=== PATIENT | female | born 1940 | race Two or more races ===

== ENCOUNTER 2021-03-20 09:08 | Inpatient (IN) | payer MEDICARE, MEDICAID ==
[~2021-03-20] VITALS: Ht 142.2 cm; Wt 55.8 kg
[2021-03-20] MEDS ORDERED: ONDANSETRON ODT 4 MG TAB PO ONE (11:00)
[2021-03-20 11:28] LABS: Basophils # (auto) 0 10 ^3/uL (0-0.2); Basophils % (auto) 0.1 % (0.0-2.0); Eosinophils # (auto) 0 10 ^3/uL (0-0.8); Hematocrit 40.7 % (36.0-46.0); Hemoglobin 13.9 g/dL (12.2-16.2); Lymphocytes # (auto) 0.4 10 ^3/uL (0.4-5.4); Lymphocytes % (auto) 3.4 % (10.0-50.0); Mean Corpuscular Hemoglobin 31.5 pg (28.0-32.0); Mean Corpuscular Volume 92.4 fL (80.0-100.0); Monocytes # (auto) 0.5 10 ^3/uL (0-1.3); Monocytes % (auto) 4.6 % (0.0-12.0); Neutrophils # (auto) 10.5 10 ^3/uL (1.6-8.6); Neutrophils % (auto) 91.9 % (37.0-80.0); Red Cell Distribution Width 13.1 % (11.8-14.3); White Blood Cell 11.5 10^3/uL (4.4-10.8)
[2021-03-20 11:42] LABS: Albumin 3.9 g/dL (3.4-5.0); Calcium 9.2 mg/dL (8.5-10.1); Potassium 4.3 mmol/L (3.5-5.1)
[2021-03-20 12:00] LABS: BUN/Creatinine Ratio 18.4; Bilirubin, Total 0.7 mg/dL (0.2-1.0); Total Protein 8.4 g/dL (6.4-8.2)
[2021-03-20 14:45] LABS: Urine Bacteria FEW /hpf (None Seen); Urine Blood Negative /uL (Negative); Urine Mucus FEW (None Seen); Urine Specific Gravity 1.028 (1.001-1.035); Urine WBC 4 /hpf (0 - 5)
[2021-03-20] MEDS ORDERED: PANTOPRAZOLE 40 MG/10 ML VIAL INJ IV ONE (19:15)
[2021-03-20] MEDS ORDERED: hydrALAZINE HCL 20 MG/ML VL IV PRN (19:15)
[2021-03-20] MEDS ORDERED: SUCRALFATE 1 GM/10 ML ORAL SUSP PO ONE (19:15)
[2021-03-20] MEDS ORDERED: ONDANSETRON HCL 4 MG/2 ML VIAL IV PRN (19:15)
[2021-03-20] MEDS ORDERED: cefTRIAXone 1GM/50ML D5W 50 ML IV ONE (19:15)
[2021-03-20] MEDS ORDERED: hydrOXYzine 25 MG TAB or CAP PO PRN (19:15)
[2021-03-20] MEDS ORDERED: metroNIDAZOLE 500MG/100ML 100 ML IV ONE (19:15)
[2021-03-20] MEDS ORDERED: ALUM & MAG HYDROX-SIMETH LIQ(MAALOX) 30 ML PO PRN (19:30)
[2021-03-20] MEDS ORDERED: NITROGLYCERIN 0.4 MG SL TAB SL PRN (19:30)
[2021-03-20] MEDS ORDERED: HYDROcodone-ACET 5/325MG TAB PO PRN (19:30)
[2021-03-20] MEDS ORDERED: LORazepam 0.5 MG TAB PO PRN (19:30)
[2021-03-20] MEDS ORDERED: MORPHINE SULFATE INJECTION 2 MG/ML SYRG IV PRN ×2 (19:30)
[2021-03-20] MEDS ORDERED: DOCUSATE SOD 100 MG CAP PO PRN (19:30)
[2021-03-20] MEDS ORDERED: METOCLOPRAMIDE HCL 5MG/ml INJ 2ml VIAL IV PRN (19:30)
[2021-03-20 21:16] LABS: Barbiturate Scree,Urine NEGATIVE (NEGATIVE); Benzodiazephine Screen, Urine NEGATIVE (NEGATIVE); Cannabinoid Screen, Urine NEGATIVE (NEGATIVE); Cocaine Screen, Urine NEGATIVE (NEGATIVE)
[2021-03-20 21:21] LABS: Amphetamine Screen, Urine NEGATIVE (NEGATIVE); Opiate Scree,Urine NEGATIVE (NEGATIVE); Phencyclidine Screen, Urine NEGATIVE (NEGATIVE)
[2021-03-20 21:26] LABS: Cholesterol 286 mg/dL (< 200); HDL Cholesterol 61 mg/dL (40-59); LDL Cholesterol 186 mg/dL (< 100); Triglycerides 96 mg/dL (< 150)
[2021-03-20] MEDS ORDERED: ATORVASTATIN 20 MG TAB PO SCH (22:00)
[2021-03-21] MEDS: SODIUM CHLORIDE 0.9% 1,000 ML IV SCH ×2 (04:49→11:45)
[2021-03-21] MEDS: OXYBUTYNIN CHL 5 MG TAB PO SCH ×2 (04:52→10:19)
[2021-03-21] MEDS ORDERED: metroNIDAZOLE 500MG/100ML 100 ML IV SCH ×2 (06:00→14:00)
[2021-03-21 06:47] VITALS: BP 117/46
[2021-03-21] MEDS ORDERED: SUCRALFATE 1 GM/10 ML ORAL SUSP PO SCH ×3 (07:00→17:00)
[2021-03-21] MEDS ORDERED: cefTRIAXone 1GM/50ML D5W 50 ML IV SCH (09:00)
[2021-03-21 09:07] LABS: Basophils # (auto) 0 10 ^3/uL (0-0.2); Basophils % (auto) 0.6 % (0.0-2.0); Eosinophils # (auto) 0 10 ^3/uL (0-0.8); Eosinophils % (auto) 0.5 % (0.0-7.0); Hematocrit 34.4 % (36.0-46.0); Hemoglobin 11.9 g/dL (12.2-16.2); Lymphocytes # (auto) 1.1 10 ^3/uL (0.4-5.4); Lymphocytes % (auto) 21.5 % (10.0-50.0); Mean Corpuscular Hemoglobin 31.8 pg (28.0-32.0); Mean Corpuscular Hgb Conc. 34.6 g/dL (32.0-36.0); Monocytes # (auto) 0.9 10 ^3/uL (0-1.3); Monocytes % (auto) 17.4 % (0.0-12.0); Nucleated Red Blood Cells % 0.1 %; Red Blood Cells 3.74 10^6/uL (4.0-5.20)
[2021-03-21 09:35] LABS: INR 1.08 (0.9-1.15); Partial Thromboplastin Time 25.4 sec (23.6-33.0)
[2021-03-21] MEDS ORDERED: FLORASTOR (S. BOULARDII) 250 MG CAP PO SCH (10:00)
[2021-03-21] MEDS ORDERED: ENOXAPARIN SOD 40 MG/0.4 ML SYRINGE SC SCH (10:00)
[2021-03-21] MEDS ORDERED: VALSARTAN 80 MG TAB PO SCH (10:00)
[2021-03-21] MEDS ORDERED: PANTOPRAZOLE 40 MG/10 ML VIAL INJ IV SCH (10:00)
[2021-03-21] MEDS ORDERED: LEVO500T31 PO (11:56)
[2021-03-21] MEDS ORDERED: PANT40T PO (11:56)
[2021-03-21] MEDS ORDERED: ONDA-144 PO (11:56)
[2021-03-21] MEDS ORDERED: levoFLOXacin 500 MG TAB PO SCH (13:00)
[2021-03-21 13:08] LABS: Albumin 3.2 g/dL (3.4-5.0); Calcium 8.2 mg/dL (8.5-10.1); Potassium 3.5 mmol/L (3.5-5.1)
[2021-03-21 13:14] LABS: BUN/Creatinine Ratio 20.3; Bilirubin, Total 0.3 mg/dL (0.2-1.0); Phosphorus 2.4 mg/dL (2.5-4.90); Total Protein 6.9 g/dL (6.4-8.2); Uric Acid 4.1 mg/dL (2.6-6.0)
[2021-03-23 14:02] LABS: Hepatitis A Ab IgM Negative; Hepatitis B Core IgM Negative
[2021-03-23 14:03] LABS: Hepatitis C Antibody Negative (Negative)
== END 2021-03-21 15:23 | disposition home or self-care (01) | DRG 445 ==
LOC: ER 09:08 → OVERFLOW 19:24 → WEST WING 03-21 04:13
PROVIDERS: ADMIT Hospitalist; ATTEND Family Medicine
DX: K80.20 Calculus of gallbladder without cholecystitis without obstruction (principal); N39.0 Urinary tract infection, site not specified; F41.9 Anxiety disorder, unspecified; K21.9 Gastro-esophageal reflux disease without esophagitis; K44.9 Diaphragmatic hernia without obstruction or gangrene; D72.828 Other elevated white blood cell count; R74.01 Elevation of levels of liver transaminase levels; Z20.822 Contact with and (suspected) exposure to COVID-19; E78.5 Hyperlipidemia, unspecified; I10 Essential (primary) hypertension; Z86.73 Personal history of transient ischemic attack (TIA), and cerebral infarction without residual deficits
CPT/HCPCS: 36415; 74176; 80053; 80061; 80074; 80307; 81001; 82306; 83036; 83690; 83735; 83880; 84100; 84443; 84484; 84550; 85025; 85379; 85610; 85730; 86677; 87040; 87086; 87426; 93005; C9113; G0378; J0696; J3490; Q0162

== ENCOUNTER → 2021-10-16 | Outpatient (CLI) | payer MEDICARE, MEDICAID ==
[~2021-10-16] MED LIST: LEVO500T31 PO; ONDA-144 PO; PANT40T PO
== END | disposition home or self-care (01) ==
LOC: LAB 15:23
PROVIDERS: ATTEND Obstetrics & Gynecology Obstetrics
DX: L28.0 Lichen simplex chronicus (principal)

== ENCOUNTER 2025-02-01 10:54 | Inpatient (IN) | payer MEDICARE, MEDICAID ==
[~2025-02-01] VITALS: Ht 142.2 cm; Wt 56.9 kg
[2025-02-01 12:22] VITALS: PULSE 96; RESP 16; O2SAT 98
[2025-02-01] MEDS ORDERED: SODIUM CHLORIDE 0.9% 1,000 ML IV ONE (13:00)
[2025-02-01 13:42] LABS: Hematocrit 38.4 % (36.0-46.0); Hemoglobin 13.0 g/dL (12.2-16.2); Mean Corpuscular Hemoglobin 31.4 pg (28.0-32.0); Mean Corpuscular Volume 92.5 fL (80.0-100.0); Nucleated Red Blood Cells % 0.0 %
--- NOTE | 2025-02-01 13:42 | DVH ---
CLINICAL HISTORY: Diffuse abdominal pain constipation TECHNIQUE: CT of the abdomen and pelvis was performed without IV contrast. This exam was performed according to our departmental dose optimization program. Up-to-date CT equipment and radiation dose reduction techniques are utilized as appropriate. CTDI 5.6 DLP 234 COMPARISON: CT ABD PELVIS WO/W on DOS: 07/02/24 FINDINGS: Abdomen/Pelvis: The spleen, pancreas, adrenal glands, kidneys, and liver are grossly unremarkable. The uterus is absent. The bladder is not well distended therefore not well evaluated. There are numerous small gallstones. The abdominal aorta is normal in course and caliber. There are mild atherosclerotic calcifications. There is no free intraperitoneal air or fluid. There is no enlarged abdominal pelvic lymph node. There is no small small bowel wall thickening or dilatation. There is a moderate amount of stool within the colon. There is a possible stricture at the distal sigmoid colon, best seen on image 54 series 2. There is mild rectosigmoid colon wall thickening. There is colonic diverticulosis. There is a mildly inflamed diverticulum. There is an irregular linear band seen between the distal and mid sigmoid colon. Other: The imaged lower thorax demonstrates breathing changes. No acute osseous abnormality is evident. There are chronic moderate T12 and mild L2 vertebral body compression fractures. Impression: Mild appearing acute sigmoid colon diverticulitis. Moderate amount of stool within the colon with possible stricture within the distal sigmoid colon. Possibilities include stricture from diverticulitis or mass. Further workup recommended. Linear band between the mid and distal sigmoid colon may represent a fibrotic band with a fistula not excluded. Cholelithiasis.
[2025-02-01 13:56] LABS: Chloride 103 mmol/L (98-107); Potassium 4.4 mmol/L (3.5-5.1); Sodium 139 mmol/L (136-145)
[2025-02-01 13:57] LABS: Anion Gap 8 (5-15); Carbon Dioxide 28 mmol/L (20-31)
[2025-02-01 13:58] LABS: Calcium 9.6 mg/dL (8.7-10.4)
[2025-02-01 14:02] LABS: BUN/Creatinine Ratio 14.7 (10.0-20.0); Blood Urea Nitrogen 11 mg/dL (9-23)
[2025-02-01 14:09] LABS: Glucose 108 mg/dL (74-106)
--- NOTE | 2025-02-01 14:19 | ED.PDOC ---
General HPI Comments 84F who is nepali speaking presents to the ER w/ daughter who can translate and w/ the pt having prior MHx of HTN, GERD, UTI, Fractured spine:SHx of Appendectomy and the c/c of constipation. Daughter reports on the pt having lower ABD pain for 1 month and recently going to [facility] on the end of December and being admitted for 4 days. Pt was diagnosed w/ a UTI and was prescribed Meds. Pt is currently having the lower abd pain associated w/ dysur ia. Denies any symptoms at this time. Patient denies any CP, SOB, dizziness, numbness, weakness, tingling, fever, chills, or recent fall. Chief Complaint: Constipation Time Seen by MD: 13:45 Reviewed notes: Nurses Notes, Medications, Allergies Allergies: Coded Allergies: No Known Drug Allergy (Verified Allergy, Unknown, 03/20/21) Home Meds Active Scripts Ondansetron (Zofran) 4 Mg Tab, 1 TAB PO Q6HR PRN, #20 TAB Prov:JANE GARRISON MD 03/21/21 Pantoprazole Sodium Sesquihydr (Pantoprazole Sodium) 40 Mg Tab, 40 MG PO BID, #30 TAB Prov:JANE GARRISON MD 03/21/21 Levofloxacin (Levaquin) 500 Mg Tab, 500 MG PO DAILY, #7 TAB Prov:JANE GARRISON MD 03/21/21 Information Source: Patient, Relative (Child) Mode of Arrival: Ambulatory Severity: Moderate Duration: Since onset Prehospital treatment: None Onset: Spontaneous Symptoms: Dysuria History of: None Location: Abdomen (lower ABD) associated signs and symptoms: Abdominal Pain, Dysuria Past Medical History PAST MEDICAL HISTORY: GERD, HTN, UTI'S Past Medical History (Other): Back Fracture Surgical History: Appendectomy [employer]ELOPER History: Denies all [employer] Hx Family History Family History: Reviewed,noncontributory to illness, Unknown Social History Smoker: Non-Smoker Alcohol: Denies ETOH Use Drugs: Denies Drug Use Lives In: Home Constitutional: denies: chills, diaphoresis, fatigue, fever, malaise, sweats, weakness, others EENTM: denies: blurred vision, double vision, ear bleeding, ear discharge, ear drainage, ear pain, ear ringing, eye pain, eye redness, hearing loss, mouth pain, mouth swelling, nasal discharge, nose bleeding, nose congestion, nose pain, photophobia, tearing, throat pain, throat swelling, voice changes, others Respiratory: denies: cough, hemoptysis, orthopnea, SOB at rest, shortness of breath, SOB with excertion, stridor, wheezing, others Cardiovascular: denies: chest pain, dizzy spells, diaphoresis, Dyspnea on exertion, edema, irregular heart beat, left arm pain, lightheadedness, palpitations, PND, syncope, others Gastrointestinal: reports: abdominal pain; denies: abdomen distended, blood streaked bowels, constipated, diarrhea, dysphagia, difficulty swallowing, hematemesis, melena, nausea, poor appetite, poor fluid intake, rectal bleeding, rectal pain, vomiting, others Genitourinary: reports: dysuria; denies: abnormal vagina bleeding, burning, dyspareunia, flank pain, frequency, hematuria, incontinence, pain, , vag chandan discharge, urgency, others Neurological: denies: dizziness, fainting, headache, left sided numbness, left sided weakness, numbness, paresthesia, pre-existing deficit, right sided numbness, right sided weakness, seizure, speech problems, tingling, tremors, weakness, others Musculoskeletal: denies: back pain, gout, joint pain, joint swelling, muscle pain, muscle stiffness, neck pain, others Integumetry: denies: bruises, change in color, change in hair/nails, dryness, laceration, lesions, lumps, rash, wounds, others Allergic/Immunocompromised: denies: Difficulty Healing, Frequent Infections, Hives, Itching, others Hematologic/Lymphatic: denies: anemia, blood clots, easy bleeding, easy bruising, swollen glands, others Endocrine: denies: excessive hunger, excessive sweating, excessive thirst, excessive urination, flushing, intolerance to cold, intolerance to heat, unexplained weight gain, unexplained weight loss, others Psychiatric: denies: anxiety, bipolar disorder, depression, hopeless, panic disorder, schizophrenia, sleepless, suicidal, others All Other Systems: Reviewed and Negative Physical Exam General Appearance: Moderate Distress, Normal HEENT: Normal ENT Inspection, PERRL/EOMI, Pharynx Normal, TMs Normal Neck: Full Range of Motion, Non-Tender, Normal, Normal Inspection Respiratory: Chest Non-Tender, Lungs Clear, No Accessory Muscle Use, No Respiratory Distress, Normal Breath Sounds Cardiovascular: No Edema, No JVD, No Murmur, No Gallop, Normal Peripheral Pulses, Regular Rate/Rhythm Breast Exam: Deferred Gastrointestinal: LLQ, No Organomegaly, No Pulsatile Mass, Normal Bowel Sounds, Soft, Suprapubic, Tenderness Genitalia: Deferred Pelvic: Deferred Rectal: Deferred Extremities: No calf tenderness, Normal capillary refill, Normal inspection, Normal range of motion, Non-tender, No pedal edema Musculoskeletal : Apperance: Normal Neurologic: Alert, coconut candy maker II-XII nml as Tested, No Motor Deficits, Normal Affect, Normal Mood, No Sensory Deficits Cerebellar Function: NOT DONE Reflexes: NOT DONE Skin: Dry, Normal Color, Warm Peripheral Pulses: 1+ carotid (R), 1+ carotid (L) Lymphatic: No Adenopathy Was a procedure done? Was a procedure done?: No Differential Diagnosis Kidney stone (Female): Appendicitis, DJD, Pyelonephritis Kidney stone (Male): N/A Penile/Scrotal: N/A Urinary Problem (Male): N/A Urinary Problem (Female): Appendicitis, Impaction, UTI, Other (Diverticulitis abscess mass) X-Ray, Labs, Meds, VS Vital Signs Date Time Temp Pulse Resp B/P (MAP) Pulse Ox O2 Delivery O2 Flow Rate FiO2 02/01/25 13:45 98.9 93 15 152/72 (98) 97 98.9 02/01/25 12:22 96 16 98 Room Air* 0 21 02/01/25 12:18 98.7 102 16 156/95 (115) 97 98.7 02/01/25 10:58 98.0 99 16 148/80 100 98.0 Lab Test 02/01/25 13:27 Range/Units White Blood Count 7.2 4.4-10.8 10^3/uL Red Blood Count 4.15 4.0-5.20 10^6/uL Hemoglobin 13.0 12.2-16.2 g/dL Hematocrit 38.4 36.0-46.0 % Mean Corpuscular Volume 92.5 80.0-100.0 fL Mean Corpuscular Hemoglobin 31.4 28.0-32.0 pg Mean Corpuscular Hemoglobin Concent 34.0 32.0-36.0 g/dL Red Cell Distribution Width 12.6 11.8-14.3 % Platelet Count 309 140-450 10^3/uL Mean Platelet Volume 7.1 6.9-10.8 fL Neutrophils (%) (Auto) 67.1 37.0-80.0 % Lymphocytes (%) (Auto) 20.7 10.0-50.0 % Monocytes (%) (Auto) 10.7 0.0-12.0 % Eosinophils (%) (Auto) 0.8 0.0-7.0 % Basophils (%) (Auto) 0.7 0.0-2.0 % Neutrophils # (Auto) 4.9 1.6-8.6 10 ^3/uL Lymphocytes # (Auto) 1.5 0.4-5.4 10 ^3/uL Monocytes # (Auto) 0.8 0-1.3 10 ^3/uL Eosinophils # (Auto) 0.1 0-0.8 10 ^3/uL Basophils # (Auto) 0.1 0-0.2 10 ^3/uL Nucleated Red Blood Cells 0.0 % Sodium Level 139 136-145 mmol/L Potassium Level 4.4 3.5-5.1 mmol/L Chloride Level 103 98-107 mmol/L Carbon Dioxide Level 28 20-31 mmol/L Anion Gap 8 5-15 Blood Urea Nitrogen 11 9-23 mg/dL Creatinine 0.75 0.550-1.02 mg/dL Glomerular Filtration Rate Calc 77 >90 mL/min BUN/Creatinine Ratio 14.7 10.0-20.0 Serum Glucose 108 H 74-106 mg/dL Calcium Level 9.6 8.7-10.4 mg/dL X-Ray, Labs, Meds, VS Comment Course in the emergency department eventful patient came in complaining of abdominal pain persistent for four days and also constipation patient has been to several places was admitted even once for three days and was sent home and the patient is still in pain she was treated one for diverticulitis CBC is normal BNP negative Urine pending CT abdomen and pelvis shows diverticulitis gallstones compression fracture T12- L2 and there is maybe a formation or abscess or mass around the diverticulitis and need further workup Patient will be admitted for further care up and need to see GI for further care Time of 1ST Reevaluation: 14:15 Reevaluation 1ST: Unchanged Time of 2ND Reevaluation: 14:32 Reevaluation 2ND: Unchanged Patient Education/Counseling: Diagnosis, Treatment, Prognosis Family Education/Counseling: Diagnosis, Treatment, Prognosis SEPSIS Sepsis Screen Date sepsis recognized/suspect: Feb 01, 2025 Time Sepsis recognized/suspect: 1100 Recent Procedure: No On Antibiotic Therapy: No Respiratory Rate >20: No Heart Rate >90: Yes Temp<36 C (96.8 F) or >38.3 C: No SBP <90 or MAP <65 mmHG: No New Acute Mental Status Change: No Is the patient on CPAP, BIPAP,: No Physician Orders Urinalysis (02/01/25 12:59) Ct Ab Pel Wo Con-No Oral Or Iv (02/01/25 12:59) Sodium Chloride 0.9% (02/01/25 13:00) Ceftriaxone 1gm/50ml (Rocephin) (02/01/25 14:45) Metronidazole 500mg/100ml (Flagyl 500mg/ (02/01/25 14:45) Vital Signs Date Time Temp Pulse Resp B/P (MAP) Pulse Ox O2 Delivery O2 Flow Rate FiO2 02/01/25 13:45 98.9 93 15 152/72 (98) 97 98.9 02/01/25 12:22 96 16 98 Room Air* 0 21 02/01/25 12:18 98.7 102 16 156/95 (115) 97 98.7 02/01/25 10:58 98.0 99 16 148/80 100 98.0 Laboratory Tests Test 02/01/25 13:27 White Blood Count 7.2 10^3/uL (4.4-10.8) Departure 1 Departure Time of Disposition: 14:32 Impression: Primary Impression: Acute abdominal pain Additional Impressions: Cholelithiasis Qualified Codes: K80.20 - Calculus of gallbladder without cholecystitis without obstruction Acute diverticulitis Disposition: 09 ADMITTED INPATIENT Admit to: [facility] Condition: Fair Critical Care Note Critical Care Time?: No Stability Stability form required: Yes Heart Score Heart Score: Heart Score Response (Comments) Value History Slightly Suspicious 0 EKG N/A 0 Age >65 2 Risk Factors 1 or 2 risk factors 1 Troponin N/A 0 Total 3 I personally scribed for BRII SILVA MD ([email or web address]) on 02/01/25 at 14:19. Electronically submitted by Jose Schroeder ([email or web address]). BRII SILVA MD Feb 01, 2025 14:19
[2025-02-01] MEDS: POLYETHYLENE GLYCOL 17 GM PWDR PO PRN (16:20)
[2025-02-01] MEDS: SODIUM CHLORIDE 0.9% 500 ML IV ONE (16:20)
[2025-02-01 16:24] LABS: Urine Protein, UAD Negative (Negative)
--- NOTE | 2025-02-01 16:37 | DVHHPRES ---
History of Present Illness Resident Creating Document: JHAJBernardoALONZO RESIDENT History of Present Illness Patient is a 84-year-old female with a medical history of hypertension, constipation, diverticulitis presented to the ED with a chief complaint of intractable lower abdominal pain. Patient reported that she has had pain in her lower abdomen in the hypogastrium, left and the right inguinal compartment which has been going on for the last 2 weeks and has been gradually progressive. Patient reports she has not had a good bowel 2 weeks and has only small pellets of hard stool. She reports some relief with the taking magnesium citrate but has not been taking it regularly. As per the patient's daughter patient was admitted to the [facility] about a month ago and reportedly was diagnosed with diverticulitis and sent home on IV antibiotics for a week and stool softeners during which time she had some relief but now has been constipated for the last 3 weeks. Reports the last colonoscopy a year ago with gastro group which was apparently normal and she has been having sigmoidoscopy every 6 months at [facility] since then and has to in the last 1 year the latest was in October 2024 which was apparently normal and no malignancy or mass was reported. Past medical history as per HPI Surgical history: Appendectomy Social history: Lives with the daughter and denies smoking, alcohol, drug use Home medications: Valsartan 160 mg, carvedilol 6.25 b.i.d., pantoprazole 40 b.i.d., stool softeners and laxatives Review of Systems Review of Systems Complains of [id number] pain in the lower abdomen Denies nausea or vomiting Reports appetite has been okay Constipation with the no good bowel movement in the last 2 weeks Denies any fever, chills Allergies: Coded Allergies: No Known Drug Allergy (Verified Allergy, Unknown, 03/20/21) Medications Current Medications Medications Dose Ordered Sig/Juan Route Start Time Stop Time Status Last Admin Dose Admin Polyethylene Glycol 17 gm DAILYPRN PRN PO 02/01/25 15:30 Sennosides 17.2 mg HS PO 02/01/25 22:00 Ceftriaxone Sodium 50 ml @ 100 mls/hr DAILY@09 IV 02/02/25 09:00 Metronidazole 100 ml @ 100 mls/hr Q8HR IV 02/01/25 22:00 Exam Vital Signs Vital Signs Date Time Temp Pulse Resp B/P (MAP) Pulse Ox O2 Delivery O2 Flow Rate FiO2 02/01/25 13:45 98.9 93 15 152/72 (98) 97 98.9 02/01/25 12:22 Room Air* 0 21 Exam Skin - Patients skin is warm and dry. HEENT - normocephalic, atraumatic, moist mucous membranes, no pallor or icterus. Neck - full ROM, no LAD, no JVD Pulmonary - B/L clear breath sounds without any rales or wheezing. cardiovascular - regular S1,S2 heard, no added sounds, no murmurs heard. GI - soft abdomen with tenderness to palpation in the lower abdomen. Bowel sounds normoactive Neurological - Patient is A/O X 4 . Bilateral upper extremity strength 5/5, b ilateral lower extremity strength 5/5, no facial droop, normal speech, no tremor, no sensory deficiets. Labs/Xrays Labs Test 02/01/25 13:27 Range/Units White Blood Count 7.2 4.4-10.8 10^3/uL Red Blood Count 4.15 4.0-5.20 10^6/uL Hemoglobin 13.0 12.2-16.2 g/dL Hematocrit 38.4 36.0-46.0 % Mean Corpuscular Volume 92.5 80.0-100.0 fL Mean Corpuscular Hemoglobin 31.4 28.0-32.0 pg Mean Corpuscular Hemoglobin Concent 34.0 32.0-36.0 g/dL Red Cell Distribution Width 12.6 11.8-14.3 % Platelet Count 309 140-450 10^3/uL Mean Platelet Volume 7.1 6.9-10.8 fL Neutrophils (%) (Auto) 67.1 37.0-80.0 % Lymphocytes (%) (Auto) 20.7 10.0-50.0 % Monocytes (%) (Auto) 10.7 0.0-12.0 % Eosinophils (%) (Auto) 0.8 0.0-7.0 % Basophils (%) (Auto) 0.7 0.0-2.0 % Neutrophils # (Auto) 4.9 1.6-8.6 10 ^3/uL Lymphocytes # (Auto) 1.5 0.4-5.4 10 ^3/uL Monocytes # (Auto) 0.8 0-1.3 10 ^3/uL Eosinophils # (Auto) 0.1 0-0.8 10 ^3/uL Basophils # (Auto) 0.1 0-0.2 10 ^3/uL Nucleated Red Blood Cells 0.0 % Sodium Level 139 136-145 mmol/L Potassium Level 4.4 3.5-5.1 mmol/L Chloride Level 103 98-107 mmol/L Carbon Dioxide Level 28 20-31 mmol/L Anion Gap 8 5-15 Blood Urea Nitrogen 11 9-23 mg/dL Creatinine 0.75 0.550-1.02 mg/dL Glomerular Filtration Rate Calc 77 >90 mL/min BUN/Creatinine Ratio 14.7 10.0-20.0 Serum Glucose 108 H 74-106 mg/dL Calcium Level 9.6 8.7-10.4 mg/dL SEPSIS Sepsis Screen Date sepsis recognized/suspect: Feb 01, 2025 Time Sepsis recognized/suspect: 1100 Recent Procedure: No On Antibiotic Therapy: No Respiratory Rate >20: No Heart Rate >90: Yes Temp<36 C (96.8 F) or >38.3 C: No SBP <90 or MAP <65 mmHG: No New Acute Mental Status Change: No Is the patient on CPAP, BIPAP,: No Physician Orders Urinalysis (02/01/25 12:59) Ct Ab Pel Wo Con-No Oral Or Iv (02/01/25 12:59) Ceftriaxone 1gm/50ml (Rocephin) (02/01/25 14:45) Metronidazole 500mg/100ml (Flagyl 500mg/ (02/01/25 14:45) Admit (02/01/25 15:29) Oxygen By Nasal Cannula (02/01/25 15:29) Stat Ekg For Chest Pain (02/01/25 15:29) Notify Md Of Changes From Base (02/01/25 15:29) Polyethylene Glycol 17g Powder (Miralax (02/01/25 15:30) Senna Pod Tablet (Senokot Tablet) (02/01/25 22:00) Ceftriaxone 1gm/50ml (Rocephin) (02/02/25 09:00) Metronidazole 500mg/100ml (Flagyl 500mg/ (02/01/25 22:00) Magnesium Citrate Solution (Citrate Of M (02/01/25 16:15) Sodium Chloride 0.9% (02/01/25 16:15) Sodium Chloride 0.9% (02/01/25 16:15) Pantoprazole Tablet (Protonix Tablet) (02/02/25 06:00) Acetaminophen Tablet (Tylenol Tablet) (02/01/25 16:15) Ibuprofen Tablet (Motrin Tablet) (02/01/25 16:15) Valsartan (Diovan) (02/02/25 10:00) Full Liq Diet (02/01/25 Dinner) Vital Signs Date Time Temp Pulse Resp B/P (MAP) Pulse Ox O2 Delivery O2 Flow Rate FiO2 02/01/25 13:45 98.9 93 15 152/72 (98) 97 98.9 02/01/25 12:22 96 16 98 Room Air* 0 21 02/01/25 12:18 98.7 102 16 156/95 (115) 97 98.7 02/01/25 10:58 98.0 99 16 148/80 100 98.0 Laboratory Tests Test 02/01/25 13:27 White Blood Count 7.2 10^3/uL (4.4-10.8) Assessment/Plan Assessment/Plan Acute intractable abdominal pain Severe constipation Sigmoid diverticulitis Possible stricture/mass in the sigmoid colon Cholelithiasis H/o GERD - full liquid diet - IV fluids - IV antibiotics ceftriaxone and metronidazole - magnesium citrate, daily MiraLax and senna - patient reports to have a colonoscopy about a year ago with a gastro group, last sigmoidoscopy in October 2024 at [facility] and as reported by daughter was normal - GI consulted for a possible sigmoid/colonoscopy - gallbladder ultrasound pending - patient might need enema PUD prophylaxis: Protonix Goals of care discussed with the patient and her daughter for over 18 minutes. Full code Time spent: 34 minutes Plan discussed with Dr. Acosta Plan discussed with: Patient, Daughter My Orders Orders - ALONZO HERNANDEZ RESIDENT Procedure Category Date Status Time Admit ADMIT 02/01/25 Transmitted 15:29 Oxygen By Nasal RT 02/01/25 Transmitted Cannula 15:29 Stat Ekg For Chest TIFFANIE 02/01/25 In Process Pain 15:29 Notify Of Changes TIFFANIE 02/01/25 In Process From Base 15:29 Polyethylene Glycol PHA 02/01/25 In Process 17g Powder (Miralax 15:30 Senna Pod Tablet PHA 02/01/25 In Process (Senokot Tablet) 22:00 Ceftriaxone 1gm/50ml PHA 02/02/25 In Process (Rocephin) 09:00 Metronidazole PHA 02/01/25 In Process 500mg/100ml (Flagyl 22:00 Magnesium Citrate PHA 02/01/25 Logged Solution (Citrate Of M 16:15 Sodium Chloride 0.9% PHA 02/01/25 In Process 16:15 Sodium Chloride 0.9% PHA 02/01/25 In Process 16:15 Pantoprazole Tablet PHA 02/02/25 Logged (Protonix Tablet) 06:00 Acetaminophen Tablet PHA 02/01/25 Logged (Tylenol Tablet) 16:15 Ibuprofen Tablet PHA 02/01/25 Logged (Motrin Tablet) 16:15 Valsartan (Diovan) PHA 02/02/25 Verified 10:00 Full Liq Diet DIET 02/01/25 Verified Dinner Date of Service: Feb 01, 2025 Billing Provider: MADIE ACOSTA MD Common Visit Codes: 43213-UTBOXOO INP/OBS CARE (HIGH) Secondary Visit Codes: 96755-[id number] CARE PLAN 30 MINUTES ALONZO HERNANDEZ RESIDENT Feb 01, 2025 16:37 MADIE ACOSTA MD Feb 01, 2025 18:03
[2025-02-01 16:59] LABS: Alanine Aminotransferase 22.0 U/L (7-40); Albumin 4.5 g/dL (3.2-4.8); Bilirubin, Direct 0.1 mg/dL (<0.3); Bilirubin, Total 0.5 mg/dL (0.2-1.0); Total Protein 8.0 g/dL (5.7-8.2)
[2025-02-01 17:03] LABS: Alkaline Phosphatase 119.0 U/L (46-116)
--- NOTE | 2025-02-01 17:44 | DVH ---
ULTRASOUND ABDOMEN, LIMITED RIGHT UPPER QUADRANT: REASON FOR EXAM: Cholelithiasis, r/o cholecystitis TECHNIQUE: Real-time sector scans in the transverse and longitudinal planes were obtained through the right upper quadrant of the abdomen. FINDINGS: The liver is of normal size and contour. There is hepatopetal flow in the portal vein. There is no intrahepatic biliary ductal dilatation. The common bile duct measures 4 mm. There is gallbladder sludge. There are several tiny echogenic gallstones. There is no gallbladder wall thickening. There is a sonographic Haq's sign. The pancreas is obscured by bowel gas. The right kidney measures 8.9 cm. No hydronephrosis or nephrolithiasis is identified. There is no evidence of right renal mass or cyst. The visualized portions of the abdominal aorta demonstrate no evidence of aneurysmal dilatation. The visualized inferior vena cava is unremarkable. There is no free fluid identified in the right upper quadrant. IMPRESSION: Cholelithiasis. Sonographic Haq's sign is present. Correlate clinically for acute cholecystitis.
[2025-02-01 17:45] VITALS: BP 151/62; PULSE 77; RESP 18; TEMP 98.2; O2SAT 96
[2025-02-01] MEDS: VALSARTAN 80 MG TAB PO ONE (18:27)
[2025-02-01] MEDS: SODIUM CHLORIDE 0.9% 1,000 ML IV ONE (18:28)
[2025-02-01] MEDS: MAGNESIUM CITRATE SOLUTION 300 ML BTL PO ONE (18:53)
[2025-02-01 20:00] VITALS: RESP 16
[2025-02-01 21:00] VITALS: BP 143/62; PULSE 84; RESP 19; TEMP 98.1; O2SAT 95
[2025-02-01] MEDS: SENNA 8.6 MG TAB PO SCH (23:28)
[2025-02-02] VITALS (8 sets, daily range): BP systolic 132–156; BP diastolic 40–79; PULSE 66–72; RESP 14–18; TEMP 96.7–98.4; O2SAT 95–98
[2025-02-02] MEDS: PANTOPRAZOLE 40 MG TAB PO SCH (05:26)
[2025-02-02 07:21] LABS: Hematocrit 34.8 % (36.0-46.0); Hemoglobin 11.9 g/dL (12.2-16.2); Mean Corpuscular Hemoglobin 32.2 pg (28.0-32.0); Mean Corpuscular Volume 94.4 fL (80.0-100.0); Nucleated Red Blood Cells % 0.4 %
[2025-02-02 07:37] LABS: Chloride 106 mmol/L (98-107); Potassium 4.3 mmol/L (3.5-5.1); Sodium 142 mmol/L (136-145)
[2025-02-02 07:38] LABS: Anion Gap 8 (5-15); Carbon Dioxide 28 mmol/L (20-31)
[2025-02-02 07:39] LABS: Calcium 9.4 mg/dL (8.7-10.4)
[2025-02-02 07:43] LABS: BUN/Creatinine Ratio 13.0 (10.0-20.0); Glucose 93 mg/dL (74-106)
[2025-02-02 07:44] LABS: Blood Urea Nitrogen 9 mg/dL (9-23)
[2025-02-02] MEDS: POLYETHYLENE GLYCOL 17 GM PWDR PO SCH (09:36)
[2025-02-02] MEDS: VALSARTAN 80 MG TAB PO SCH (09:38)
[2025-02-02] MEDS: HYDROCORTISONE ACET 25 MG RECTAL SUPP PR ONE (12:15)
--- NOTE | 2025-02-02 12:30 | DVHINCON2 ---
GI Consult Consult Note GI consult note Date of Consultation: 02/02/2025 Chief Complaint: Severe constipation Referring Physician: Dr. Acosta H&P: 84-year-old female admitted with complains of no abdominal pain, ongoing for the past two weeks with gradually worsening pain. Last bowel movement five days ago, passing hard stool with slight red blood noticed and complaining of rectal pain. Patient has history of constipation. Also having slight abdominal di scomfort. Patient last colonoscopy one year ago at [facility] within normal limits per patient. Status post sigmoidoscopy six months ago at [facility]. Recent admission to [facility] with diagnosis of diverticulitis Past Medical History: Hypertension, constipation, diverticulitis Past Surgical History: Appendectomy Social History: NO smoking, drinking ETOH and use of illegal drugs. Family History: Noncontributory Review of Systems: Constitutional: no fever, chill, weight loss HEENT: no eye pain, no hearing loss, no oral lesion, no scleral icterus Heart: no chest pain, no chest pressure Lung: no cough, no dyspnea with exertion Abdomen: see HPI Physical exam: General: NAD, AAOX3 Chest: lung santamaria clear to auscultation Heart: RRR, no murmur Abdomen: non-distended, slight lower abdominal tenderness to palpation, +BS Labs: Labs Test 02/02/25 05:10 02/01/25 13:27 02/01/25 12:15 Range/Units White Blood Count 5.4 4.4-10.8 10^3/uL Red Blood Count 3.69 L 4.0-5.20 10^6/uL Hemoglobin 11.9 L 12.2-16.2 g/dL Hematocrit 34.8 L 36.0-46.0 % Mean Corpuscular Volume 94.4 80.0-100.0 fL Mean Corpuscular Hemoglobin 32.2 H 28.0-32.0 pg Mean Corpuscular Hemoglobin Concent 34.1 32.0-36.0 g/dL Red Cell Distribution Width 12.6 11.8-14.3 % Platelet Count 278 140-450 10^3/uL Mean Platelet Volume 7.6 6.9-10.8 fL Neutrophils (%) (Auto) 60.6 37.0-80.0 % Lymphocytes (%) (Auto) 24.2 10.0-50.0 % Monocytes (%) (Auto) 13.4 H 0.0-12.0 % Eosinophils (%) (Auto) 1.2 0.0-7.0 % Basophils (%) (Auto) 0.6 0.0-2.0 % Neutrophils # (Auto) 3.3 1.6-8.6 10 ^3/uL Lymphocytes # (Auto) 1.3 0.4-5.4 10 ^3/uL Monocytes # (Auto) 0.7 0-1.3 10 ^3/uL Eosinophils # (Auto) 0.1 0-0.8 10 ^3/uL Basophils # (Auto) 0 0-0.2 10 ^3/uL Nucleated Red Blood Cells 0.4 % Erythrocyte Sedimentation Rate 62 H 0-20 mm/hr Sodium Level 142 136-145 mmol/L Potassium Level 4.3 3.5-5.1 mmol/L Chloride Level 106 98-107 mmol/L Carbon Dioxide Level 28 20-31 mmol/L Anion Gap 8 5-15 Blood Urea Nitrogen 9 9-23 mg/dL Creatinine 0.69 0.550-1.02 mg/dL Glomerular Filtration Rate Calc 84 >90 mL/min BUN/Creatinine Ratio 13.0 10.0-20.0 Serum Glucose 93 74-106 mg/dL Calcium Level 9.4 8.7-10.4 mg/dL C-Reactive Protein High Sensitivity 1.09 H <1.0 mg/dL Thyroid Stimulating Hormone (TSH) 4.46 0.55-4.78 uIU/mL Total Bilirubin 0.5 0.2-1.0 mg/dL Direct Bilirubin 0.1 <0.3 mg/dL Aspartate Amino Transferase (AST) 30 13-40 U/L Alanine Aminotransferase (ALT) 22 7-40 U/L Alkaline Phosphatase 119 H 46-116 U/L Total Protein 8.0 5.7-8.2 g/dL Albumin 4.5 3.2-4.8 g/dL Urine Color Light-yellow Yellow Urine Clarity Clear Clear Urine pH 6.0 5.0-9.0 Urine Specific Valentines 1.008 1.001-1.035 Urine Protein Negative Negative Urine Ketones Negative Negative Urine Blood Negative Negative /uL Urine Nitrite Negative Negative Urine Bilirubin Negative Negative Urine Urobilinogen Normal Negative mg/dL Urine Leukocyte Esterase Negative Negative /uL Urine RBC <1 0 - 4 /hpf Urine Microscopic WBC < 1 0-5 /HPF Urine Squamous Epithelial Cells Few <5 /hpf Urine Bacteria None seen None Seen /hpf Urine Glucose Normal Normal mg/dL Imaging: CT abdomen pelvis Impression: Mild appearing acute sigmoid colon diverticulitis. Moderate amount of stool within the colon with possible stricture within the distal sigmoid colon. Possibilities include stricture from diverticulitis or mass. Further workup recommended. Linear band between the mid and distal sigmoid colon may represent a fibrotic band with a fistula not excluded. Cholelithiasis. Abdominal ultrasound IMPRESSION: Cholelithiasis. Sonographic Haq's sign is present. Correlate clinically for acute cholecystitis. Assessment: Abdominal pain Severe constipation Diverticulitis Cholelithiasis Plan: -discussed with Dr. Yahir Snyder and lactulose Anusol suppository If no bowel movement in the next 24-48 hours possible consideration for using of enema at that time IV antibiotics Advance diet as tolerated Conservative management recommended at this time CEA level Thank you for this consult Date of Service: Feb 02, 2025 Billing Provider: HARDIK GARRISON Common Visit Codes: CONSULT ONLY Consultation Codes: [id number] CONSULT <60MIN HARDIK GARRISON Feb 02, 2025 12:30
[2025-02-02] MEDS: IBUPROFEN 400 MG TAB PO PRN (13:42)
--- NOTE | 2025-02-02 18:43 | DVHPNRES ---
Progress Note Date Seen: Feb 02, 2025 Resident Creating Document: DIDIER HENRIQUEZ RESIDENT Medical Necessity Reason Pt with a Central, PICC or Fol: No Subjective Review of Systems Patient is an 84-year-old female with past medical history of hypertension, constipation, diverticulitis, who presented to the hospital chief complaint of intractable lower abdominal pain. Patient denies any nausea, vomiting, diarrhea. patient states that she has been constipated since 5 days and has not had a bowel movement. Complains of lower abdominal pain in the hypogastrium, left and right inguinal compartments which has been there for the last 2 weeks but has been progressively getting worse. Patient states that she has been having small hard pellets of stool since 2 weeks. Patient states that she has been taking magnesium citrate but has not been taking it regularly. as per daughter patient was recently admitted to [facility] a month ago and was diagnosed with diverticulitis. Patient also reports having sigmoidoscopy every 6 months at [facility] and the latest colonoscopy 1 year ago which was in October 2024 that was negative for malignancy or masses. Past medical history as per HPI Surgical history: Appendectomy Social history: Lives with the daughter and denies smoking, alcohol, drug use Home medications: Valsartan 160 mg, carvedilol 6.25 b.i.d., pantoprazole 40 b.i.d., stool softeners and laxatives 02/02/2025: Patient seen at bedside. Patient today has not had a bowel movement. Last bowel movement was 5 days ago. Patient is given MiraLAX, lactulose, GI consulted. Objective vital signs Vital Sign Date Time Temp Pulse Resp B/P (MAP) Pulse Ox O2 Delivery O2 Flow Rate FiO2 02/02/25 16:45 98.0 72 18 156/79 (104) 97 98.0 02/02/25 08:00 Room Air* 0 21 Total Intake and Output 02/01/25 02/01/25 02/02/25 15:00 23:00 07:00 Intake Total 400 ml Balance 400 ml medications Current Medications Medications Dose Ordered Sig/Juan Route Start Time Stop Time Status Last Admin Dose Admin Sennosides 17.2 mg HS PO 02/01/25 22:00 02/01/25 23:28 17.2 MG Ceftriaxone Sodium 50 ml @ 100 mls/hr DAILY@09 IV 02/02/25 09:00 02/02/25 09:37 100 MLS/HR Metronidazole 100 ml @ 100 mls/hr Q8HR IV 02/01/25 22:00 02/02/25 13:42 100 MLS/HR Pantoprazole Sodium 40 mg DAILY@0600 PO 02/02/25 06:00 02/02/25 05:26 40 MG Acetaminophen 650 mg Q6HP PRN PO 02/01/25 16:15 Ibuprofen 400 mg Q8HP PRN PO 02/01/25 16:15 02/02/25 13:42 400 MG Valsartan 80 mg DAILY PO 02/02/25 10:00 02/02/25 09:38 80 MG Polyethylene Glycol 17 gm DAILY PO 02/02/25 10:00 02/02/25 09:36 17 GM Docusate Sodium 100 mg BID PO 02/02/25 22:00 Lactulose 30 ml BID PO 02/02/25 22:00 Examination General: Patient alert and oriented in person, place and time. Patient following commands. HEENT: Normocephalic, atraumatic, moist mucous membranes Respiratory/pulmonary: Clear lungs bilaterally, vesicular murmurs present in almost all lung santamaria, no associated crackles or wheezes. Cardiovascular: Normal heart sounds S1 and S2 with no associated murmurs Abdomen: Abdomen nondistended, there is no pain to palpation in any of the abdominal quadrants, no palpable masses. Tenderness on left lower quadrant. Extremities: There is no peripheral edema present at the lower extremities. Peripheral Pulses: 3+ Radial (R). 3+ Radial (L). 3+ Dorsalis pedis (R). 3+ Dorsalis pedis(L) Skin: No rashes or pruritus, there is no sacral edema present at this time. Neurological: Intact cranial nerves with no focal neurologic deficits laboratory and microbiology Laboratory Tests 02/02/25 05:10 Test 02/02/25 05:10 Range/Units Serum Glucose 93 74-106 mg/dL Microbiology Date/Time Source Procedure Growth Status 02/01/25 17:27 Nose MRSA Screen - Final Complete Problem List/Assessment/Plan Problem List/Assessment/Plan Acute intractable abdominal pain Severe constipation Sigmoid diverticulitis Possible stricture/mass in the sigmoid colon Cholelithiasis H/o GERD - full liquid diet - IV fluids - IV antibiotics ceftriaxone and metronidazole - magnesium citrate, daily MiraLax and senna - patient reports to have a colonoscopy about a year ago with a gastro group, last sigmoidoscopy in October 2024 at [facility] and as reported by daughter was normal - GI consulted for a possible sigmoid/colonoscopy - gallbladder ultrasound pending - patient might need enema - MiraLax - lactulose - suppository PUD prophylaxis: Protonix Goals of care addressed with the patient for more than 27 minutes: Full code status Case discussed with Dr. Acosta, patient and nurse Plan discussed with: Patient Date of Service: Feb 02, 2025 Billing Provider: MADIE ACOSTA MD Common Visit Codes: [id number] INP/OBS CARE(HIGH) DIDIER HENRIQUEZ RESIDENT Feb 02, 2025 18:43 MADIE ACOSTA MD Feb 02, 2025 23:02
[2025-02-02] MEDS: LACTULOSE 20Gm/30ML SOLN PO SCH (20:55)
[2025-02-02] MEDS: DOCUSATE SOD 100 MG CAP PO SCH (20:56)
[2025-02-03] VITALS (8 sets, daily range): BP systolic 132–176; BP diastolic 66–96; PULSE 64–102; RESP 16–20; TEMP 97.9–99.3; O2SAT 91–97
[2025-02-03] MEDS: ACETAMINOPHEN 325 MG TAB PO PRN (05:25)
[2025-02-03 06:34] LABS: Hematocrit 34.2 % (36.0-46.0); Hemoglobin 11.9 g/dL (12.2-16.2); Mean Corpuscular Hemoglobin 32.6 pg (28.0-32.0); Mean Corpuscular Volume 94.2 fL (80.0-100.0); Nucleated Red Blood Cells % 0.1 %
[2025-02-03 07:02] LABS: Anion Gap 10 (5-15); Carbon Dioxide 26 mmol/L (20-31); Chloride 106 mmol/L (98-107); Potassium 4.5 mmol/L (3.5-5.1); Sodium 142 mmol/L (136-145)
[2025-02-03 07:03] LABS: Calcium 9.2 mg/dL (8.7-10.4)
[2025-02-03 07:08] LABS: BUN/Creatinine Ratio 10.4 (10.0-20.0); Glucose 105 mg/dL (74-106)
[2025-02-03 07:09] LABS: Blood Urea Nitrogen 7 mg/dL (9-23)
[2025-02-03] MEDS: FLEET ENEMA(ADULT) 135 ML PR ONE (11:08)
[2025-02-03] MEDS ORDERED: METR-344 PO (13:44)
[2025-02-03] MEDS ORDERED: CEFP200T15 PO (13:44)
--- NOTE | 2025-02-03 15:34 | DVHPNRES ---
Progress Note Date Seen: Feb 03, 2025 Resident Creating Document: DIDIER HENRIQUEZ RESIDENT Medical Necessity Reason Pt with a Central, PICC or Fol: No Subjective Review of Systems Patient is an 84-year-old female with past medical history of hypertension, constipation, diverticulitis, who presented to the hospital chief complaint of intractable lower abdominal pain. Patient denies any nausea, vomiting, diarrhea. patient states that she has been constipated since 5 days and has not had a bowel movement. Complains of lower abdominal pain in the hypogastrium, left and right inguinal compartments which has been there for the last 2 weeks but has been progressively getting worse. Patient states that she has been having small hard pellets of stool since 2 weeks. Patient states that she has been taking magnesium citrate but has not been taking it regularly. as per daughter patient was recently admitted to [facility] a month ago and was diagnosed with diverticulitis. Patient also reports having sigmoidoscopy every [address] [facility] and the latest colonoscopy 1 year ago which was in October 2024 that was negative for malignancy or masses. Past medical history: hypertension, constipation, diverticulitis Surgical history: Appendectomy Social history: Lives with the daughter and denies smoking, alcohol, drug use Home medications: Valsartan 160 mg, carvedilol 6.25 b.i.d., pantoprazole 40 b.i.d., stool softeners and laxatives 02/02/2025: Patient seen at bedside. Patient today has not had a bowel movement. Last bowel movement was 5 days ago. Patient is given MiraLAX, lactulose, GI consulted. 02/03/2025: Patient seen at bedside. Patient today complained of One episode of vomiting overnight, nausea, abdominal pain on palpation. Abdomen is more distended. Patient still did not have a bowel movement. Fleet enema was given, patient still did not have a bowel movement. KUB ordered, shows nonobstructive bowel gas pattern. Large stool burden. Psyllium powder given. GI on board. Objective vital signs Vital Sign Date Time Temp Pulse Resp B/P (MAP) Pulse Ox O2 Delivery O2 Flow Rate FiO2 02/03/25 12:44 98.0 98 18 132/74 (93) 97 98.0 02/03/25 08:00 Room Air* 0 21 Total Intake and Output 02/02/25 02/02/2525 15:00 23:00 07:00 Intake Total 390 ml 400 ml 350 ml Output Total 0 ml Balance 390 ml 400 ml 350 ml medications Current Medications Medications Dose Ordered Sig/Juan Route Start Time Stop Time Status Last Admin Dose Admin Sennosides 17.2 mg HS PO 02/01/25 22:00 02/02/25 20:56 17.2 MG Ceftriaxone Sodium 50 ml @ 100 mls/hr DAILY@09 IV 02/02/25 09:00 02/03/25 09:42 100 MLS/HR Metronidazole 100 ml @ 100 mls/hr Q8HR IV 02/01/25 22:00 02/03/25 05:17 100 MLS/HR Pantoprazole Sodium 40 mg DAILY@0600 PO 02/02/25 06:00 02/03/25 05:18 40 MG Acetaminophen 650 mg Q6HP PRN PO 02/01/25 16:15 02/03/25 05:25 650 MG Ibuprofen 400 mg Q8HP PRN PO 02/01/25 16:15 02/02/25 13:42 400 MG Valsartan 80 mg DAILY PO 02/02/25 10:00 02/02/25 09:38 80 MG Polyethylene Glycol 17 gm DAILY PO 02/02/25 10:00 02/03/25 13:37 17 GM Docusate Sodium 100 mg BID PO 02/02/25 22:00 02/02/25 20:56 100 MG Lactulose 30 ml BID PO 02/02/25 22:00 02/02/25 20:55 30 ML Psyllium Hydrophilic Mucilloid 1 pkg DAILY PO 02/04/25 10:00 Ondansetron HCl 4 mg Q6HPRN PRN IV 02/03/25 15:15 Examination General: Patient alert and oriented in person, place and time. Patient following commands. HEENT: Normocephalic, atraumatic, moist mucous membranes Respiratory/pulmonary: Clear lungs bilaterally, vesicular murmurs present in almost all lung santamaria, no associated crackles or wheezes. Cardiovascular: Normal heart sounds S1 and S2 with no associated murmurs Abdomen: Abdomen distended, pain on palpation of lower abdominal quadrants, no palpable masses. Extremities: There is no peripheral edema present at the lower extremities. Peripheral Pulses: 3+ Radial (R). 3+ Radial (L). 3+ Dorsalis pedis (R). 3+ Dorsalis pedis(L) Skin: No rashes or pruritus, there is no sacral edema present at this time. Neurological: Intact cranial nerves with no focal neurologic deficits laboratory and microbiology Laboratory Tests 02/03/25 05:32 Test 02/03/25 05:32 Range/Units Serum Glucose 105 74-106 mg/dL Microbiology Date/Time Source Procedure Growth Status 02/01/25 17:27 Nose MRSA Screen - Final Complete Problem List/Assessment/Plan Problem List/Assessment/Plan Acute intractable abdominal pain Severe constipation Sigmoid diverticulitis Possible stricture/mass in the sigmoid colon Cholelithiasis H/o GERD - clear liquid diet - IV fluids - IV antibiotics ceftriaxone and metronidazole - magnesium citrate, daily MiraLax and senna - patient reports to have a colonoscopy about a year ago with a gastro group, last sigmoidoscopy in October [address] [facility] and as reported by daughter was normal - GI consulted. - gallbladder ultrasound showed Cholelithiasis. Sonographic Haq's sign is present. - KUB ordered, showed nonobstructive bowel gas pattern. Large stool burden. - patient might need enema - MiraLax - lactulose - suppository - Fleet enema - psyllium powder PUD prophylaxis: Protonix Goals of care addressed with the patient for more than 27 minutes: Full code status Case discussed with Dr. Jacobsen, patient and nurse Plan discussed with: Patient Date of Service: Feb 03, 2025 Billing Provider: MADIE JACOBSEN MD Common Visit Codes: [id number] INP/OBS CARE(HIGH) DIDIER HENRIQUEZ RESIDENT Feb 03, 2025 15:34 MADIE JACOBSEN MD Feb 03, 2025 23:38
[2025-02-03] MEDS: ONDANSETRON HCL 4 MG/2 ML VIAL IV PRN (15:39)
[2025-02-03] MEDS: PSYLLIUM PWD 5.8GM PKG PO ONE (15:40)
--- NOTE | 2025-02-03 15:50 | DVH ---
Date: 02/03/2025 03:12 PM Examination: XY KUB ABDOMEN SINGLE VIEW History: ileus Comparison: None TECHNIQUE: Frontal views of the abdomen was obtained. FINDINGS: Bowel gas pattern is unremarkable. Large stool burden throughout the colon The lung bases are unremarkable. No acute osseous abnormality identified. Stable compression fracture of L1 is noted unchanged from CT 11 06/28/2024 or MRI of 05/21/2024. IMPRESSION: 1. Nonobstructive bowel gas pattern. 2. Large stool burden throughout the colon 3. Stable compression fracture of L1 and T12.
[2025-02-03 16:29] LABS: INR 1.05 (0.9-1.15); Partial Thromboplastin Time 25.9 SEC (24.5-34.5); Prothrombin Time 11.1 sec (9.3-11.8)
--- NOTE | 2025-02-03 17:44 | DVHPN2 ---
Progress Note Date Seen: Feb 03, 2025 Resident Creating Document: ANAND TIERNEY RESIDENT Medical Necessity Reason Pt with a Central, PICC or Fol: No Subjective Review of Systems Patient seen and examined. Not passing gas, no bowel movements. Rectal exam completed, rectal tone intact, vault empty, no masses or stool seen or felt. Objective vital signs Vital Sign Date Time Temp Pulse Resp B/P (MAP) Pulse Ox O2 Delivery O2 Flow Rate FiO2 02/03/25 16:37 98.2 102 20 176/74 (108) 93 98.2 02/03/25 08:00 Room Air* 0 21 Total Intake and Output 02/02/25 02/02/25 02/03/25 15:00 23:00 07:00 Intake Total 390 ml 400 ml 350 ml Output Total 0 ml Balance 390 ml 400 ml 350 ml medications Current Medications Medications Dose Ordered Sig/Juan Route Start Time Stop Time Status Last Admin Dose Admin Sennosides 17.2 mg HS PO 02/01/25 22:00 02/02/25 20:56 17.2 MG Ceftriaxone Sodium 50 ml @ 100 mls/hr DAILY@09 IV 02/02/25 09:00 02/03/25 09:42 100 MLS/HR Metronidazole 100 ml @ 100 mls/hr Q8HR IV 02/01/25 22:00 02/03/25 15:39 100 MLS/HR Pantoprazole Sodium 40 mg DAILY@0600 PO 02/02/25 06:00 02/03/25 05:18 40 MG Acetaminophen 650 mg Q6HP PRN PO 02/01/25 16:15 02/03/25 05:25 650 MG Ibuprofen 400 mg Q8HP PRN PO 02/01/25 16:15 02/03/25 15:39 400 MG Valsartan 80 mg DAILY PO 02/02/25 10:00 02/03/25 15:40 80 MG Polyethylene Glycol 17 gm DAILY PO 02/02/25 10:00 02/03/25 13:37 17 GM Docusate Sodium 100 mg BID PO 02/02/25 22:00 02/02/25 20:56 100 MG Lactulose 30 ml BID PO 02/02/25 22:00 02/02/25 20:55 30 ML Psyllium Hydrophilic Mucilloid 1 pkg DAILY PO 02/04/25 10:00 Ondansetron HCl 4 mg Q6HPRN PRN IV 02/03/25 15:15 02/03/25 15:39 4 MG Examination Patient lying in bed, in no acute distress General: Well-built, afebrile, palor, mucosae are moist Cardiovascular: Regular S1 and S2. No murmurs, gallops or rubs. No JVD elevation. No pedal edema Respiratory: Normal B/L air entry on room air. Clear lung sounds on auscultation Abdomen: Soft tender and distended, normoactive bowel sounds, no rebound tenderness, no organomegaly, no masses Genitourinary: Deferred MSK/skin: Mobilizes 4 limbs. Skin is dry and warm Neurological: No motor, no sensitive deficits, normal speech. Pupils are isocoric and reactive. Psych/Mental Status: A/Ox3 laboratory and microbiology Laboratory Tests 02/03/25 05:32 Test 02/03/25 05:32 Range/Units Serum Glucose 105 74-106 mg/dL Microbiology Date/Time Source Procedure Growth Status 02/01/25 17:27 Nose MRSA Screen - Final Complete Labs and/or images reviewed: Labs reviewed by me, Image(s) reviewed by me Problem List/Assessment/Plan Problem List/Assessment/Plan Acute sigmoid colon diverticulitis-mild ? Sigmoid stricture Constipation History of cholelithiasis L1/T12 compression fracture-stable KUB today shows nonobstructive bowel gas pattern. Large stool burden. Patient had multiple sigmoidoscopies in the recent past, which were unremarkable according to the patient. Plan: Diet deescalated to clear liquid, continue stool softeners. Patient refusing lactulose and docusate. Continue Protonix 40 mg IV daily No masses or stool felt on rectal exam. Continuous ileum daily, IV Zofran PRN Continue IV antibiotics Per daughter, patient does not take fibers or eats fruits vegetables. We will continue to follow up Plan discussed with patient, daughter in which all questions have been answered Case discussed with Dr. Sinclair Plan discussed with: Patient My Orders My Orders Orders - ANAND TIERNEY RESIDENT Procedure Category Date Status Time Clear Liq Diet DIET 02/03/25 Transmitted Dinner Kub Abdomen Single XY 02/03/25 Resulted View 15:04 Psyllium Powder PHA 02/04/25 In Process (Metamucil Powder) 10:00 Ondansetron Hcl PHA 02/03/25 In Process (Zofran) 15:15 ANAND TIERNEY RESIDENT Feb 03, 2025 17:44
[2025-02-03] MEDS: METOCLOPRAMIDE HCL 5MG/ml INJ 2ml VIAL IV ONE (21:01)
[2025-02-04 05:00] VITALS: BP 149/83; PULSE 106; RESP 18; TEMP 97.9; O2SAT 96
[2025-02-04 06:10] LABS: Hematocrit 34.1 % (36.0-46.0); Hemoglobin 11.8 g/dL (12.2-16.2); Mean Corpuscular Hemoglobin 33.6 pg (28.0-32.0); Mean Corpuscular Volume 96.8 fL (80.0-100.0); Nucleated Red Blood Cells % 0.0 %
[2025-02-04 06:30] LABS: Alanine Aminotransferase 17 U/L (7-40); Albumin 3.9 g/dL (3.2-4.8); Alkaline Phosphatase 97 U/L (46-116); Anion Gap 12 (5-15); BUN/Creatinine Ratio 7.4 (10.0-20.0); Bilirubin, Total 0.3 mg/dL (0.2-1.0); Calcium 9.3 mg/dL (8.7-10.4); Carbon Dioxide 24 mmol/L (20-31); Chloride 103 mmol/L (98-107); Potassium 3.7 mmol/L (3.5-5.1); Sodium 139 mmol/L (136-145); Total Protein 6.9 g/dL (5.7-8.2)
[2025-02-04 06:34] LABS: Blood Urea Nitrogen 5 mg/dL (9-23); Glucose 150 mg/dL (74-106)
[2025-02-04 08:00] VITALS: PULSE 72; RESP 18; O2SAT 98
[2025-02-04 09:00] VITALS: BP 153/72; PULSE 74; RESP 17; TEMP 99.1; O2SAT 96
[2025-02-04] MEDS: PSYLLIUM PWD 5.8GM PKG PO SCH (10:00)
[2025-02-04 13:00] VITALS: BP 142/78; PULSE 92; RESP 17; TEMP 99.6; O2SAT 95
--- NOTE | 2025-02-04 13:05 | DVH ---
STUDY: US GALLBLADDER TECHNIQUE: RUQ ultrasound was obtained using standard technique with Doppler. INDICATIONS: r/o cholecystitis GB ONLY DUPLICATE ORDER FINDINGS: GALLBLADDER: Sludge and small stones within the gallbladder. Gallbladder wall is thickened to 7.7 mm with pericholecystic fluid. Positive Haq's sign. COMMON BILE DUCT: 5.6 mm. IMPRESSION: 1. Acute cholecystitis.
--- NOTE | 2025-02-04 14:05 | DVHINCON2 ---
Date of service: Feb 04, 2025 History of Present Illness 84-year-old female who had a unremarkable colonoscopy year and a half ago admitted secondary to abdominal pain and distention with severe constipation. CT of the abdomen and pelvis on admission showed possible colonic stricture. Past Medical History Hypertension. History of diverticulitis. Constipation. Past Surgical History Appendectomy Family History: Cardiovascular disease G8 MOTHER, Family History Noncontributory Social History Denies alcohol, tobacco, IV drug use Allergies: Coded Allergies: No Known Drug Allergy (Verified Allergy, Unknown, 03/20/21) Home Meds Active Scripts Metronidazole (Flagyl) 500 Mg Tab, 1 TAB PO TID, #30 TAB [facility]/03/25 Cefpodoxime Proxetil (Cefpodoxime Proxetil) 200 Mg Tab, 1 TAB PO BID, #20 TAB [facility] 02/03/25 Ondansetron (Zofran) 4 Mg Tab, 1 TAB PO Q6HR PRN, #20 TAB Prov:JANE GARRISON MD 03/21/21 Pantoprazole Sodium Sesquihydr (Pantoprazole Sodium) 40 Mg Tab, 40 MG PO BID, #30 TAB Prov:JANE GARRISON MD 03/21/21 Levofloxacin (Levaquin) 500 Mg Tab, 500 MG PO DAILY, #7 TAB Prov:JANE GARRISON MD 03/21/21 Current Medications Current Medications Medications (Trade) Dose Ordered Sig/Juan Route PRN Reason Start Time Stop Time Status Last Admin Psyllium Hydrophilic Mucilloid (Metamucil Powder) 1 pkg DAILY PO 02/04/25 10:00 Ondansetron HCl (Zofran) 4 mg Q6HPRN PRN IV NAUSEA / VOMITING 02/03/25 15:15 02/04/25 06:11 Pantoprazole Sodium (Protonix) 40 mg DAILY IV 02/05/25 10:00 Vital Signs Vital Signs Date Time Temp Pulse Resp B/P (MAP) Pulse Ox O2 Delivery O2 Flow Rate FiO2 02/04/25 09:00 99.1 74 17 153/72 (99) 96 99.1 02/04/25 08:00 Room Air* 0 21 Physical Exam GEN: Elderly female in no acute distress. Alert. HEENT: Normocephalic atraumatic. Moist mucous membranes. Anicteric sclerae. CV: RRR Respiratory: Coarse breath sounds ABD: Distended abdomen with minimal diffuse tenderness to palpation with minimal guarding. Rectal: Palpable mass versus stricture in the rectum barely able to touch with a fingertip CT of the abdomen and pelvis: Moderate amount of stool within the colon with a possible stricture of the distal sigmoid colon with mild rectosigmoid colon wall thickening. Labs/Diagnostic Data Labs Test 02/04/25 04:58 02/03/25 15:48 02/02/25 14:13 02/02/25 05:10 Range/Units White Blood Count 7.9 # 4.4-10.8 10^3/uL Red Blood Count 3.52 L 4.0-5.20 10^6/uL Hemoglobin 11.8 L 12.2-16.2 g/dL Hematocrit 34.1 L 36.0-46.0 % Mean Corpuscular Volume 96.8 80.0-100.0 fL Mean Corpuscular Hemoglobin 33.6 H 28.0-32.0 pg Mean Corpuscular Hemoglobin Concent 34.7 32.0-36.0 g/dL Red Cell Distribution Width 12.3 11.8-14.3 % Platelet Count 292 140-450 10^3/uL Mean Platelet Volume 7.2 6.9-10.8 fL Neutrophils (%) (Auto) 80.3 H 37.0-80.0 % Lymphocytes (%) (Auto) 11.7 10.0-50.0 % Monocytes (%) (Auto) 7.8 0.0-12.0 % Eosinophils (%) (Auto) 0.0 0.0-7.0 % Basophils (%) (Auto) 0.2 0.0-2.0 % Neutrophils # (Auto) 6.4 1.6-8.6 10 ^3/uL Lymphocytes # (Auto) 0.9 0.4-5.4 10 ^3/uL Monocytes # (Auto) 0.6 0-1.3 10 ^3/uL Eosinophils # (Auto) 0 0-0.8 10 ^3/uL Basophils # (Auto) 0 0-0.2 10 ^3/uL Nucleated Red Blood Cells 0.0 % Sodium Level 139 136-145 mmol/L Potassium Level 3.7 3.5-5.1 mmol/L Chloride Level 103 98-107 mmol/L Carbon Dioxide Level 24 20-31 mmol/L Anion Gap 12 5-15 Blood Urea Nitrogen 5 L 9-23 mg/dL Creatinine 0.68 0.550-1.02 mg/dL Glomerular Filtration Rate Calc 85 >90 mL/min BUN/Creatinine Ratio 7.4 L 10.0-20.0 Serum Glucose 150 H 74-106 mg/dL Calcium Level 9.3 8.7-10.4 mg/dL Total Bilirubin 0.3 0.2-1.0 mg/dL Aspartate Amino Transferase (AST) 23 13-40 U/L Alanine Aminotransferase (ALT) 17 7-40 U/L Alkaline Phosphatase 97 46-116 U/L Total Protein 6.9 5.7-8.2 g/dL Albumin 3.9 3.2-4.8 g/dL Prothrombin Time 11.1 9.3-11.8 sec Prothrombin Time INR 1.05 0.9-1.15 Activated Partial Thromboplast Time 25.9 24.5-34.5 SEC Carcinoembryonic Antigen 10.31 <=5.0 ng/mL Erythrocyte Sedimentation Rate 62 H 0-20 mm/hr C-Reactive Protein High Sensitivity 1.09 H <1.0 mg/dL Thyroid Stimulating Hormone (TSH) 4.46 0.55-4.78 uIU/mL Test 02/01/25 13:27 02/01/25 12:15 Range/Units Direct Bilirubin 0.1 <0.3 mg/dL Urine Color Light-yellow Yellow Urine Clarity Clear Clear Urine pH 6.0 5.0-9.0 Urine Specific Sutter 1.008 1.001-1.035 Urine Protein Negative Negative Urine Ketones Negative Negative Urine Blood Negative Negative /uL Urine Nitrite Negative Negative Urine Bilirubin Negative Negative Urine Urobilinogen Normal Negative mg/dL Urine Leukocyte Esterase Negative Negative /uL Urine RBC <1 0 - 4 /hpf Urine Microscopic WBC < 1 0-5 /HPF Urine Squamous Epithelial Cells Few <5 /hpf Urine Bacteria None seen None Seen /hpf Urine Glucose Normal Normal mg/dL Microbiology Date/Time Source Procedure Growth Status 02/01/25 17:27 Nose MRSA Screen - Final Complete Assessment 1. Colonic obstruction possibly from a stricture versus a mass Plan/Recommendation 1. NG tube to low intermittent suction 2. We will bowel prep 3. GI consultation for possible colonoscopy 4. If the patient is unable to tolerate the bowel prep, she will need an exploratory laparotomy with colostomy Informed consent: The surgery and its risks including but not limited to infection, bleeding requiring possible blood transfusion with the risk of hepatitis or HIV infection, possibility of not being able to resect the obstructing lesion, possible perioperative UT or stroke were explained to the patient and her daughter. All questions were answered to their satisfaction. They expressed verbal understanding and wished to proceed with the surgery. Plan discussed with: Patient, Daughter NARESH FRANCE MD Feb 04, 2025 14:05
[2025-02-04] MEDS: SODIUM CHLORIDE 0.9% 1,000 ML IV SCH (14:15)
--- NOTE | 2025-02-04 14:30 | DVHPN2 ---
Progress Note Date Seen: Feb 04, 2025 Resident Creating Document: ANAND TIERNEY RESIDENT Medical Necessity Reason Pt with a Central, PICC or Fol: No Subjective Review of Systems no bm, abd distended but soft, not passing gas. Objective vital signs Vital Sign Date Time Temp Pulse Resp B/P (MAP) Pulse Ox O2 Delivery O2 Flow Rate FiO2 02/04/25 13:00 99.6 92 17 142/78 (99) 95 99.6 02/04/25 08:00 Room Air* 0 21 Total Intake and Output 02/03/25 02/03/25 02/04/25 15:00 23:00 07:00 Intake Total 480 ml 450 ml 500 ml Balance 480 ml 450 ml 500 ml medications Current Medications Medications Dose Ordered Sig/Juan Route Start Time Stop Time Status Last Admin Dose Admin Sennosides 17.2 mg HS PO 02/01/25 22:00 02/02/25 20:56 17.2 MG Ceftriaxone Sodium 50 ml @ 100 mls/hr DAILY@09 IV 02/02/25 09:00 02/03/25 09:42 100 MLS/HR Metronidazole 100 ml @ 100 mls/hr Q8HR IV 02/01/25 22:00 02/03/25 22:09 100 MLS/HR Acetaminophen 650 mg Q6HP PRN PO 02/01/25 16:15 02/04/25 06:12 650 MG Ibuprofen 400 mg Q8HP PRN PO 02/01/25 16:15 02/03/25 15:39 400 MG Valsartan 80 mg DAILY PO 02/02/25 10:00 02/03/25 15:40 80 MG Polyethylene Glycol 17 gm DAILY PO 02/02/25 10:00 02/03/25 13:37 17 GM Docusate Sodium 100 mg BID PO 02/02/25 22:00 02/02/25 20:56 100 MG Lactulose 30 ml BID PO 02/02/25 22:00 02/03/25 21:41 30 ML Psyllium Hydrophilic Mucilloid 1 pkg DAILY PO 02/04/25 10:00 Ondansetron HCl 4 mg Q6HPRN PRN IV 02/03/25 15:15 02/04/25 06:11 4 MG Pantoprazole Sodium 40 mg DAILY IV 02/05/25 10:00 Sodium Chloride 1,000 ml @ 100 mls/hr Q10H IV 02/04/25 14:15 Examination Patient lying in bed, in no acute distress General: Well-built, afebrile, palor, mucosae are moist Cardiovascular: Regular S1 and S2. No murmurs, gallops or rubs. No JVD elevation. No pedal edema Respiratory: Normal B/L air entry on room air. Clear lung sounds on auscultation Abdomen: Soft tender and distended, absent bowel sounds, no rebound tenderness, no organomegaly, no masses Genitourinary: Deferred MSK/skin: Mobilizes 4 limbs. Skin is dry and warm Neurological: No motor, no sensitive deficits, normal speech. Pupils are isocoric and reactive. Psych/Mental Status: A/Ox3 laboratory and microbiology Laboratory Tests 02/04/25 04:58 Test 02/04/25 04:58 Range/Units Serum Glucose 150 H 74-106 mg/dL Microbiology Date/Time Source Procedure Growth Status 02/01/25 17:27 Nose MRSA Screen - Final Complete Labs and/or images reviewed: Labs reviewed by me, Image(s) reviewed by me Problem List/Assessment/Plan Problem List/Assessment/Plan Acute sigmoid colon diverticulitis-mild ? Sigmoid stricture. ? Sigmoid mass Large bowl obstruction secondary to above R/O acute cholecystitis Constipation Cholelithiasis L1/T12 compression fracture-stable KUB today shows nonobstructive bowel gas pattern. Large stool burden. Patient had multiple sigmoidoscopies in the recent past, which were unremarkable according to the patient. CT ABD Persistent focal luminal narrowing at the rectosigmoid junction that is concerning for a colon mass, suboptimally evaluated in the absence of enteric contrast. Sigmoidoscopy is recommended. There is a 3.5 cm lobulated hypoenhancing region in the right liver that is concerning for metastatic disease. Moderate to severe distention of the entire colon with stool and gas. Diffuse thickening of the distal sigmoid and the rectum concerning for colitis. Plan: Diet deescalated to NPO, NG to RALF Surgeon consulted - NG to RALF, NPKieran, fleet enema Called floor coverings salesperson GI Dr Paniagua to follow up. Continue Protonix 40 mg IV daily tumor markers ordered No masses or stool felt on rectal exam. Continue IV antibiotics Per daughter, patient does not take fibers or eats fruits vegetables. We will continue to follow up Plan discussed with patient, daughter in which all questions have been answered Case discussed with Dr. Sinclair Plan discussed with: Patient My Orders My Orders Orders - ANAND TIERNEY Procedure Category Date Status Time Kub Abdomen Single XY 02/03/25 Resulted View 15:04 Psyllium Powder PHA 02/04/25 In Process (Metamucil Powder) 10:00 Ondansetron Hcl PHA 02/03/25 In Process (Zofran) 15:15 Pantoprazole PHA 02/05/25 In Process (Protonix) 10:00 ANAND TIERNEY Feb 04, 2025 14:30
[2025-02-04] MEDS ORDERED: IOHEXOL 300 MG/ML 100ML BOTTLE IJ ONE (14:33)
--- NOTE | 2025-02-04 14:34 | DVH ---
Date: 02/04/2025 01:57 PM Examination: XY KUB ABDOMEN SINGLE VIEW History: r/o obsturction Comparison: XY KUB ABDOMEN SINGLE VIEW on DOS: 02/03/25, XY KUB ABDOMEN SINGLE VIEW on DOS: 02/03/25 TECHNIQUE: Frontal views of the abdomen was obtained. FINDINGS: Bowel gas pattern is unremarkable. Large stool burden throughout the colon The lung bases are unremarkable. No acute osseous abnormality identified. Stable compression fracture of L1 is noted unchanged from CT 11 06/28/2024 or MRI of 05/21/2024. IMPRESSION: Nonobstructive bowel gas pattern. Large stool burden throughout the colon Stable compression fracture of L1 and T12. nasogastric tube tip curling in the stomach
[2025-02-04] MEDS: PANTOPRAZOLE 40 MG/10 ML VIAL INJ IV ONE (15:06)
[2025-02-04] MEDS: FLEET ENEMA(ADULT) 135 ML PR ONE (15:06)
--- NOTE | 2025-02-04 15:35 | DVH ---
COMPUTERIZED TOMOGRAPHY ABDOMEN AND PELVIS WITH CONTRAST REASON FOR EXAM: colonic stricture vs mass COMPARISON: CT abdomen/ pelvis without contrast 02/01/2025 ; 03/20/2021. TECHNIQUE: The exam was performed on a Multidetector scanner. Spiral scans were acquired from the diaphragm to the symphysis pubis after administration of IV contrast. 2-D coronal and sagittal reformatted images were provided. Radiation optimization: All CT scans at this facility use at least one of these dose optimization techniques: Automated exposure control mA and/or kV adjustment per patient size (includes targeted exams where dose is matched to clinical indication) or iterative reconstruction. CONTRAST ADMINISTRATION: 80 mL omnipaque 300 intravenously RADIATION DOSE: CTDI: 8.73 mGy DLP: 436.89 mGy-cm FINDINGS: There is minimal dependent atelectasis at the visualized lung bases. There is no pleural effusion. There is no pericardial effusion. There is a small hiatal hernia. There is frothy material in the distal esophagus. There is an enteric tube terminating in the stomach. The spleen is not enlarged. The liver is normal in size and contour. There is hyperdense material along the dependent wall of the gallbladder, likely sludge. There is trace pericholecystic fluid. There is trace fluid in the right pericolic gutter. There is a lobulated hypoenhancing region in the posterior right lobe of the liver measuring 2.8 x 3.5 cm that was not seen on the study dated 03/20/2021 and is concerning for possible metastatic disease. The pancreas is grossly unremarkable. The adrenal glands appear normal. The kidneys enhance symmetrically. No solid renal mass is identified. There is no hydronephrosis of either kidney. There is no abdominal aortic aneurysm. There is extensive atherosclerosis. The urinary bladder is decompressed and is not well evaluated on the current study. The uterus is absent. The ovaries are not seen. There is moderate to severe distention of the entire colon with stool and gas up to 6.1 cm. The appendix is not definitely seen. There is no Pathologic distention of the Small-bowel. There is diffuse mural thickening of the distal sigmoid and the rectum concerning for colitis. There is focal luminal narrowing at the rectosigmoid junction that is concerning for a colon mass, suboptimally evaluated in the absence of enteric contrast. No definite pathologic lymph adenopathy is identified by size criteria. There is no acute osseous abnormality identified. There is chronic appearing mild compression deformity of the superior endplate of T12 and L2, unchanged from prior exams. IMPRESSION: Persistent focal luminal narrowing at the rectosigmoid junction that is concerning for a colon mass, suboptimally evaluated in the absence of enteric contrast. Sigmoidoscopy is recommended. There is a 3.5 cm lobulated hypoenhancing region in the right liver that is concerning for metastatic disease. Moderate to severe distention of the entire colon with stool and gas. Diffuse thickening of the distal sigmoid and the rectum concerning for colitis.
--- NOTE | 2025-02-04 16:52 | DVHPNRES ---
Progress Note Date Seen: Feb 04, 2025 Resident Creating Document: DIDIER HENRIQUEZ RESIDENT Medical Necessity Reason Pt with a Central, PICC or Fol: No Subjective Review of Systems Patient is an 84-year-old female with past medical history of hypertension, constipation, diverticulitis, who presented to the hospital chief complaint of intractable lower abdominal pain. Patient denies any nausea, vomiting, diarrhea. patient states that she has been constipated since 5 days and has not had a bowel movement. Complains of lower abdominal pain in the hypogastrium, left and right inguinal compartments which has been there for the last 2 weeks but has been progressively getting worse. Patient states that she has been having small hard pellets of stool since 2 weeks. Patient states that she has been taking magnesium citrate but has not been taking it regularly. as per daughter patient was recently admitted to [facility] a month ago and was diagnosed with diverticulitis. Patient also reports having sigmoidoscopy every 6 months at [facility] and the latest colonoscopy 1 year ago which was in October 2024 that was negative for malignancy or masses. Past medical history: hypertension, constipation, diverticulitis Surgical history: Appendectomy Social history: Lives with the daughter and denies smoking, alcohol, drug use Home medications: Valsartan 160 mg, carvedilol 6.25 b.i.d., pantoprazole 40 b.i.d., stool softeners and laxatives 02/02/2025: Patient seen at bedside. Patient today has not had a bowel movement. Last bowel movement was 5 days ago. Patient is given MiraLAX, lactulose, GI consulted. 02/03/2025: Patient seen at bedside. Patient today complained of One episode of vomiting overnight, nausea, abdominal pain on palpation. Abdomen is more distended. Patient still did not have a bowel movement. Fleet enema was given, patient still did not have a bowel movement. KUB ordered, shows nonobstructive bowel gas pattern. Large stool burden. Psyllium powder given. GI on board. 02/04/25: patient seen at bedside. Patient today complained of abdominal distention, abdominal pain nausea, vomiting. surgery consulted for possible obstruction. Patient kept NPO. NG tube placed with intermittent low suction. CT abdomen done showed Persistent focal luminal narrowing at the rectosigmoid junction that is concerning for a colon mass, suboptimally evaluated in the absence of enteric contrast. There is a 3.5 cm lobulated hypoenhancing region in the right liver that is concerning for metastatic disease. Moderate to severe distention of the entire colon with stool and gas. Diffuse thickening of the distal sigmoid and the rectum concerning for colitis. Objective vital signs Vital Sign Date Time Temp Pulse Resp B/P (MAP) Pulse Ox O2 Delivery O2 Flow Rate FiO2 02/04/25 13:00 99.6 92 17 142/78 (99) 95 99.6 02/04/25 08:00 Room Air* 0 21 Total Intake and Output 02/03/25 02/03/25 02/04/25 15:00 23:00 07:00 Intake Total 480 ml 450 ml 500 ml Balance 480 ml 450 ml 500 ml medications Current Medications Medications Dose Ordered Sig/Juan Route Start Time Stop Time Status Last Admin Dose Admin Sennosides 17.2 mg HS PO 02/01/25 22:00 02/02/25 20:56 17.2 MG Ceftriaxone Sodium 50 ml @ 100 mls/hr DAILY@09 IV 02/02/25 09:00 02/03/25 09:42 100 MLS/HR Metronidazole 100 ml @ 100 mls/hr Q8HR IV 02/01/25 22:00 02/04/25 15:06 100 MLS/HR Acetaminophen 650 mg Q6HP PRN PO 02/01/25 16:15 02/04/25 06:12 650 MG Ibuprofen 400 mg Q8HP PRN PO 02/01/25 16:15 02/03/25 15:39 400 MG Valsartan 80 mg DAILY PO 02/02/25 10:00 02/03/25 15:40 80 MG Polyethylene Glycol 17 gm DAILY PO 02/02/25 10:00 02/03/25 13:37 17 GM Docusate Sodium 100 mg BID PO 02/02/25 22:00 02/02/25 20:56 100 MG Lactulose 30 ml BID PO 02/02/25 22:00 02/03/25 21:41 30 ML Psyllium Hydrophilic Mucilloid 1 pkg DAILY PO 02/04/25 10:00 Ondansetron HCl 4 mg Q6HPRN PRN IV 02/03/25 15:15 02/04/25 06:11 4 MG Pantoprazole Sodium 40 mg DAILY IV 02/05/25 10:00 Sodium Chloride 1,000 ml @ 100 mls/hr Q10H IV 02/04/25 14:15 02/04/25 14:15 100 MLS/HR Examination General: Patient alert and oriented in person, place and time. Patient following commands. HEENT: Normocephalic, atraumatic, moist mucous membranes Respiratory/pulmonary: Clear lungs bilaterally, vesicular murmurs present in almost all lung santamaria, no associated crackles or wheezes. Cardiovascular: Normal heart sounds S1 and S2 with no associated murmurs Abdomen: Abdomen distended, pain on palpation of lower abdominal quadrants, no palpable masses. Extremities: There is no peripheral edema present at the lower extremities. Peripheral Pulses: 3+ Radial (R). 3+ Radial (L). 3+ Dorsalis pedis (R). 3+ Dorsalis pedis(L) Skin: No rashes or pruritus, there is no sacral edema present at this time. Neurological: Intact cranial nerves with no focal neurologic deficits laboratory and microbiology Laboratory Tests 02/04/25 04:58 Test 02/04/25 04:58 Range/Units Serum Glucose 150 H 74-106 mg/dL Microbiology Date/Time Source Procedure Growth Status 02/01/25 17:27 Nose MRSA Screen - Final Complete Problem List/Assessment/Plan Problem List/Assessment/Plan Acute intractable abdominal pain Severe constipation Sigmoid diverticulitis Possible stricture/mass in the sigmoid colon Colon Mass Cholelithiasis H/o GERD - clear liquid diet - IV fluids - IV antibiotics ceftriaxone and metronidazole - magnesium citrate, daily MiraLax and senna - patient reports to have a colonoscopy about a year ago with a gastro group, last sigmoidoscopy in October 2024 at [facility] and as reported by daughter was normal - GI consulted. - gallbladder ultrasound showed Cholelithiasis. Sonographic Haq's sign is present. - KUB ordered, showed nonobstructive bowel gas pattern. Large stool burden. - patient might need enema - MiraLax - lactulose - suppository - Fleet enema - psyllium powder 02/04/2025: - surgery consulted for possible obstruction - surgeon kept patient NPO and NG tube with low intermittent suction - CT abdomen done showed Persistent focal luminal narrowing at the rectosigmoid junction that is concerning for a colon mass, suboptimally evaluated in the absence of enteric contrast. There is a 3.5 cm lobulated hypoenhancing region in the right liver that is concerning for metastatic disease. Moderate to severe distention of the entire colon with stool and gas. Diffuse thickening of the distal sigmoid and the rectum concerning for colitis. - ordered tumor markers - GI to possibly do colonoscopy - gallbladder ultrasound showed Acute cholecystitis. PUD prophylaxis: Protonix Goals of care addressed with the patient for more than 27 minutes: Full code status Case discussed with Dr. Jacobsen, patient and nurse Plan discussed with: Patient My Orders My Orders Orders - DIDIER HENRIQUEZ Procedure Category Date Status Time Kub Abdomen Single XY 02/04/25 Resulted View 09:44 * Surgical Consult CONS 02/04/25 Transmitted Gallbladder US 02/04/25 Resulted 12:16 Date of Service: Feb 04, 2025 Billing Provider: MADIE JACOBSEN MD Common Visit Codes: [id number] INP/OBS CARE(HIGH) DIDIER HENRIQUEZ Feb 04, 2025 16:52 MADIE JACOBSEN MD Feb 05, 2025 20:02
[2025-02-04 17:00] VITALS: BP 162/79; PULSE 94; RESP 16; TEMP 98; O2SAT 95
--- NOTE | 2025-02-04 17:09 | DVH ---
INDICATION: NGT placement TECHNIQUE: Frontal view of the chest. COMPARISON: None FINDINGS: NG tube tip in the stomach.. The heart and mediastinal contours are grossly unremarkable. There is no evidence of pleural disease. The lungs are clear. The bony structures of the chest are intact without fracture. IMPRESSION: Nasogastric tube tip in the stomach
[2025-02-04 20:00] VITALS: RESP 18; O2SAT 98
[2025-02-05] VITALS (7 sets, daily range): BP systolic 144–176; BP diastolic 67–81; PULSE 79–99; RESP 10–19; TEMP 97.5–98.6; O2SAT 91–98
[2025-02-05 06:30] LABS: Hematocrit 33.9 % (36.0-46.0); Hemoglobin 11.6 g/dL (12.2-16.2); Mean Corpuscular Hemoglobin 31.7 pg (28.0-32.0); Mean Corpuscular Volume 92.8 fL (80.0-100.0); Nucleated Red Blood Cells % 0.0 %
[2025-02-05 06:56] LABS: Alanine Aminotransferase 16 U/L (7-40); Albumin 3.7 g/dL (3.2-4.8); Alkaline Phosphatase 87 U/L (46-116); Anion Gap 11 (5-15); BUN/Creatinine Ratio 15.7 (10.0-20.0); Bilirubin, Total 0.3 mg/dL (0.2-1.0); Blood Urea Nitrogen 11 mg/dL (9-23); Calcium 9.1 mg/dL (8.7-10.4); Carbon Dioxide 24 mmol/L (20-31); Chloride 106 mmol/L (98-107); Sodium 141 mmol/L (136-145); Total Protein 6.6 g/dL (5.7-8.2)
[2025-02-05 06:57] LABS: Glucose 121 mg/dL (74-106); Potassium 3.5 mmol/L (3.5-5.1)
[2025-02-05] MEDS: SODIUM CHLORIDE 0.9% 1,000 ML IV SCH (09:15)
[2025-02-05] MEDS: PANTOPRAZOLE 40 MG/10 ML VIAL INJ IV SCH (09:51)
[2025-02-05] MEDS: GOLYTELY 4L KIT GT ONE (09:52)
--- NOTE | 2025-02-05 10:05 | PRN ---
Misceleneous Note Note Note January 28, 2025 subjective: Patient continues to have abdominal pain. She has an NG-tube in for decompression. Vital Sign Date Time Temp Pulse Resp B/P (MAP) Pulse Ox O2 Delivery O2 Flow Rate FiO2 02/05/25 09:00 98.6 84 15 159/80 (106) 92 98.6 02/04/25 20:00 Room Air* 0 21 Total Intake and Output 02/04/25 02/04/25 02/05/25 15:00 23:00 07:00 Intake Total 980 ml 0 ml 0 ml Balance 980 ml 0 ml 0 ml General: Oriented no distress HEENT: NC/AT EOMI PERRLA-O/P clear, no JVD, NG tube in nose Heart: Regular rate and rhythm Abdomen: Soft, moderate tenderness palpation, distended Extremities: No clubbing cyanosis or edema Laboratory Tests Test 02/05/25 05:40 02/04/25 16:19 02/04/25 14:20 02/03/25 15:48 Range/Units White Blood Count 10.2 # 4.4-10.8 10^3/uL Red Blood Count 3.66 L 4.0-5.20 10^6/uL Hemoglobin 11.6 L 12.2-16.2 g/dL Hematocrit 33.9 L 36.0-46.0 % Mean Corpuscular Volume 92.8 # 80.0-100.0 fL Mean Corpuscular Hemoglobin 31.7 28.0-32.0 pg Mean Corpuscular Hemoglobin Concent 34.2 32.0-36.0 g/dL Red Cell Distribution Width 12.8 11.8-14.3 % Platelet Count 307 140-450 10^3/uL Mean Platelet Volume 7.1 6.9-10.8 fL Neutrophils (%) (Auto) 77.7 37.0-80.0 % Lymphocytes (%) (Auto) 12.8 10.0-50.0 % Monocytes (%) (Auto) 9.2 0.0-12.0 % Eosinophils (%) (Auto) 0.0 0.0-7.0 % Basophils (%) (Auto) 0.3 0.0-2.0 % Neutrophils # (Auto) 7.9 1.6-8.6 10 ^3/uL Lymphocytes # (Auto) 1.3 0.4-5.4 10 ^3/uL Monocytes # (Auto) 0.9 0-1.3 10 ^3/uL Eosinophils # (Auto) 0 0-0.8 10 ^3/uL Basophils # (Auto) 0 0-0.2 10 ^3/uL Nucleated Red Blood Cells 0.0 % Sodium Level 141 136-145 mmol/L Potassium Level 3.5 3.5-5.1 mmol/L Chloride Level 106 98-107 mmol/L Carbon Dioxide Level 24 20-31 mmol/L Anion Gap 11 5-15 Blood Urea Nitrogen 11 9-23 mg/dL Creatinine 0.70 0.550-1.02 mg/dL Glomerular Filtration Rate Calc 84 >90 mL/min BUN/Creatinine Ratio 15.7 10.0-20.0 Serum Glucose 121 H 74-106 mg/dL Calcium Level 9.1 8.7-10.4 mg/dL Total Bilirubin 0.3 0.2-1.0 mg/dL Aspartate Amino Transferase (AST) 27 13-40 U/L Alanine Aminotransferase (ALT) 16 7-40 U/L Alkaline Phosphatase 87 46-116 U/L Total Protein 6.6 5.7-8.2 g/dL Albumin 3.7 3.2-4.8 g/dL Tumor Marker Alpha Fetoprotein Pending CA 19-9 Antigen Pending CA 125 Antigen Pending Carcinoembryonic Antigen 10.84 <=5.0 ng/mL Prothrombin Time 11.1 9.3-11.8 sec Prothrombin Time INR 1.05 0.9-1.15 Activated Partial Thromboplast Time 25.9 24.5-34.5 SEC Test 02/02/25 05:10 02/01/25 13:27 02/01/25 12:15 Range/Units Erythrocyte Sedimentation Rate 62 H 0-20 mm/hr C-Reactive Protein High Sensitivity 1.09 H <1.0 mg/dL Thyroid Stimulating Hormone (TSH) 4.46 0.55-4.78 uIU/mL Direct Bilirubin 0.1 <0.3 mg/dL Urine Color Light-yellow Yellow Urine Clarity Clear Clear Urine pH 6.0 5.0-9.0 Urine Specific [place] 1.008 1.001-1.035 Urine Protein Negative Negative Urine Ketones Negative Negative Urine Blood Negative Negative /uL Urine Nitrite Negative Negative Urine Bilirubin Negative Negative Urine Urobilinogen Normal Negative mg/dL Urine Leukocyte Esterase Negative Negative /uL Urine RBC <1 0 - 4 /hpf Urine Microscopic WBC < 1 0-5 /HPF Urine Squamous Epithelial Cells Few <5 /hpf Urine Bacteria None seen None Seen /hpf Urine Glucose Normal Normal mg/dL Current Medications Medications (Trade) Dose Ordered Sig/Juan Route PRN Reason Start Time Stop Time Status Last Admin Dose Admin Sodium Chloride 1,000 ml @ 150 mls/hr [id number] ONCE IV 02/01/25 13:00 02/01/25 16:07 DC Ceftriaxone Sodium 50 ml @ 100 mls/hr ONCE ONCE IV 02/01/25 14:45 02/01/25 16:20 DC 02/01/25 16:20 Metronidazole 100 ml @ 100 mls/hr ONCE ONCE IV 02/01/25 14:45 02/01/25 16:20 DC 02/01/25 16:20 Polyethylene Glycol (Miralax 17GM Powder) 17 gm DAILYPRN PRN PO FOR CONSTIPATION 02/01/25 15:30 02/01/25 16:38 DC 02/01/25 16:20 Sennosides (Senokot Tablet) 17.2 mg HS PO 02/01/25 22:00 02/02/25 20:56 Ceftriaxone Sodium 50 ml @ 100 mls/hr DAILY@09 IV 02/02/25 09:00 02/05/25 09:51 Metronidazole 100 ml @ 100 mls/hr Q8HR IV 02/01/25 22:00 02/05/25 05:36 Magnesium Citrate (Citrate Of Magnesia Solution) 300 ml ONCE ONCE PO 02/01/25 16:15 02/01/25 16:20 DC 02/01/25 18:53 Sodium Chloride 500 ml @ 500 mls/hr Q1H ONCE IV 02/01/25 16:15 02/01/25 17:14 DC 02/01/25 16:20 Sodium Chloride 1,000 ml @ 75 mls/hr [id number] ONCE IV 02/01/25 16:15 02/02/25 05:34 DC 02/01/25 18:28 Pantoprazole Sodium (Protonix Tablet) 40 mg DAILY@0600 PO 02/02/25 06:00 02/04/25 12:24 DC 02/03/25 05:18 Acetaminophen (Tylenol Tablet) 650 mg Q6HP PRN PO PAIN SCALE 1-3 OR TEMP>100.4 02/01/25 16:15 02/04/25 06:12 Ibuprofen (Motrin Tablet) 400 mg Q8HP PRN PO MODERATE PAIN (4-6 PAIN SCALE) 02/01/25 16:15 02/03/25 15:39 Valsartan (Diovan) 80 mg DAILY PO 02/02/25 10:00 02/03/25 15:40 Polyethylene Glycol (Miralax 17GM Powder) 17 gm DAILY PO 02/02/25 10:00 02/04/25 17:55 DC 02/03/25 13:37 Valsartan (Diovan) 80 mg ONCE ONCE PO 02/01/25 18:00 02/01/25 18:01 DC 02/01/25 18:27 Docusate Sodium (Colace Capsule) 100 mg BID PO 02/02/25 22:00 02/02/25 20:56 Lactulose 30 ml BID PO 02/02/25 22:00 02/03/25 21:41 Hydrocortisone Acetate (Anucort-Hc Suppository) 25 mg ONCE ONCE TX 02/02/25 12:15 02/02/25 13:35 DC 02/02/25 12:15 Sodium Biphosphate/ Sodium Phosphate 135 ml ONCE ONCE TX 02/03/25 10:00 02/03/25 10:01 DC 02/03/25 11:08 Psyllium Hydrophilic Mucilloid (Metamucil Powder) 1 pkg DAILY PO 02/04/25 10:00 02/04/25 17:55 DC Psyllium Hydrophilic Mucilloid (Metamucil Powder) 1 pkg ONCE ONCE PO 02/03/25 15:15 02/03/25 15:18 DC 02/03/25 15:40 Ondansetron HCl (Zofran) 4 mg Q6HPRN PRN IV NAUSEA / VOMITING 02/03/25 15:15 02/04/25 06:11 Metoclopramide HCl (Reglan Injection) 5 mg ONCE ONCE IV 02/03/25 20:30 02/03/25 20:35 DC 02/03/25 21:01 Pantoprazole Sodium (Protonix) 40 mg ONCE ONCE IV 02/04/25 12:30 02/04/25 13:40 DC 02/04/25 15:06 Pantoprazole Sodium (Protonix) 40 mg DAILY IV 02/05/25 10:00 02/05/25 09:51 Sodium Biphosphate/ Sodium Phosphate 135 ml ONCE ONCE TX 02/04/25 13:15 02/04/25 13:40 DC 02/04/25 15:06 Sodium Chloride 1,000 ml @ 100 mls/hr Q10H IV 02/04/25 14:15 02/05/25 09:18 DC 02/05/25 00:15 Iohexol (Omnipaque) 30,000 mg STK-MED ONCE IJ 02/04/25 14:33 02/04/25 14:32 DC Polyethylene Glycol/ Electrolytes (Golytely) 1 kit ONCE ONCE GT 02/05/25 07:45 02/05/25 07:46 DC 02/05/25 09:52 Sodium Chloride 1,000 ml @ 80 mls/hr [id number] IV 02/05/25 09:15 02/05/25 09:15 Impression: 1. Abdominal pain 2. Abdominal distention 3. Abnormal imaging through GI tract 4. Possible sigmoid mass Recommendations: 1. Sigmoidoscopy in the morning with soapsuds enema preparation 2. Consent was obtained, risks, benefits were discussed 3. Further recommendations pending colonoscopy KEY BURGESS MD Feb 05, 2025 10:05
--- NOTE | 2025-02-05 12:07 | DVHPN2 ---
Progress Note - Dictate Date Seen: Feb 05, 2025 Medical Necessity Reason Pt with a Central, PICC or Fol: No Subjective E: no major events o/n. no flatus or BM. still c/o abd distention and pain. vital signs Vital Sign Date Time Temp Pulse Resp B/P (MAP) Pulse Ox O2 Delivery O2 Flow Rate FiO2 02/05/25 09:00 98.6 84 15 159/80 (106) 92 98.6 02/05/25 07:50 Room Air* 0 21 Total Intake and Output 02/04/25 02/04/25 02/05/25 15:00 23:00 07:00 Intake Total 980 ml 0 ml 0 ml Balance 980 ml 0 ml 0 ml medications Current Medications Medications Dose Ordered Sig/Juan Route Start Time Stop Time Status Last Admin Dose Admin Sennosides 17.2 mg HS PO 02/01/25 22:00 02/02/25 20:56 17.2 MG Ceftriaxone Sodium 50 ml @ 100 mls/hr DAILY@09 IV 02/02/25 09:00 02/05/25 09:51 100 MLS/HR Metronidazole 100 ml @ 100 mls/hr Q8HR IV 02/01/25 22:00 02/05/25 05:36 100 MLS/HR Acetaminophen 650 mg Q6HP PRN PO 02/01/25 16:15 02/04/25 06:12 650 MG Ibuprofen 400 mg Q8HP PRN PO 02/01/25 16:15 02/03/25 15:39 400 MG Valsartan 80 mg DAILY PO 02/02/25 10:00 02/03/25 15:40 80 MG Docusate Sodium 100 mg BID PO 02/02/25 22:00 02/02/25 20:56 100 MG Lactulose 30 ml BID PO 02/02/25 22:00 02/03/25 21:41 30 ML Ondansetron HCl 4 mg Q6HPRN PRN IV 02/03/25 15:15 02/04/25 06:11 4 MG Pantoprazole Sodium 40 mg DAILY IV 02/05/25 10:00 02/05/25 09:51 40 MG Sodium Chloride 1,000 ml @ 80 mls/hr [id number] IV 02/05/25 09:15 02/05/25 09:15 80 MLS/HR objective GEN: NAD ABD: soft but very distended with min diffuse TTP. CT of the abdomen and pelvis with IV contrast: Persistent focal luminal narrowing at the rectosigmoid junction concerning for a colon mass. 3.5 cm lobulated hypo enhancing region in the right liver that is concerning for metastatic disease. Moderate to severe distention of the entire colon with stool and gas with diffuse thickening of the distal sigmoid and the rectum concerning for colitis. laboratory and microbiology Laboratory Tests 02/05/25 05:40 Test 02/05/25 05:40 Range/Units Serum Glucose 121 H 74-106 mg/dL Assessment/Plan A: 1. High-grade colonic obstructio likely from a rectosigmoid mass with possible liver metastasis unlikely to improve clinically. P: 1. Exploratory laparotomy with diverting colostomy Informed consent: The surgery and its risks including but not limited to infection, bleeding requiring possible blood transfusion with the risk of hepatitis or HIV infection, possible perioperative [place], CVA, DVT or PE were explained to the patient and her daughter. All questions were answered to their satisfaction. They expressed verbal understanding and wished to proceed with the surgery. Plan discussed with: Patient, Daughter NARESH FRANCE MD Feb 05, 2025 12:07
--- NOTE | 2025-02-05 14:15 | DVH ---
Date: 02/05/2025 01:51 PM Examination: XY KUB ABDOMEN SINGLE VIEW History: CONSTIPATION Comparison: XY KUB ABDOMEN SINGLE VIEW on DOS: 02/04/25, XY KUB ABDOMEN SINGLE VIEW on DOS: 02/03/25 TECHNIQUE: Frontal views of the abdomen was obtained. FINDINGS: Bowel gas pattern is unremarkable. Enteric tube in the stomach The lung bases are unremarkable. No acute osseous abnormality identified. IMPRESSION: 1. Dilated: With scattered stool correlate clinical history for constipation.
--- NOTE | 2025-02-05 14:45 | DVHPN2 ---
Progress Note Date Seen: Feb 05, 2025 Resident Creating Document: ANAND TIERNEY RESIDENT Medical Necessity Reason Pt with a Central, PICC or Fol: No Subjective Review of Systems Not passing gas. Abdomen distended. Hypoactive. NG to LIS. Patient plan to undergo ex lap today. Objective vital signs Vital Sign Date Time Temp Pulse Resp B/P (MAP) Pulse Ox O2 Delivery O2 Flow Rate FiO2 02/05/25 09:00 98.6 84 15 159/80 (106) 92 98.6 02/05/25 07:50 Room Air* 0 21 Total Intake and Output 02/04/25 02/04/25 02/05/25 15:00 23:00 07:00 Intake Total 980 ml 0 ml 0 ml Balance 980 ml 0 ml 0 ml medications Current Medications Medications Dose Ordered Sig/Juan Route Start Time Stop Time Status Last Admin Dose Admin Sennosides 17.2 mg HS PO 02/01/25 22:00 02/02/25 20:56 17.2 MG Ceftriaxone Sodium 50 ml @ 100 mls/hr DAILY@09 IV 02/02/25 09:00 02/05/25 09:51 100 MLS/HR Metronidazole 100 ml @ 100 mls/hr Q8HR IV 02/01/25 22:00 02/05/25 14:17 100 MLS/HR Acetaminophen 650 mg Q6HP PRN PO 02/01/25 16:15 02/04/25 06:12 650 MG Ibuprofen 400 mg Q8HP PRN PO 02/01/25 16:15 02/03/25 15:39 400 MG Valsartan 80 mg DAILY PO 02/02/25 10:00 02/03/25 15:40 80 MG Docusate Sodium 100 mg BID PO 02/02/25 22:00 02/02/25 20:56 100 MG Lactulose 30 ml BID PO 02/02/25 22:00 02/03/25 21:41 30 ML Ondansetron HCl 4 mg Q6HPRN PRN IV 02/03/25 15:15 02/04/25 06:11 4 MG Pantoprazole Sodium 40 mg DAILY IV 02/05/25 10:00 02/05/25 09:51 40 MG Sodium Chloride 1,000 ml @ 80 mls/hr [id number] IV 02/05/25 09:15 02/05/25 09:15 80 MLS/HR Examination Patient lying in bed, in no acute distress General: Well-built, afebrile, palor, mucosae are moist Cardiovascular: Regular S1 and S2. No murmurs, gallops or rubs. No JVD elevation. No pedal edema Respiratory: Normal B/L air entry on room air. Clear lung sounds on auscultation Abdomen: Soft tender and distended, absent bowel sounds, no rebound tenderness, no organomegaly, no masses Genitourinary: Deferred MSK/skin: Mobilizes 4 limbs. Skin is dry and warm Neurological: No motor, no sensitive deficits, normal speech. Pupils are isocoric and reactive. Psych/Mental Status: A/Ox3 laboratory and microbiology Laboratory Tests 02/05/25 05:40 Test 02/05/25 05:40 Range/Units Serum Glucose 121 H 74-106 mg/dL Microbiology Date/Time Source Procedure Growth Status 02/01/25 17:27 Nose MRSA Screen - Final Complete Labs and/or images reviewed: Labs reviewed by me, Image(s) reviewed by me Problem List/Assessment/Plan Problem List/Assessment/Plan Acute sigmoid colon diverticulitis-mild ? Sigmoid stricture. ? Sigmoid mass Large bowl obstruction secondary to above R/O acute cholecystitis Constipation Cholelithiasis L1/T12 compression fracture-stable KUB today shows nonobstructive bowel gas pattern. Large stool burden. Patient had multiple sigmoidoscopies in the recent past, which were unremarkable according to the patient. CT ABD Persistent focal luminal narrowing at the rectosigmoid junction that is concerning for a colon mass, suboptimally evaluated in the absence of enteric contrast. Sigmoidoscopy is recommended. There is a 3.5 cm lobulated hypoenhancing region in the right liver that is concerning for metastatic disease. Moderate to severe distention of the entire colon with stool and gas. Diffuse thickening of the distal sigmoid and the rectum concerning for colitis. Plan: Diet deescalated to NPO, NG to LIS. Patient would benefit from ex lap with colostomy. Surgeon consulted -ex lap with diverting colostomy scheduled, NG to LIS, NPO, fleet enema Called [facility] GI Dr Paniagua to follow up. Continue Protonix 40 mg IV daily tumor markers ordered No masses or stool felt on rectal exam. Continue IV antibiotics Per daughter, patient does not take fibers or eats fruits vegetables. We will continue to follow up Plan discussed with patient, daughter in which all questions have been answered Case discussed with Dr. Sinclair Plan discussed with: Patient My Orders My Orders Orders - ANAND TIERNEY Procedure Category Date Status Time Afp Serum Tumor Marker LAB 02/04/25 In Process 15:54 Carbohydrate Antigen LAB 02/04/25 In Process 19-9 15:54 Ca 125 (Serial) LAB 02/04/25 In Process 15:54 ANAND TIERNEY Feb 05, 2025 14:45
--- NOTE | 2025-02-05 16:17 | DVHPNRES ---
Progress Note Date Seen: Feb 05, 2025 Resident Creating Document: DIDIER HENRIQUEZ RESIDENT Medical Necessity Reason Pt with a Central, PICC or Fol: No Subjective Review of Systems Patient is an 84-year-old female with past medical history of hypertension, constipation, diverticulitis, who presented to the hospital chief complaint of intractable lower abdominal pain. Patient denies any nausea, vomiting, diarrhea. patient states that she has been constipated since 5 days and has not had a bowel movement. Complains of lower abdominal pain in the hypogastrium, left and right inguinal compartments which has been there for the last 2 weeks but has been progressively getting worse. Patient states that she has been having small hard pellets of stool since 2 weeks. Patient states that she has been taking magnesium citrate but has not been taking it regularly. as per daughter patient was recently admitted to [facility] a month ago and was diagnosed with diverticulitis. Patient also reports having sigmoidoscopy every 6 months at [facility] and the latest colonoscopy 1 year ago which was in October 2024 that was negative for malignancy or masses. Past medical history: hypertension, constipation, diverticulitis Surgical history: Appendectomy Social history: Lives with the daughter and denies smoking, alcohol, drug use Home medications: Valsartan 160 mg, carvedilol 6.25 b.i.d., pantoprazole 40 b.i.d., stool softeners and laxatives 02/02/2025: Patient seen at bedside. Patient today has not had a bowel movement. Last bowel movement was 5 days ago. Patient is given MiraLAX, lactulose, GI consulted. 02/03/2025: Patient seen at bedside. Patient today complained of One episode of vomiting overnight, nausea, abdominal pain on palpation. Abdomen is more distended. Patient still did not have a bowel movement. Fleet enema was given, patient still did not have a bowel movement. KUB ordered, shows nonobstructive bowel gas pattern. Large stool burden. Psyllium powder given. GI on board. 02/04/25: patient seen at bedside. Patient today complained of abdominal distention, abdominal pain nausea, vomiting. surgery consulted for possible obstruction. Patient kept NPO. NG tube placed with intermittent low suction. CT abdomen done showed Persistent focal luminal narrowing at the rectosigmoid junction that is concerning for a colon mass, suboptimally evaluated in the absence of enteric contrast. There is a 3.5 cm lobulated hypoenhancing region in the right liver that is concerning for metastatic disease. Moderate to severe distention of the entire colon with stool and gas. Diffuse thickening of the distal sigmoid and the rectum concerning for colitis. 02/05/25: Patient seen at bedside. patient today is connected to NG tube with low intermittent suction and patient feels better and is not distended, bloated. patient presents to undergo exploratory laparotomy. Patient and daughter explained about surgery and risks and benefits, patient and daughter also updated on possible cancer, rectal mass, Mets to the liver. Patient denies any bowel movement or passing of gas. Objective vital signs Vital Sign Date Time Temp Pulse Resp B/P (MAP) Pulse Ox O2 Delivery O2 Flow Rate FiO2 02/05/25 13:00 98.2 87 14 160/78 (105) 91 98.2 02/05/25 07:50 Room Air* 0 21 Total Intake and Output 02/04/25 02/04/25 02/05/25 15:00 23:00 07:00 Intake Total 980 ml 0 ml 0 ml Balance 980 ml 0 ml 0 ml medications Current Medications Medications Dose Ordered Sig/Juan Route Start Time Stop Time Status Last Admin Dose Admin Sennosides 17.2 mg HS PO 02/01/25 22:00 02/02/25 20:56 17.2 MG Ceftriaxone Sodium 50 ml @ 100 mls/hr DAILY@09 IV 02/02/25 09:00 02/05/25 09:51 100 MLS/HR Metronidazole 100 ml @ 100 mls/hr Q8HR IV 02/01/25 22:00 02/05/25 14:17 100 MLS/HR Acetaminophen 650 mg Q6HP PRN PO 02/01/25 16:15 02/04/25 06:12 650 MG Ibuprofen 400 mg Q8HP PRN PO 02/01/25 16:15 02/03/25 15:39 400 MG Valsartan 80 mg DAILY PO 02/02/25 10:00 02/03/25 15:40 80 MG Docusate Sodium 100 mg BID PO 02/02/25 22:00 02/02/25 20:56 100 MG Lactulose 30 ml BID PO 02/02/25 22:00 02/03/25 21:41 30 ML Ondansetron HCl 4 mg Q6HPRN PRN IV 02/03/25 15:15 02/04/25 06:11 4 MG Pantoprazole Sodium 40 mg DAILY IV 02/05/25 10:00 02/05/25 09:51 40 MG Sodium Chloride 1,000 ml @ 80 mls/hr [id number] IV 02/05/25 09:15 02/05/25 09:15 80 MLS/HR Examination General: Patient alert and oriented in person, place and time. Patient following commands. HEENT: Normocephalic, atraumatic, moist mucous membranes Respiratory/pulmonary: Clear lungs bilaterally, vesicular murmurs present in almost all lung s[place]am[place], no associated crackles or wheezes. Cardiovascular: Normal heart sounds S1 and S2 with no associated murmurs Abdomen: Abdomen distended, Hypoactive bowel sounds. Extremities: There is no peripheral edema present at the lower extremities. Peripheral Pulses: 3+ Radial (R). 3+ Radial (L). 3+ Dorsalis pedis (R). 3+ Dorsalis pedis(L) Skin: No rashes or pruritus, there is no sacral edema present at this time. Neurological: Intact cranial nerves with no focal neurologic deficits laboratory and microbiology Laboratory Tests 02/05/25 05:40 Test 02/05/25 05:40 Range/Units Serum Glucose 121 H 74-106 mg/dL Microbiology Date/Time Source Procedure Growth Status 02/01/25 17:27 Nose MRSA Screen - Final Complete Problem List/Assessment/Plan Problem List/Assessment/Plan Acute intractable abdominal pain Severe constipation Sigmoid diverticulitis Possible stricture/mass in the sigmoid colon Colon Mass Cholelithiasis H/o GERD - clear liquid diet - IV fluids - IV antibiotics ceftriaxone and metronidazole - magnesium citrate, daily MiraLax and senna - patient reports to have a colonoscopy about a year ago with a gastro group, last sigmoidoscopy in October 2024 at [facility] and as reported by daughter was normal - GI consulted. - gallbladder ultrasound showed Cholelithiasis. Sonographic Haq's sign is present. - KUB ordered, showed nonobstructive bowel gas pattern. Large stool burden. - patient might need enema - MiraLax - lactulose - suppository - Fleet enema - psyllium powder 02/04/2025: - surgery consulted for possible obstruction - surgeon kept patient NPO and NG tube with low intermittent suction - CT abdomen done showed Persistent focal luminal narrowing at the rectosigmoid junction that is concerning for a colon mass, suboptimally evaluated in the absence of enteric contrast. There is a 3.5 cm lobulated hypoenhancing region in the right liver that is concerning for metastatic disease. Moderate to severe distention of the entire colon with stool and gas. Diffuse thickening of the distal sigmoid and the rectum concerning for colitis. - ordered tumor markers - GI to possibly do colonoscopy - gallbladder ultrasound showed Acute cholecystitis. 02/05/2025: Patient is to get exploratory laparotomy. PUD prophylaxis: Protonix Goals of care addressed with the patient for more than 27 minutes: Full code status Case discussed with Dr. Jacobsen, patient and nurse Plan discussed with: Patient, Daughter My Orders My Orders Orders - DIDIER HENRIQUEZ Procedure Category Date Status Time Sodium Chloride 0.9% PHA 02/05/25 In Process 09:15 Date of Service: Feb 05, 2025 Billing Provider: MADIE JACOBSEN MD Common Visit Codes: [id number] INP/OBS CARE(HIGH) DIDIER HENRIQUEZ Feb 05, 2025 16:17 MADIE JACOBSEN MD Feb 05, 2025 20:03
[2025-02-05] MEDS ORDERED: fentaNYL CITRATE 100 MCG/2 ML VL ONE (16:38)
[2025-02-05] MEDS ORDERED: PROPOFOL 10 MG/ML 20 ML IV ONE (16:38)
[2025-02-05] MEDS ORDERED: SUCCINYLCHOLINE CHLORIDE 20 MG/ML 10ML VIAL IV ONE (16:45)
[2025-02-05] MEDS ORDERED: ROCURONIUM 10MG/ML 10ML VIAL IV ONE (16:46)
[2025-02-05] MEDS ORDERED: ceFAZolin 1GM VL ONE (18:12)
[2025-02-05] MEDS ORDERED: ONDANSETRON HCL 4 MG/2 ML VIAL ONE (18:31)
[2025-02-05] MEDS ORDERED: SUGAMMADEX 200mg/2ml Vial (100MG/ML) IV ONE (19:20)
[2025-02-05] MEDS ORDERED: MEPERIDINE HCL (25 MG/ML) 1ML VIAL ONE (19:22)
--- NOTE | 2025-02-05 19:35 | DVHOP2 ---
Operative Report - 2 Report Details Date: 02/05/25 Preop Diagnosis: 1. 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 Same Surgeon: Jayme Mclain MD President Ceo & Founder: None Anesthesiologist: Dr. Acosta Anesthesia: General Consent: The surgery and its risks including but not limited to infection, bleeding requiring possible blood transfusion with the risk of hepatitis or HIV infection, possible perioperative [place] or stroke were explained to the patient and her daughter. All questions were answered to their satisfaction. They expressed verbal understanding and wished to proceed with the surgery. Complications: None Estimated Blood Loss: 50 mL Fluids: 500 mL Name of Procedure Performed Exploratory laparotomy with diverting loop colostomy Procedure Details Procedure Details: After induction of general anesthesia, a Davis catheter was placed by the OR nursing staff. Patient's abdomen was then prepped and draped in standard surgical fashion. A midline incision was made incision was taken through the abdominal wall down to the fascia which was opened in midline. Peritoneum was divided gaining access to the intra-abdominal cavity. There was diffuse distention of the colon with somewhat decompressed small intestine. The liver was then palpated I do not feel any obvious lesions. The tip of the NG tube was in good position in the body of the stomach. Palpation of the pelvis revealed a firm fixed mass in the rectosigmoid region causing the obstruction. The sigmoid colon was then mobilized medially by taking down the white line of Toldt up to the proximal colon near the splenic flexure. This mobilized the sigmoid colon enough for a loop colostomy. A small circular incision was made in the left lower quadrant. Incision extended through the soft tissue and a cruciate incision was made of the fascia big enough to fit 3-0 my fingers easily. The sigmoid colon was easily placed through this opening without tension. Midline fascia was then closed using running looped 0 PDS sutures. Surgical site was irrigated and skin incision was then closed using arvind. Attention was then turned towards the left lower quadrant opening for the colostomy. The loop of the sigmoid colon and the anti mesenteric surface was then opened about an inch releasing some of the pressure air within the lumen. The mucosa appeared viable. The loop colostomy was then matured by securing the edge of the colonic wall to the edge of the skin using 2-0 and 3-0 Vicryl sutures. There was wide opening of the proximal and distal portion without narrowing at the fascial level. Colostomy appliance was then applied. The surgical site was cleaned and dried and dressing was applied. Sponge, needle, instrument count at the end of the case were reported to be correct by the nursing staff. The patient tolerated procedure well and was awakened, extubated and transferred to recovery in stable condition. Specimen: None Condition Stable Disposition Still a Patient JAYME MCLAIN MD Feb 05, 2025 19:34
[2025-02-05] MEDS ORDERED: ONDANSETRON HCL 4 MG/2 ML VIAL IV PRN (19:45)
[2025-02-05] MEDS ORDERED: MEPERIDINE HCL (25 MG/ML) 1ML VIAL IV PRN (19:45)
[2025-02-05] MEDS ORDERED: HYDROmorphone HCL 2 MG/ML VL/or syr IV PRN (19:45)
[2025-02-05] MEDS: ACETAMINOPHEN IV 1000 MG/100ML (10MG/ML) IV PRN (20:10)
[2025-02-05] MEDS: HYDROmorphone HCL 2 MG/ML VL/or syr IV PRN (21:10)
[2025-02-06] VITALS (7 sets, daily range): BP systolic 140–165; BP diastolic 68–80; PULSE 95–116; RESP 16–19; TEMP 97.3–99.5; O2SAT 94–98
[2025-02-06 06:03] LABS: Hematocrit 28.3 % (36.0-46.0); Hemoglobin 9.5 g/dL (12.2-16.2); Mean Corpuscular Hemoglobin 31.5 pg (28.0-32.0); Mean Corpuscular Volume 94.0 fL (80.0-100.0); Nucleated Red Blood Cells % 0.0 %
[2025-02-06 06:23] LABS: Potassium 4.0 mmol/L (3.5-5.1); Sodium 143 mmol/L (136-145)
[2025-02-06 06:24] LABS: Anion Gap 7 (5-15); Carbon Dioxide 29 mmol/L (20-31)
[2025-02-06 06:25] LABS: Calcium 7.9 mg/dL (8.7-10.4); Chloride 107 mmol/L (98-107)
[2025-02-06 06:29] LABS: BUN/Creatinine Ratio 27.3 (10.0-20.0); Blood Urea Nitrogen 15 mg/dL (9-23)
[2025-02-06 06:42] LABS: Glucose 120 mg/dL (74-106)
[2025-02-06] MEDS: hydrALAZINE HCL 20 MG/ML VL IV PRN (09:53)
--- NOTE | 2025-02-06 11:17 | DVHPN2 ---
Progress Note - Dictate Date Seen: Feb 06, 2025 Medical Necessity Reason Pt with a Central, PICC or Fol: No Subjective E: no major events o/n. c/o incisional pain but tolerable. vital signs Vital Sign Date Time Temp Pulse Resp B/P (MAP) Pulse Ox O2 Delivery O2 Flow Rate FiO2 02/06/25 09:53 151/75 02/06/25 09:00 98.6 106 18 96 98.6 02/06/25 08:08 Nasal Cannula* 1 24 Total Intake and Output 02/05/25 02/05/25 02/06/25 15:00 23:00 07:00 Intake Total 50 ml 100 ml 1060 ml Balance 50 ml 100 ml 1060 ml medications Current Medications Medications Dose Ordered Sig/Juan Route Start Time Stop Time Status Last Admin Dose Admin Ceftriaxone Sodium 50 ml @ 100 mls/hr DAILY@09 IV 02/02/25 09:00 02/06/25 08:26 100 MLS/HR Metronidazole 100 ml @ 100 mls/hr Q8HR IV 02/01/25 22:00 02/06/25 05:22 100 MLS/HR Acetaminophen 650 mg Q6HP PRN PO 02/01/25 16:15 02/04/25 06:12 650 MG Ibuprofen 400 mg Q8HP PRN PO 02/01/25 16:15 02/03/25 15:39 400 MG Valsartan 80 mg DAILY PO 02/02/25 10:00 02/03/25 15:40 80 MG Ondansetron HCl 4 mg Q6HPRN PRN IV 02/03/25 15:15 02/04/25 06:11 4 MG Pantoprazole Sodium 40 mg DAILY IV 02/05/25 10:00 02/06/25 08:19 40 MG Sodium Chloride 1,000 ml @ 80 mls/hr [id number] IV 02/05/25 09:15 02/06/25 09:52 80 MLS/HR Hydralazine HCl 10 mg Q6HP PRN IV 02/05/25 20:30 02/06/25 09:53 10 MG Hydromorphone HCl 0.5 mg Q4HPRN PRN IV 02/05/25 21:00 02/06/25 08:25 0.5 MG objective GEN: NAD ABD: surgical dressing intact. colostomy with stool output. laboratory and microbiology Laboratory Tests 02/06/25 05:31 Test 02/06/25 05:31 Range/Units Serum Glucose 120 H 74-106 mg/dL Assessment/Plan A: 1. s/p ex lap with loop colostomy for high grade rectosigmoid obstruction likely from malignancy POD #1 P: 1. cont curr tx 2. TPN 3. IR bx of liver lesion on Sat Plan discussed with: Patient, Daughter DAVID FRANCEYonatan Coughlin MD Feb 06, 2025 11:17
[2025-02-06] MEDS ORDERED: DEXTROSE (50%) 50ML SYRG IV SCH (11:45)
[2025-02-06] MEDS ORDERED: TPN PER PHARMACY 0 ML IV SCH (11:45)
[2025-02-06] MEDS: InsuLIN REG 1unit/0.01ml Soln (100units/ml) SC SCH (12:00)
[2025-02-06 12:24] LABS: Magnesium 2.2 mg/dL (1.6-2.6)
[2025-02-06 12:28] LABS: Albumin 3.0 g/dL (3.2-4.8)
[2025-02-06] MEDS: ACCU-CHEK COMFORT CURVE STRIP VI SCH (13:05)
--- NOTE | 2025-02-06 15:40 | DVHPNRES ---
Progress Note Date Seen: Feb 06, 2025 Resident Creating Document: MADIE JACOBSEN MD Medical Necessity Reason Pt with a Central, PICC or Fol: No Subjective Review of Systems Patient is an 84-year-old female with past medical history of hypertension, constipation, diverticulitis, who presented to the hospital chief complaint of intractable lower abdominal pain. Patient denies any nausea, vomiting, diarrhea. patient states that she has been constipated since 5 days and has not had a bowel movement. Complains of lower abdominal pain in the hypogastrium, left and right inguinal compartments which has been there for the last 2 weeks but has been progressively getting worse. Patient states that she has been having small hard pellets of stool since 2 weeks. Patient states that she has been taking magnesium citrate but has not been taking it regularly. as per daughter patient was recently admitted to [facility] a month ago and was diagnosed with diverticulitis. Patient also reports having sigmoidoscopy every 6 months at [facility] and the latest colonoscopy 1 year ago which was in October 2024 that was negative for malignancy or masses. Past medical history: hypertension, constipation, diverticulitis Surgical history: Appendectomy Social history: Lives with the daughter and denies smoking, alcohol, drug use Home medications: Valsartan 160 mg, carvedilol 6.25 b.i.d., pantoprazole 40 b.i.d., stool softeners and laxatives 02/02/2025: Patient seen at bedside. Patient today has not had a bowel movement. Last bowel movement was 5 days ago. Patient is given MiraLAX, lactulose, GI consulted. 02/03/2025: Patient seen at bedside. Patient today complained of One episode of vomiting overnight, nausea, abdominal pain on palpation. Abdomen is more distended. Patient still did not have a bowel movement. Fleet enema was given, patient still did not have a bowel movement. KUB ordered, shows nonobstructive bowel gas pattern. Large stool burden. Psyllium powder given. GI on board. 02/04/25: patient seen at bedside. Patient today complained of abdominal distention, abdominal pain nausea, vomiting. surgery consulted for possible obstruction. Patient kept NPO. NG tube placed with intermittent low suction. CT abdomen done showed Persistent focal luminal narrowing at the rectosigmoid junction that is concerning for a colon mass, suboptimally evaluated in the absence of enteric contrast. There is a 3.5 cm lobulated hypoenhancing region in the right liver that is concerning for metastatic disease. Moderate to severe distention of the entire colon with stool and gas. Diffuse thickening of the distal sigmoid and the rectum concerning for colitis. 02/05/25: Patient seen at bedside. patient today is connected to NG tube with low intermittent suction and patient feels better and is not distended, bloated. patient presents to undergo exploratory laparotomy. Patient and daughter explained about surgery and risks and benefits, patient and daughter also updated on possible cancer, rectal mass, Mets to the liver. Patient denies any bowel movement or passing of gas. 02/06/2025: Patient seen at bedside. Patient today has Colostomy with stool present in bag, patient started on PPN, we will be started on TPN tomorrow. Patient is on 1 L oxygen, radiology to do liver biopsy on Saturday. Obtain Records from [facility]. patient does complain of pain with inspiration. CA 19 -19 antigen elevated. Patient and family updated on status and answered all questions. Objective vital signs Vital Sign Date Time Temp Pulse Resp B/P (MAP) Pulse Ox O2 Delivery O2 Flow Rate FiO2 02/06/25 14:53 105 18 142/68 02/06/25 13:00 98.4 94 98.4 02/06/25 08:08 Nasal Cannula* 1 24 Total Intake and Output 02/05/25 02/05/25 02/06/25 15:00 23:00 07:00 Intake Total 50 ml 100 ml 1060 ml Balance 50 ml 100 ml 1060 ml medications Current Medications Medications Dose Ordered Sig/Juan Route Start Time Stop Time Status Last Admin Dose Admin Ceftriaxone Sodium 50 ml @ 100 mls/hr DAILY@09 IV 02/02/25 09:00 02/06/25 08:26 100 MLS/HR Metronidazole 100 ml @ 100 mls/hr Q8HR IV 02/01/25 22:00 02/06/25 13:07 100 MLS/HR Acetaminophen 650 mg Q6HP PRN PO 02/01/25 16:15 02/04/25 06:12 650 MG Ibuprofen 400 mg Q8HP PRN PO 02/01/25 16:15 02/03/25 15:39 400 MG Valsartan 80 mg DAILY PO 02/02/25 10:00 02/03/25 15:40 80 MG Ondansetron HCl 4 mg Q6HPRN PRN IV 02/03/25 15:15 02/04/25 06:11 4 MG Pantoprazole Sodium 40 mg DAILY IV 02/05/25 10:00 02/06/25 08:19 40 MG Sodium Chloride 1,000 ml @ 80 mls/hr [id number] IV 02/05/25 09:15 02/06/25 09:52 80 MLS/HR Hydralazine HCl 10 mg Q6HP PRN IV 02/05/25 20:30 02/06/25 09:53 10 MG Hydromorphone HCl 0.5 mg Q4HPRN PRN IV 02/05/25 21:00 02/06/25 14:23 0.5 MG Amino Acids 0 ml @ 0 mls/hr PER PHARMACY IV 02/06/25 11:45 Cancel Diagnostic Test (Pha) 1 strip Q6HR 02/06/25 12:00 02/06/25 13:05 1 STRIP Insulin Human Regular FOLLOW SLIDING SCALE Q6HR SC 02/06/25 12:00 Dextrose 50 ml UD IV 02/06/25 11:45 Amino Acids/ Electrolytes/ Dextrose 1,000 ml @ 41 mls/hr DAILY@2200 IV 02/06/25 22:00 Cancel Amino Acids 0 ml @ 0 mls/hr PER PHARMACY IV 02/06/25 22:00 Fat Emulsion Intravenous 50 ml/ Calcium Gluconate 2.3 meq/Magnesium Sulfate 6 meq/ Multivitamins 10 ml/Chromium/ Copper/Manganese/ Zinc 1 ml/Amino Acids/Dextrose/ Purified Water 1,317.4462 ml @ 55 mls/hr [id number] IV 02/06/25 22:00 02/07/25 21:59 Examination General: Patient alert and oriented in person, place and time. Patient following commands. HEENT: Normocephalic, atraumatic, moist mucous membranes Respiratory/pulmonary: Clear lungs bilaterally, vesicular murmurs present in almost all lung santamaria, no associated crackles or wheezes. Cardiovascular: Normal heart sounds S1 and S2 with no associated murmurs Abdomen: Abdomen distended, Hypoactive bowel sounds. Incision covered by dressing on abdomen. colostomy bag showing stool Extremities: There is no peripheral edema present at the lower extremities. Peripheral Pulses: 3+ Radial (R). 3+ Radial (L). 3+ Dorsalis pedis (R). 3+ Dorsalis pedis(L) Skin: No rashes or pruritus, there is no sacral edema present at this time. Neurological: Intact cranial nerves with no focal neurologic deficits laboratory and microbiology Laboratory Tests 02/06/25 05:31 Test 02/06/25 05:31 Range/Units Serum Glucose 120 H 74-106 mg/dL Microbiology Date/Time Source Procedure Growth Status 02/01/25 17:27 Nose MRSA Screen - Final Complete Problem List/Assessment/Plan Problem List/Assessment/Plan Acute intractable abdominal pain Severe constipation Sigmoid diverticulitis Possible stricture/mass in the sigmoid colon Colon Mass Cholelithiasis H/o GERD - clear liquid diet - IV fluids - IV antibiotics ceftriaxone and metronidazole - magnesium citrate, daily MiraLax and senna - patient reports to have a colonoscopy about a year ago with a gastro group, last sigmoidoscopy in October 2024 at [facility] and as reported by daughter was normal - GI consulted. - gallbladder ultrasound showed Cholelithiasis. Sonographic Haq's sign is present. - KUB ordered, showed nonobstructive bowel gas pattern. Large stool burden. - patient might need enema - MiraLax - lactulose - suppository - Fleet enema - psyllium powder 02/04/2025: - surgery consulted for possible obstruction - surgeon kept patient NPO and NG tube with low intermittent suction - CT abdomen done showed Persistent focal luminal narrowing at the rectosigmoid junction that is concerning for a colon mass, suboptimally evaluated in the absence of enteric contrast. There is a 3.5 cm lobulated hypoenhancing region in the right liver that is concerning for metastatic disease. Moderate to severe distention of the entire colon with stool and gas. Diffuse thickening of the distal sigmoid and the rectum concerning for colitis. - ordered tumor markers - GI to possibly do colonoscopy - gallbladder ultrasound showed Acute cholecystitis. 02/05/2025: Patient is to get exploratory laparotomy. PUD prophylaxis: Protonix Goals of care addressed with the patient for more than 27 minutes: Full code status Case discussed with Dr. Jacobsen, patient and nurse Plan discussed with: Patient, Daughter My Orders My Orders Orders - DIDIER HENRIQUEZ RESIDENT Procedure Category Date Status Time Obtain Mr From Other ORDERS 02/05/25 Transmitted Facility [id number] Date of Service: Feb 06, 2025 Billing Provider: MADIE JACOBSEN MD Common Visit Codes: [id number] INP/OBS CARE(HIGH) DIDIER HENRIQUEZ RESIDENT Feb 06, 2025 15:40 MADIE JACOBSEN MD Feb 06, 2025 22:16
[2025-02-06] MEDS: MORPHINE SULFATE INJ 2 MG/ml SYRG IV ONE (16:16)
[2025-02-06] MEDS: PPN PER PHARMACY IV NR (21:21)
[2025-02-06] MEDS ORDERED: PPN PER PHARMACY 0 ML IV SCH (22:00)
[2025-02-06] MEDS ORDERED: AMINO ACID INFUSION IN D10W 1,000 ML IV SCH (22:00)
[2025-02-07 01:00] VITALS: BP 160/78; PULSE 99; RESP 18; TEMP 97.6; O2SAT 97
[2025-02-07 05:00] VITALS: BP 139/62; PULSE 116; RESP 16; TEMP 98.2; O2SAT 96
[2025-02-07 05:41] LABS: Hematocrit 32.8 % (36.0-46.0); Hemoglobin 11.0 g/dL (12.2-16.2); Mean Corpuscular Hemoglobin 31.4 pg (28.0-32.0); Mean Corpuscular Volume 93.8 fL (80.0-100.0); Nucleated Red Blood Cells % 0.1 %
[2025-02-07 05:55] LABS: Alanine Aminotransferase 14 U/L (7-40); Albumin 3.2 g/dL (3.2-4.8); Alkaline Phosphatase 68 U/L (46-116); Anion Gap 7 (5-15); BUN/Creatinine Ratio 32.6 (10.0-20.0); Bilirubin, Total 0.4 mg/dL (0.2-1.0); Blood Urea Nitrogen 15 mg/dL (9-23); Carbon Dioxide 26 mmol/L (20-31); Chloride 105 mmol/L (98-107); Magnesium 2.4 mg/dL (1.6-2.6); Sodium 138 mmol/L (136-145)
[2025-02-07 06:00] LABS: Calcium 8.1 mg/dL (8.7-10.4); Glucose 150 mg/dL (74-106); Potassium 3.4 mmol/L (3.5-5.1); Total Protein 5.7 g/dL (5.7-8.2)
[2025-02-07 06:49] LABS: Triglycerides 70 mg/dL (< 150)
[2025-02-07 08:49] VITALS: BP 122/62; PULSE 128; RESP 19; TEMP 98.7; O2SAT 96
[2025-02-07] MEDS: POTASSIUM CHL 20MEQ/100ML 100 ML IV ONE (09:14)
[2025-02-07] MEDS ORDERED: POTASSIUM PHOSPHATE 44 MEQ in D5W 5% 250 ML IV ONE (10:30)
[2025-02-07 13:00] VITALS: BP 134/66; PULSE 107; RESP 19; TEMP 99.5; O2SAT 98
--- NOTE | 2025-02-07 13:47 | DVHPN2 ---
Progress Note - Dictate Date Seen: Feb 07, 2025 Medical Necessity Reason Pt with a Central, PICC or Fol: No Subjective E: no major events o/n. c/o incisional pain but tolerable. vital signs Vital Sign Date Time Temp Pulse Resp B/P (MAP) Pulse Ox O2 Delivery O2 Flow Rate FiO2 02/07/25 12:16 110 18 141/62 02/07/25 08:49 98.7 96 98.7 02/07/25 07:32 Nasal Cannula* 1 24 Total Intake and Output 02/06/25 02/06/25 02/07/25 15:00 23:00 07:00 Intake Total 150 ml 400 ml 0 ml Output Total 815 ml 400 ml Balance 150 ml -415 ml -400 ml medications Current Medications Medications Dose Ordered Sig/Juan Route Start Time Stop Time Status Last Admin Dose Admin Ceftriaxone Sodium 50 ml @ 100 mls/hr DAILY@09 IV 02/02/25 09:00 02/07/25 10:02 100 MLS/HR Metronidazole 100 ml @ 100 mls/hr Q8HR IV 02/01/25 22:00 02/07/25 05:26 100 MLS/HR Acetaminophen 650 mg Q6HP PRN PO 02/01/25 16:15 02/04/25 06:12 650 MG Ibuprofen 400 mg Q8HP PRN PO 02/01/25 16:15 02/03/25 15:39 400 MG Valsartan 80 mg DAILY PO 02/02/25 10:00 02/03/25 15:40 80 MG Ondansetron HCl 4 mg Q6HPRN PRN IV 02/03/25 15:15 02/04/25 06:11 4 MG Pantoprazole Sodium 40 mg DAILY IV 02/05/25 10:00 02/07/25 09:58 40 MG Sodium Chloride 1,000 ml @ 80 mls/hr [id number] IV 02/05/25 09:15 02/07/25 11:51 80 MLS/HR Hydralazine HCl 10 mg Q6HP PRN IV 02/05/25 20:30 02/07/25 03:44 10 MG Hydromorphone HCl 0.5 mg Q4HPRN PRN IV 02/05/25 21:00 02/07/25 11:46 0.5 MG Amino Acids 0 ml @ 0 mls/hr PER PHARMACY IV 02/06/25 11:45 Cancel Diagnostic Test (Pha) 1 strip Q6HR 02/06/25 12:00 02/07/25 11:31 1 STRIP Insulin Human Regular FOLLOW SLIDING SCALE Q6HR SC 02/06/25 12:00 02/07/25 11:43 4 UNITS Dextrose 50 ml UD IV 02/06/25 11:45 Amino Acids/ Electrolytes/ Dextrose 1,000 ml @ 41 mls/hr DAILY@2200 IV 02/06/25 22:00 Cancel Amino Acids 0 ml @ 0 mls/hr PER PHARMACY IV 02/06/25 22:00 Fat Emulsion Intravenous 50 ml/ Calcium Gluconate 2.3 meq/Magnesium Sulfate 6 meq/ Multivitamins 10 ml/Chromium/ Copper/Manganese/ Zinc 1 ml/Amino Acids/Dextrose/ Purified Water 1,317.4462 ml @ 55 mls/hr [id number] IV 02/06/25 22:00 02/07/25 21:59 02/06/25 21:21 55 MLS/HR Fat Emulsion Intravenous 100 ml/Sodium Chloride 20 meq/ Sodium Phosphate 10 meq/Potassium Phosphate 20 meq/ Calcium Gluconate 4.65 meq/ Magnesium Sulfate 4 meq/ Multivitamins 10 ml/Chromium/ Copper/Manganese/ Zinc 1 ml/Amino Acids/Dextrose/ Purified Water 1,484.0455 ml @ 62 mls/hr [id number] IV 02/07/25 22:00 02/08/25 21:59 Potassium Phosphate 26.4 meq/Sodium Chloride 106 ml @ 17.667 mls/ hr Q6H IV 02/07/25 11:00 02/07/25 22:59 objective GEN: NAD ABD: surgical incision clean and dry. NGT scant output. colostomy with stool output. laboratory and microbiology Laboratory Tests 02/07/25 04:52 Test 02/07/25 04:52 Range/Units Serum Glucose 150 H 74-106 mg/dL Assessment/Plan A: 1. s/p ex lap with loop colostomy for high grade rectosigmoid obstruction likely from malignancy POD #2 P: 1. cont curr tx 2. IR bx of liver lesion on Mon 3. PT eval. Plan discussed with: Patient, Daughter NARESH FRANCE Feb 07, 2025 13:47
[2025-02-07] MEDS: POTASSIUM PHOSPHATE 26.4 MEQ in SODIUM CHL 0.9% 100 ML IV SCH (13:51)
[2025-02-07] MEDS: PIPERACILLIN-TAZOB 3.375GM 100 ML IV SCH (14:48)
--- NOTE | 2025-02-07 15:55 | DVH ---
CHEST RADIOGRAPH Indication: NGT placement Technique: Single frontal view of the chest was obtained COMPARISON: XY CHEST PORTABLE on DOS: 02/04/25 FINDINGS: Lines and Tubes: Enteric catheter in satisfactory position. Lungs: Increased interstitial prominence. This may represent pulmonary vascular congestion and/or viral pneumonia. Pleura: No effusion. No pneumothorax. Cardiomediastinal contours: Unremarkable Bones: Unremarkable IMPRESSION: Enteric catheter in satisfactory position.
[2025-02-07 16:47] VITALS: BP 158/82; PULSE 102; RESP 18; TEMP 98.4; O2SAT 90
--- NOTE | 2025-02-07 17:03 | DVHPNRES ---
Progress Note Date Seen: Feb 07, 2025 Resident Creating Document: CONCHA ROSE RESIDENT Medical Necessity Reason Pt with a Central, PICC or Fol: No Subjective Review of Systems Patient is an 84-year-old female with past medical history of hypertension, constipation, diverticulitis, who presented to the hospital chief complaint of intractable lower abdominal pain. Patient denies any nausea, vomiting, diarrhea. patient states that she has been constipated since 5 days and has not had a bowel movement. Complains of lower abdominal pain in the hypogastrium, left and right inguinal compartments which has been there for the last 2 weeks but has been progressively getting worse. Patient states that she has been having small hard pellets of stool since 2 weeks. Patient states that she has been taking magnesium citrate but has not been taking it regularly. as per daughter patient was recently admitted to [facility] a month ago and was diagnosed with diverticulitis. Patient also reports having sigmoidoscopy every 6 months at [facility] and the latest colonoscopy 1 year ago which was in October 2024 that was negative for malignancy or masses. Past medical history: hypertension, constipation, diverticulitis Surgical history: Appendectomy Social history: Lives with the daughter and denies smoking, alcohol, drug use Home medications: Valsartan 160 mg, carvedilol 6.25 b.i.d., pantoprazole 40 b.i.d., stool softeners and laxatives 02/02/2025: Patient seen at bedside. Patient today has not had a bowel movement. Last bowel movement was 5 days ago. Patient is given MiraLAX, lactulose, GI consulted. 02/03/2025: Patient seen at bedside. Patient today complained of One episode of vomiting overnight, nausea, abdominal pain on palpation. Abdomen is more distended. Patient still did not have a bowel movement. Fleet enema was given, patient still did not have a bowel movement. KUB ordered, shows nonobstructive bowel gas pattern. Large stool burden. Psyllium powder given. GI on board. 02/04/25: patient seen at bedside. Patient today complained of abdominal distention, abdominal pain nausea, vomiting. surgery consulted for possible obstruction. Patient kept NPO. NG tube placed with intermittent low suction. CT abdomen done showed Persistent focal luminal narrowing at the rectosigmoid junction that is concerning for a colon mass, suboptimally evaluated in the absence of enteric contrast. There is a 3.5 cm lobulated hypoenhancing region in the right liver that is concerning for metastatic disease. Moderate to severe distention of the entire colon with stool and gas. Diffuse thickening of the distal sigmoid and the rectum concerning for colitis. 02/05/25: Patient seen at bedside. patient today is connected to NG tube with low intermittent suction and patient feels better and is not distended, bloated. patient presents to undergo exploratory laparotomy. Patient and daughter explained about surgery and risks and benefits, patient and daughter also updated on possible cancer, rectal mass, Mets to the liver. Patient denies any bowel movement or passing of gas. 02/06/2025: Patient seen at bedside. Patient today has Colostomy with stool present in bag, patient started on PPN, we will be started on TPN tomorrow. Patient is on 1 L oxygen, radiology to do liver biopsy on Saturday. Obtain Records from [facility]. patient does complain of pain with inspiration. CA 19 -19 antigen elevated. Patient and family updated on status and answered all questions. 02/07/25- the patient was seen and evaluated at bedside. We will continue with the same management. PT request for service will be placed. She has no new complaints. All the patient's and daughter's questions were answered and all concerns were addressed. Patient is morning was 3.4, which was repleted. The patient was started on Lovenox 30 mg sc daily for DVT prophylaxis. IV ceftriaxone and Flagyl were discontinued, patient was started on IV Zosyn. Pending liver biopsy tomorrow morning. Chest x-ray showed enteric catheter in satisfactory position. Objective vital signs Vital Sign Date Time Temp Pulse Resp B/P (MAP) Pulse Ox O2 Delivery O2 Flow Rate FiO2 02/07/25 16:47 98.4 102 18 158/82 (107) 90 98.4 02/07/25 07:32 Nasal Cannula* 1 24 Total Intake and Output 02/06/25 02/06/25 02/07/25 15:00 23:00 07:00 Intake Total 150 ml 400 ml 0 ml Output Total 815 ml 400 ml Balance 150 ml -415 ml -400 ml medications Current Medications Medications Dose Ordered Sig/Juan Route Start Time Stop Time Status Last Admin Dose Admin Acetaminophen 650 mg Q6HP PRN PO 02/01/25 16:15 02/04/25 06:12 650 MG Valsartan 80 mg DAILY PO 02/02/25 10:00 02/03/25 15:40 80 MG Ondansetron HCl 4 mg Q6HPRN PRN IV 02/03/25 15:15 02/04/25 06:11 4 MG Pantoprazole Sodium 40 mg DAILY IV 02/05/25 10:00 02/07/25 09:58 40 MG Amino Acids 0 ml @ 0 mls/hr PER PHARMACY IV 02/06/25 11:45 Cancel Diagnostic Test (Pha) 1 strip Q6HR 02/06/25 12:00 02/07/25 11:31 1 STRIP Insulin Human Regular FOLLOW SLIDING SCALE Q6HR SC 02/06/25 12:00 02/07/25 11:43 4 UNITS Dextrose 50 ml UD IV 02/06/25 11:45 Amino Acids/ Electrolytes/ Dextrose 1,000 ml @ 41 mls/hr DAILY@2200 IV 02/06/25 22:00 Cancel Amino Acids 0 ml @ 0 mls/hr PER PHARMACY IV 02/06/25 22:00 Fat Emulsion Intravenous 50 ml/ Calcium Gluconate 2.3 meq/Magnesium Sulfate 6 meq/ Multivitamins 10 ml/Chromium/ Copper/Manganese/ Zinc 1 ml/Amino Acids/Dextrose/ Purified Water 1,317.4462 ml @ 55 mls/hr [id number] IV 02/06/25 22:00 02/07/25 21:59 02/06/25 21:21 55 MLS/HR Fat Emulsion Intravenous 100 ml/Sodium Chloride 20 meq/ Sodium Phosphate 10 meq/Potassium Phosphate 20 meq/ Calcium Gluconate 4.65 meq/ Magnesium Sulfate 4 meq/ Multivitamins 10 ml/Chromium/ Copper/Manganese/ Zinc 1 ml/Amino Acids/Dextrose/ Purified Water 1,484.0455 ml @ 62 mls/hr [id number] IV 02/07/25 22:00 02/08/25 21:59 Potassium Phosphate 26.4 meq/Sodium Chloride 106 ml @ 17.667 mls/ hr Q6H IV 02/07/25 11:00 02/07/25 22:59 02/07/25 13:51 17.667 MLS/HR Piperacillin Sod/ Tazobactam Sod 100 ml @ 25 mls/hr Q8HR IV 02/07/25 14:00 02/07/25 14:48 25 MLS/HR Enoxaparin Sodium 30 mg DAILY SC 02/08/25 10:00 Ketorolac Tromethamine 15 mg Q6HPRN PRN IV 02/07/25 14:30 02/12/25 14:29 Examination General: Patient alert and oriented in person, place and time. Patient following commands. HEENT: Normocephalic, atraumatic, moist mucous membranes Respiratory/pulmonary: Clear lungs bilaterally, vesicular murmurs present in almost all lung santamaria, no associated crackles or wheezes. Cardiovascular: Normal heart sounds S1 and S2 with no associated murmurs Abdomen: Abdomen distended, Hypoactive bowel sounds. Incision covered by dressing on abdomen. colostomy bag showing stool Extremities: There is no peripheral edema present at the lower extremities. Peripheral Pulses: 3+ Radial (R). 3+ Radial (L). 3+ Dorsalis pedis (R). 3+ Dorsalis pedis(L) Skin: No rashes or pruritus, there is no sacral edema present at this time. 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 - gallbladder ultrasound showed Cholelithiasis. Sonographic Haq's sign is present. - KUB ordered, showed nonobstructive bowel gas pattern. Large stool burden. - patient might need enema - MiraLax - lactulose - suppository - Fleet enema - psyllium powder 02/04/2025: - surgery consulted for possible obstruction - surgeon kept patient NPO and NG tube with low intermittent suction - CT abdomen done showed Persistent focal luminal narrowing at the rectosigmoid junction that is concerning for a colon mass, suboptimally evaluated in the absence of enteric contrast. There is a 3.5 cm lobulated hypoenhancing region in the right liver that is concerning for metastatic disease. Moderate to severe distention of the entire colon with stool and gas. Diffuse thickening of the distal sigmoid and the rectum concerning for colitis. - ordered tumor markers - GI to possibly do colonoscopy - gallbladder ultrasound showed Acute cholecystitis. 02/05/2025: Patient is to get exploratory laparotomy. 02/07/25- -IV ceftriaxone and Flagyl discontinued -started on IV Zosyn -PT eval request placed PUD prophylaxis: Protonix Goals of care addressed with the patient for more than 27 minutes: Full code status Case discussed with Dr. Jacobsen, patient and nurse Plan discussed with: Patient, Daughter Dietary Evaluation Review Comments: TPN Adjustment Recommendation Goal: TPN should meet 75-100% of patients nutritional needs. Current Status: Protein: 112% of needs (exceeds requirement) Energy: 63% of needs (below requirement) Recommendation: Adjust TPN per pharmacy to deliver: Protein: 70-80 g Energy: 8490-0283 kcal Rationale: Current formula oversupplies protein and undersupplies energy. Adjustment will better align with patients estimated needs and prevent unnecessary nitrogen load. Expected Outcomes/Goals: Recovered GI function, Date of Service: Feb 07, 2025 Billing Provider: MADIE JACOBSEN MD Common Visit Codes: [id number] INP/OBS CARE(HIGH) CONCHA ROSE RESIDENT Feb 07, 2025 17:03 MADIE JACOBSEN MD Feb 07, 2025 22:35
[2025-02-07 21:00] VITALS: BP 157/81; PULSE 110; RESP 17; TEMP 98.5; O2SAT 93
--- NOTE | 2025-02-07 22:52 | DVHPN2 ---
Progress Note - Dictate Date Seen: Feb 07, 2025 Medical Necessity Reason Pt with a Central, PICC or Fol: No Subjective Postop day 2. S/P laparotomy with diverting colostomy NG-tube is in place, patient is sleeping comfortably One bowel movement recorded vital signs Vital Sign Date Time Temp Pulse Resp B/P (MAP) Pulse Ox O2 Delivery O2 Flow Rate FiO2 02/07/25 21:00 98.5 110 17 157/81 (106) 93 98.5 02/07/25 07:32 Nasal Cannula* 1 24 Total Intake and Output 02/06/25 02/06/25 02/07/25 15:00 23:00 07:00 Intake Total 150 ml 400 ml 0 ml Output Total 815 ml 400 ml Balance 150 ml -415 ml -400 ml medications Current Medications Medications Dose Ordered Sig/Juan Route Start Time Stop Time Status Last Admin Dose Admin Acetaminophen 650 mg Q6HP PRN PO 02/01/25 16:15 02/04/25 06:12 650 MG Valsartan 80 mg DAILY PO 02/02/25 10:00 02/03/25 15:40 80 MG Ondansetron HCl 4 mg Q6HPRN PRN IV 02/03/25 15:15 02/04/25 06:11 4 MG Pantoprazole Sodium 40 mg DAILY IV 02/05/25 10:00 02/07/25 09:58 40 MG Amino Acids 0 ml @ 0 mls/hr PER PHARMACY IV 02/06/25 11:45 Cancel Diagnostic Test (Pha) 1 strip Q6HR 02/06/25 12:00 02/07/25 17:32 1 STRIP Insulin Human Regular FOLLOW SLIDING SCALE Q6HR SC 02/06/25 12:00 02/07/25 17:44 2 UNITS Dextrose 50 ml UD IV 02/06/25 11:45 Amino Acids/ Electrolytes/ Dextrose 1,000 ml @ 41 mls/hr DAILY@2200 IV 02/06/25 22:00 Cancel Amino Acids 0 ml @ 0 mls/hr PER PHARMACY IV 02/06/25 22:00 Fat Emulsion Intravenous 100 ml/Sodium Chloride 20 meq/ Sodium Phosphate 10 meq/Potassium Phosphate 20 meq/ Calcium Gluconate 4.65 meq/ Magnesium Sulfate 4 meq/ Multivitamins 10 ml/Chromium/ Copper/Manganese/ Zinc 1 ml/Amino Acids/Dextrose/ Purified Water 1,222.0555 ml @ 62 mls/hr [id number] IV 02/07/25 22:00 02/08/25 21:59 02/07/25 22:07 62 MLS/HR Potassium Phosphate 26.4 meq/Sodium Chloride 106 ml @ 17.667 mls/ hr Q6H IV 02/07/25 11:00 02/07/25 22:59 02/07/25 18:28 17.667 MLS/HR Piperacillin Sod/ Tazobactam Sod 100 ml @ 25 mls/hr Q8HR IV 02/07/25 14:00 02/07/25 21:18 25 MLS/HR Enoxaparin Sodium 30 mg DAILY SC 02/08/25 10:00 Ketorolac Tromethamine 15 mg Q6HPRN PRN IV 02/07/25 14:30 02/12/25 14:29 objective GEN: NAD ABD: surgical incision clean and dry. NGT scant output. colostomy with stool output. laboratory and microbiology Laboratory Tests 02/07/25 04:52 Test 02/07/25 04:52 Range/Units Serum Glucose 150 H 74-106 mg/dL Problems(with codes): (1) Sigmoid stricture (2) Sigmoid diverticulitis (3) Sigmoid thickening (4) Cholelithiasis (5) Acute diverticulitis Prognosis Plan Start diet once cleared by surgical consult Patient awaiting IR consult for possible biopsy of liver lesion Appears that there was no biopsy was taken intraoperatively Check pathology results CEA level elevated to 10.84 suggestive of sigmoid malignancy PT and supportive care Dietary Evaluation Review Comments: TPN Adjustment Recommendation Goal: TPN should meet 75-100% of patients nutritional needs. Current Status: Protein: 112% of needs (exceeds requirement) Energy: 63% of needs (below requirement) Recommendation: Adjust TPN per pharmacy to deliver: Protein: 70-80 g Energy: 7269-6277 kcal Rationale: Current formula oversupplies protein and undersupplies energy. Adjustment will better align with patients estimated needs and prevent unnecessary nitrogen load. Expected Outcomes/Goals: Recovered GI function, Plan discussed with: Patient SY PAIGE MD Feb 07, 2025 22:52
[2025-02-08 01:00] VITALS: BP 165/75; PULSE 100; RESP 18; TEMP 99.7; O2SAT 94
[2025-02-08 05:00] VITALS: BP 156/68; PULSE 100; RESP 18; TEMP 98.7; O2SAT 93
[2025-02-08 06:12] LABS: Hematocrit 31.4 % (36.0-46.0); Hemoglobin 10.6 g/dL (12.2-16.2); Mean Corpuscular Hemoglobin 31.9 pg (28.0-32.0); Mean Corpuscular Volume 94.2 fL (80.0-100.0); Nucleated Red Blood Cells % 0.2 %
[2025-02-08 06:21] LABS: Alanine Aminotransferase 10 U/L (7-40); Alkaline Phosphatase 61 U/L (46-116); Anion Gap 9 (5-15); BUN/Creatinine Ratio 34.1 (10.0-20.0); Blood Urea Nitrogen 14 mg/dL (9-23); Carbon Dioxide 24 mmol/L (20-31); Chloride 105 mmol/L (98-107); Sodium 138 mmol/L (136-145)
[2025-02-08 06:22] LABS: Bilirubin, Total 0.4 mg/dL (0.2-1.0)
[2025-02-08 06:26] LABS: Magnesium 2.1 mg/dL (1.6-2.6)
[2025-02-08 06:44] LABS: Albumin 2.9 g/dL (3.2-4.8); Calcium 7.8 mg/dL (8.7-10.4); Glucose 131 mg/dL (74-106); Potassium 3.2 mmol/L (3.5-5.1); Total Protein 5.4 g/dL (5.7-8.2)
[2025-02-08] MEDS: ENOXAPARIN SOD 30 MG/0.3 ML SYRINGE SC SCH (08:53)
[2025-02-08 09:00] VITALS: BP 138/68; PULSE 113; RESP 16; TEMP 98.7; O2SAT 94
--- NOTE | 2025-02-08 11:05 | DVHPN2 ---
Progress Note - Dictate Date Seen: Feb 08, 2025 Medical Necessity Reason Pt with a Central, PICC or Fol: No Subjective E: no major events o/n. c/o incisional pain but tolerable. vital signs Vital Sign Date Time Temp Pulse Resp B/P (MAP) Pulse Ox O2 Delivery O2 Flow Rate FiO2 02/08/25 09:00 98.7 113 16 138/68 (91) 94 98.7 02/07/25 20:00 Room Air* 0 21 Total Intake and Output 02/07/25 02/07/25 02/08/25 15:00 23:00 07:00 Intake Total 575 ml 620 ml 100 ml Output Total 650 ml 650 ml Balance 575 ml -30 ml -550 ml medications Current Medications Medications Dose Ordered Sig/Juan Route Start Time Stop Time Status Last Admin Dose Admin Acetaminophen 650 mg Q6HP PRN PO 02/01/25 16:15 02/04/25 06:12 650 MG Valsartan 80 mg DAILY PO 02/02/25 10:00 02/03/25 15:40 80 MG Ondansetron HCl 4 mg Q6HPRN PRN IV 02/03/25 15:15 02/04/25 06:11 4 MG Pantoprazole Sodium 40 mg DAILY IV 02/05/25 10:00 02/08/25 08:52 40 MG Amino Acids 0 ml @ 0 mls/hr PER PHARMACY IV 02/06/25 11:45 Cancel Diagnostic Test (Pha) 1 strip Q6HR 02/06/25 12:00 02/08/25 05:30 1 STRIP Insulin Human Regular FOLLOW SLIDING SCALE Q6HR SC 02/06/25 12:00 02/07/25 17:44 2 UNITS Dextrose 50 ml UD IV 02/06/25 11:45 Amino Acids/ Electrolytes/ Dextrose 1,000 ml @ 41 mls/hr DAILY@2200 IV 02/06/25 22:00 Cancel Amino Acids 0 ml @ 0 mls/hr PER PHARMACY IV 02/06/25 22:00 Fat Emulsion Intravenous 100 ml/Sodium Chloride 20 meq/ Sodium Phosphate 10 meq/Potassium Phosphate 20 meq/ Calcium Gluconate 4.65 meq/ Magnesium Sulfate 4 meq/ Multivitamins 10 ml/Chromium/ Copper/Manganese/ Zinc 1 ml/Amino Acids/Dextrose/ Purified Water 1,484.0455 ml @ 62 mls/hr [id number] IV 02/07/25 22:00 02/08/25 21:59 02/07/25 22:07 62 MLS/HR Piperacillin Sod/ Tazobactam Sod 100 ml @ 25 mls/hr Q8HR IV 02/07/25 14:00 02/08/25 05:36 25 MLS/HR Enoxaparin Sodium 30 mg DAILY SC 02/08/25 10:00 02/08/25 08:53 30 MG Ketorolac Tromethamine 15 mg Q6HPRN PRN IV 02/07/25 14:30 02/12/25 14:29 Fat Emulsion Intravenous 100 ml/Sodium Acetate 20 meq/Potassium Phosphate 22 meq/ Calcium Gluconate 4.65 meq/ Magnesium Sulfate 4 meq/ Multivitamins 10 ml/Chromium/ Copper/Manganese/ Zinc 1 ml/Amino Acids/Dextrose/ Purified Water 1,587 ml @ 66 mls/hr Q24H3M IV 02/08/25 22:00 02/09/25 21:59 objective GEN: NAD ABD: surgical incision clean and dry. NGT scant output. colostomy with stool output. laboratory and microbiology Laboratory Tests 02/08/25 05:05 Test 02/08/25 05:05 Range/Units Serum Glucose 131 H 74-106 mg/dL Assessment/Plan A: 1. 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 DC NGT and start clear liquid diet 2. IR consult for liver lesion Dietary Evaluation Review Comments: TPN Adjustment Recommendation Goal: TPN should meet 75-100% of patients nutritional needs. Current Status: Protein: 112% of needs (exceeds requirement) Energy: 63% of needs (below requirement) Recommendation: Adjust TPN per pharmacy to deliver: Protein: 70-80 g Energy: 0104-0863 kcal Rationale: Current formula oversupplies protein and undersupplies energy. Adjustment will better align with patients estimated needs and prevent unnecessary nitrogen load. Expected Outcomes/Goals: Recovered GI function, Plan discussed with: Patient NARESH FRANCE MD Feb 08, 2025 11:05
[2025-02-08 13:00] VITALS: BP 168/76; PULSE 114; RESP 17; TEMP 98.8; O2SAT 96
[2025-02-08] MEDS: POTASSIUM CHLORIDE 40 MEQ, LIDOCAINE 1% (LOCAL ANESTH.) 4 ML in SODIUM CHL 0.9% 250 ML IV ONE (13:28)
--- NOTE | 2025-02-08 14:48 | DVHPNRES ---
Progress Note Date Seen: Feb 08, 2025 Resident Creating Document: DIDIER HENRIQUEZ RESIDENT Medical Necessity Reason Pt with a Central, PICC or Fol: No Subjective Review of Systems Patient is an 84-year-old female with past medical history of hypertension, constipation, diverticulitis, who presented to the hospital chief complaint of intractable lower abdominal pain. Patient denies any nausea, vomiting, diarrhea. patient states that she has been constipated since 5 days and has not had a bowel movement. Complains of lower abdominal pain in the hypogastrium, left and right inguinal compartments which has been there for the last 2 weeks but has been progressively getting worse. Patient states that she has been having small hard pellets of stool since 2 weeks. Patient states that she has been taking magnesium citrate but has not been taking it regularly. as per daughter patient was recently admitted to [facility] a month ago and was diagnosed with diverticulitis. Patient also reports having sigmoidoscopy every 6 months at [facility] and the latest colonoscopy 1 year ago which was in October 2024 that was negative for malignancy or masses. Past medical history: hypertension, constipation, diverticulitis Surgical history: Appendectomy Social history: Lives with the daughter and denies smoking, alcohol, drug use Home medications: Valsartan 160 mg, carvedilol 6.25 b.i.d., pantoprazole 40 b.i.d., stool softeners and laxatives 02/02/2025: Patient seen at bedside. Patient today has not had a bowel movement. Last bowel movement was 5 days ago. Patient is given MiraLAX, lactulose, GI consulted. 02/03/2025: Patient seen at bedside. Patient today complained of One episode of vomiting overnight, nausea, abdominal pain on palpation. Abdomen is more distended. Patient still did not have a bowel movement. Fleet enema was given, patient still did not have a bowel movement. KUB ordered, shows nonobstructive bowel gas pattern. Large stool burden. Psyllium powder given. GI on board. 02/04/25: patient seen at bedside. Patient today complained of abdominal distention, abdominal pain nausea, vomiting. surgery consulted for possible obstruction. Patient kept NPO. NG tube placed with intermittent low suction. CT abdomen done showed Persistent focal luminal narrowing at the rectosigmoid junction that is concerning for a colon mass, suboptimally evaluated in the absence of enteric contrast. There is a 3.5 cm lobulated hypoenhancing region in the right liver that is concerning for metastatic disease. Moderate to severe distention of the entire colon with stool and gas. Diffuse thickening of the distal sigmoid and the rectum concerning for colitis. 02/05/25: Patient seen at bedside. patient today is connected to NG tube with low intermittent suction and patient feels better and is not distended, bloated. patient presents to undergo exploratory laparotomy. Patient and daughter explained about surgery and risks and benefits, patient and daughter also updated on possible cancer, rectal mass, Mets to the liver. Patient denies any bowel movement or passing of gas. 02/06/2025: Patient seen at bedside. Patient today has Colostomy with stool present in bag, patient started on PPN, we will be started on TPN tomorrow. Patient is on 1 L oxygen, radiology to do liver biopsy on Saturday. Obtain Records from [facility]. patient does complain of pain with inspiration. CA 19 -19 antigen elevated. Patient and family updated on status and answered all questions. 02/07/25- the patient was seen and evaluated at bedside. We will continue with the same management. PT request for service will be placed. She has no new complaints. All the patient's and daughter's questions were answered and all concerns were addressed. Patient is morning was 3.4, which was repleted. The patient was started on Lovenox 30 mg sc daily for DVT prophylaxis. IV ceftriaxone and Flagyl were discontinued, patient was started on IV Zosyn. Pending liver biopsy tomorrow morning. Chest x-ray showed enteric catheter in satisfactory position. 02/08/2025: Patient seen at bedside. discontinued NG tube. Started on clear liquid diet. We will advance as tolerated. Patient on IV Zosyn. WBC count decreased today. IR stated liver biopsy to be done outpatient. Objective vital signs Vital Sign Date Time Temp Pulse Resp B/P (MAP) Pulse Ox O2 Delivery O2 Flow Rate FiO2 02/08/25 09:00 98.7 113 16 138/68 (91) 94 98.7 02/08/25 08:00 Room Air* 0 21 Total Intake and Output 02/07/25 02/07/25 02/08/25 14:59 22:59 06:59 Intake Total 575 ml 620 ml 100 ml Output Total 650 ml 650 ml Balance 575 ml -30 ml -550 ml medications Current Medications Medications Dose Ordered Sig/Juan Route Start Time Stop Time Status Last Admin Dose Admin Acetaminophen 650 mg Q6HP PRN PO 02/01/25 16:15 02/04/25 06:12 650 MG Valsartan 80 mg DAILY PO 02/02/25 10:00 02/03/25 15:40 80 MG Ondansetron HCl 4 mg Q6HPRN PRN IV 02/03/25 15:15 02/04/25 06:11 4 MG Pantoprazole Sodium 40 mg DAILY IV 02/05/25 10:00 02/08/25 08:52 40 MG Amino Acids 0 ml @ 0 mls/hr PER PHARMACY IV 02/06/25 11:45 Cancel Diagnostic Test (Pha) 1 strip Q6HR 02/06/25 12:00 02/08/25 11:22 1 STRIP Insulin Human Regular FOLLOW SLIDING SCALE Q6HR SC 02/06/25 12:00 02/08/25 11:21 2 UNITS Dextrose 50 ml UD IV 02/06/25 11:45 Amino Acids/ Electrolytes/ Dextrose 1,000 ml @ 41 mls/hr DAILY@2200 IV 02/06/25 22:00 Cancel Fat Emulsion Intravenous 100 ml/Sodium Chloride 20 meq/ Sodium Phosphate 10 meq/Potassium Phosphate 20 meq/ Calcium Gluconate 4.65 meq/ Magnesium Sulfate 4 meq/ Multivitamins 10 ml/Chromium/ Copper/Manganese/ Zinc 1 ml/Amino Acids/Dextrose/ Purified Water 1,484.0455 ml @ 62 mls/hr [id number] IV 02/07/25 22:00 02/08/25 21:59 02/07/25 22:07 62 MLS/HR Piperacillin Sod/ Tazobactam Sod 100 ml @ 25 mls/hr Q8HR IV 02/07/25 14:00 02/08/25 14:24 25 MLS/HR Enoxaparin Sodium 30 mg DAILY SC 02/08/25 10:00 02/08/25 08:53 30 MG Ketorolac Tromethamine 15 mg Q6HPRN PRN IV 02/07/25 14:30 02/12/25 14:29 Fat Emulsion Intravenous 100 ml/Sodium Acetate 20 meq/Potassium Phosphate 22 meq/ Calcium Gluconate 4.65 meq/ Magnesium Sulfate 4 meq/ Multivitamins 10 ml/Chromium/ Copper/Manganese/ Zinc 1 ml/Amino Acids/Dextrose/ Purified Water 1,587 ml @ 66 mls/hr Q24H3M IV 02/08/25 22:00 02/09/25 21:59 Cancel Examination General: Patient alert and oriented in person, place and time. Patient following commands. HEENT: Normocephalic, atraumatic, moist mucous membranes Respiratory/pulmonary: Clear lungs bilaterally, vesicular murmurs present in almost all lung santamaria, no associated crackles or wheezes. Cardiovascular: Normal heart sounds S1 and S2 with no associated murmurs Abdomen: Abdomen distended, Hypoactive bowel sounds. Incision covered by dressing on abdomen. colostomy bag showing stool. Extremities: There is no peripheral edema present at the lower extremities. Peripheral Pulses: 3+ Radial (R). 3+ Radial (L). 3+ Dorsalis pedis (R). 3+ Dorsalis pedis(L) Skin: No rashes or pruritus, there is no sacral edema present at this time. Neurological: Intact cranial nerves with no focal neurologic deficits laboratory and microbiology Laboratory Tests 02/08/25 05:05 Test 02/08/25 05:05 Range/Units Serum Glucose 131 H 74-106 mg/dL Microbiology Date/Time Source Procedure Growth Status 02/01/25 17:27 Nose MRSA Screen - Final Complete Problem List/Assessment/Plan Problem List/Assessment/Plan Acute intractable abdominal pain Severe constipation Sigmoid diverticulitis Possible stricture/mass in the sigmoid colon Colon Mass Cholelithiasis H/o GERD - clear liquid diet - IV fluids - IV antibiotics ceftriaxone and metronidazole - magnesium citrate, daily MiraLax and senna - patient reports to have a colonoscopy about a year ago with a gastro group, last sigmoidoscopy in October 2024 at [facility] and as reported by daughter was normal - GI consulted. - gallbladder ultrasound showed Cholelithiasis. Sonographic Haq's sign is present. - KUB ordered, showed nonobstructive bowel gas pattern. Large stool burden. - patient might need enema - MiraLax - lactulose - suppository - Fleet enema - psyllium powder 02/04/2025: - surgery consulted for possible obstruction - surgeon kept patient NPO and NG tube with low intermittent suction - CT abdomen done showed Persistent focal luminal narrowing at the rectosigmoid junction that is concerning for a colon mass, suboptimally evaluated in the absence of enteric contrast. There is a 3.5 cm lobulated hypoenhancing region in the right liver that is concerning for metastatic disease. Moderate to severe distention of the entire colon with stool and gas. Diffuse thickening of the distal sigmoid and the rectum concerning for colitis. - ordered tumor markers - GI to possibly do colonoscopy - gallbladder ultrasound showed Acute cholecystitis. 02/05/2025: Patient is to get exploratory laparotomy. 02/08/2025: Discontinued NG tube, started on clear liquid diet, liver biopsy to be done outpatient. PUD prophylaxis: Protonix Goals of care addressed with the patient for more than 27 minutes: Full code status Case discussed with Dr. Jacobsen, patient and nurse Plan discussed with: Patient Dietary Evaluation Review Comments: TPN Adjustment Recommendation Goal: TPN should meet 75-100% of patients nutritional needs. Current Status: Protein: 112% of needs (exceeds requirement) Energy: 63% of needs (below requirement) Recommendation: Adjust TPN per pharmacy to deliver: Protein: 70-80 g Energy: 3420-6102 kcal Rationale: Current formula oversupplies protein and undersupplies energy. Adjustment will better align with patients estimated needs and prevent unnecessary nitrogen load. Expected Outcomes/Goals: Recovered GI function, Date of Service: Feb 08, 2025 Billing Provider: MADIE JACOBSEN MD Common Visit Codes: [id number] INP/OBS CARE(HIGH) DIDIER HENRIQUEZ RESIDENT Feb 08, 2025 14:48 MADIE JACOBSEN MD Feb 09, 2025 01:39
[2025-02-08 17:00] VITALS: BP 173/80; PULSE 102; RESP 16; TEMP 98.4; O2SAT 95
[2025-02-08] MEDS: SODIUM PHOSPHATES 40 MEQ in D5W 5% 250 ML IV ONE (17:58)
[2025-02-08] MEDS: VALSARTAN 80 MG TAB PO ONE (18:14)
[2025-02-08 21:00] VITALS: BP 161/86; PULSE 91; RESP 18; TEMP 98.9; O2SAT 96
[2025-02-08] MEDS ORDERED: PPN PER PHARMACY IV NR (22:00)
[2025-02-09] VITALS (7 sets, daily range): BP systolic 145–171; BP diastolic 72–86; PULSE 91–111; RESP 16–18; TEMP 98–98.7; O2SAT 95–98
[2025-02-09 07:20] LABS: Hematocrit 29.7 % (36.0-46.0); Hemoglobin 10.3 g/dL (12.2-16.2); Mean Corpuscular Hemoglobin 32.4 pg (28.0-32.0); Mean Corpuscular Volume 93.5 fL (80.0-100.0); Nucleated Red Blood Cells % 0.0 %
[2025-02-09 07:28] LABS: Alkaline Phosphatase 59 U/L (46-116); Anion Gap 9 (5-15); BUN/Creatinine Ratio 20.5 (10.0-20.0); Carbon Dioxide 26 mmol/L (20-31); Glucose 105 mg/dL (74-106); Magnesium 2.2 mg/dL (1.6-2.6); Sodium 143 mmol/L (136-145)
[2025-02-09 07:29] LABS: Bilirubin, Total 0.5 mg/dL (0.2-1.0)
[2025-02-09 07:30] LABS: Alanine Aminotransferase 9 U/L (7-40); Albumin 3.0 g/dL (3.2-4.8); Blood Urea Nitrogen 9 mg/dL (9-23); Calcium 8.0 mg/dL (8.7-10.4); Chloride 108 mmol/L (98-107); Potassium 3.2 mmol/L (3.5-5.1); Total Protein 5.5 g/dL (5.7-8.2)
--- NOTE | 2025-02-09 12:22 | DVHPN2 ---
Progress Note - Surgical Date Seen: Feb 09, 2025 Post op day Post op day: 4 Subjective Patient reports: Feels better (Patient feels good this morning, tolerated clear liquid diet, having good ostomy production, no abdominal pain complaints) Review of Systems: Deferred Objective Vital signs Vital Sign Date Time Temp Pulse Resp B/P (MAP) Pulse Ox O2 Delivery O2 Flow Rate FiO2 02/09/25 10:01 165/77 02/09/25 09:00 98.4 91 18 97 98.4 02/08/25 20:00 Room Air* 0 21 Total Intake and Output 02/08/25 02/08/25 02/09/25 15:00 23:00 07:00 Intake Total 975 ml 800 ml Output Total 1400 ml 2100 ml Balance -425 ml -1300 ml Medications Current Medications Medications Dose Ordered Sig/Juan Route Start Time Stop Time Status Last Admin Dose Admin Acetaminophen 650 mg Q6HP PRN PO 02/01/25 16:15 02/09/25 01:11 650 MG Valsartan 80 mg DAILY PO 02/02/25 10:00 02/09/25 10:01 80 MG Ondansetron HCl 4 mg Q6HPRN PRN IV 02/03/25 15:15 02/04/25 06:11 4 MG Pantoprazole Sodium 40 mg DAILY IV 02/05/25 10:00 02/09/25 09:39 40 MG Amino Acids 0 ml @ 0 mls/hr PER PHARMACY IV 02/06/25 11:45 Cancel Diagnostic Test (Pha) 1 strip Q6HR 02/06/25 12:00 02/09/25 05:45 1 STRIP Insulin Human Regular FOLLOW SLIDING SCALE Q6HR SC 02/06/25 12:00 02/08/25 11:21 2 UNITS Dextrose 50 ml UD IV 02/06/25 11:45 Amino Acids/ Electrolytes/ Dextrose 1,000 ml @ 41 mls/hr DAILY@2200 IV 02/06/25 22:00 Cancel Piperacillin Sod/ Tazobactam Sod 100 ml @ 25 mls/hr Q8HR IV 02/07/25 14:00 02/09/25 05:44 25 MLS/HR Enoxaparin Sodium 30 mg DAILY SC 02/08/25 10:00 02/09/25 09:39 30 MG Ketorolac Tromethamine 15 mg Q6HPRN PRN IV 02/07/25 14:30 02/12/25 14:29 Fat Emulsion Intravenous 100 ml/Sodium Acetate 20 meq/Potassium Phosphate 22 meq/ Calcium Gluconate 4.65 meq/ Magnesium Sulfate 4 meq/ Multivitamins 10 ml/Chromium/ Copper/Manganese/ Zinc 1 ml/Amino Acids/Dextrose/ Purified Water 1,587 ml @ 66 mls/hr Q24H3M IV 02/08/25 22:00 02/09/25 21:59 Cancel Potassium Chloride 100 ml @ 50 mls/hr Q2H IV 02/09/25 11:15 02/09/25 15:14 Laboratory Laboratory Tests 02/09/25 05:35 Test 02/09/25 05:35 Range/Units Serum Glucose 105 74-106 mg/dL Microbiology Date/Time Source Procedure Growth Status 02/01/25 17:27 Nose MRSA Screen - Final Complete Examination: GENERAL:Normal (AAO x3), LUNGS:Normal (Nonlabored breathing with symmetric expansion), ABDOMEN:Normal (Nondistended, soft, depressible, midline incision with arvind in place and without surrounding signs of infection, left abdominal ostomy with stool production and pink mucosa) Labs and/or images reviewed: Labs reviewed by me (No leukocytosis, hemoglobin stable) Problem List/Assessment/Plan Assessment and Plan Mrs. Mckeon is a 84-year-old female who is currently postop day 4 from exploratory laparotomy with loop colostomy by Dr. Mclain. Patient doing well this morning, tolerated clear liquid diet. 1. Advance diet as tolerated 2. IR for biopsy of liver mass 3. We will eventually need a diagnostic colonoscopy 4. Out of bed and ambulate 5. Incentive spirometry 6. Ostomy education 7. Pain and nausea control Plan discussed with Plan discussed with: Patient, Daughter Visit Coding Surgery Date of Service if different f: Feb 09, 2025 Billing Provider: SCARLET GRULLON MD Surgery Visit Codes: [id number] INP/OBS CARE(HIGH) SCARLET GRULLON MD Feb 09, 2025 12:22
[2025-02-09] MEDS: POTASSIUM CHL 20MEQ/100ML 100 ML IV SCH (13:08)
--- NOTE | 2025-02-09 16:11 | DVHPNRES ---
Progress Note Date Seen: Feb 09, 2025 Resident Creating Document: DIDIER HENRIQUEZ RESIDENT Medical Necessity Reason Pt with a Central, PICC or Fol: No Subjective Review of Systems Patient is an 84-year-old female with past medical history of hypertension, constipation, diverticulitis, who presented to the hospital chief complaint of intractable lower abdominal pain. Patient denies any nausea, vomiting, diarrhea. patient states that she has been constipated since 5 days and has not had a bowel movement. Complains of lower abdominal pain in the hypogastrium, left and right inguinal compartments which has been there for the last 2 weeks but has been progressively getting worse. Patient states that she has been having small hard pellets of stool since 2 weeks. Patient states that she has been taking magnesium citrate but has not been taking it regularly. as per daughter patient was recently admitted to [facility] a month ago and was diagnosed with diverticulitis. Patient also reports having sigmoidoscopy every 6 months at [facility] and the latest colonoscopy 1 year ago which was in October 2024 that was negative for malignancy or masses. Past medical history: hypertension, constipation, diverticulitis Surgical history: Appendectomy Social history: Lives with the daughter and denies smoking, alcohol, drug use Home medications: Valsartan 160 mg, carvedilol 6.25 b.i.d., pantoprazole 40 b.i.d., stool softeners and laxatives 02/02/2025: Patient seen at bedside. Patient today has not had a bowel movement. Last bowel movement was 5 days ago. Patient is given MiraLAX, lactulose, GI consulted. 02/03/2025: Patient seen at bedside. Patient today complained of One episode of vomiting overnight, nausea, abdominal pain on palpation. Abdomen is more distended. Patient still did not have a bowel movement. Fleet enema was given, patient still did not have a bowel movement. KUB ordered, shows nonobstructive bowel gas pattern. Large stool burden. Psyllium powder given. GI on board. 02/04/25: patient seen at bedside. Patient today complained of abdominal distention, abdominal pain nausea, vomiting. surgery consulted for possible obstruction. Patient kept NPO. NG tube placed with intermittent low suction. CT abdomen done showed Persistent focal luminal narrowing at the rectosigmoid junction that is concerning for a colon mass, suboptimally evaluated in the absence of enteric contrast. There is a 3.5 cm lobulated hypoenhancing region in the right liver that is concerning for metastatic disease. Moderate to severe distention of the entire colon with stool and gas. Diffuse thickening of the distal sigmoid and the rectum concerning for colitis. 02/05/25: Patient seen at bedside. patient today is connected to NG tube with low intermittent suction and patient feels better and is not distended, bloated. patient presents to undergo exploratory laparotomy. Patient and daughter explained about surgery and risks and benefits, patient and daughter also updated on possible cancer, rectal mass, Mets to the liver. Patient denies any bowel movement or passing of gas. 02/06/2025: Patient seen at bedside. Patient today has Colostomy with stool present in bag, patient started on PPN, we will be started on TPN tomorrow. Patient is on 1 L oxygen, radiology to do liver biopsy on Saturday. Obtain Records from [facility]. patient does complain of pain with inspiration. CA 19 -19 antigen elevated. Patient and family updated on status and answered all questions. 02/07/25- the patient was seen and evaluated at bedside. We will continue with the same management. PT request for service will be placed. She has no new complaints. All the patient's and daughter's questions were answered and all concerns were addressed. Patient is morning was 3.4, which was repleted. The patient was started on Lovenox 30 mg sc daily for DVT prophylaxis. IV ceftriaxone and Flagyl were discontinued, patient was started on IV Zosyn. Pending liver biopsy tomorrow morning. Chest x-ray showed enteric catheter in satisfactory position. 02/08/2025: Patient seen at bedside. discontinued NG tube. Started on clear liquid diet. We will advance as tolerated. Patient on IV Zosyn. WBC count decreased today. IR stated liver biopsy to be done outpatient. 02/09/2025: Patient seen at bedside. Patient is postop day 4. Moderate output of stool in the colostomy bag. Surgery on board. Patient denies any abdominal pain, nausea, vomiting, patient is to ambulate. Advance diet as tolerated. IR consulted again for liver biopsy. Objective vital signs Vital Sign Date Time Temp Pulse Resp B/P (MAP) Pulse Ox O2 Delivery O2 Flow Rate FiO2 02/09/25 10:01 165/77 02/09/25 09:00 98.4 91 18 97 98.4 02/09/25 08:00 Room Air* 0 21 Total Intake and Output 02/08/25 02/08/25 02/09/25 15:00 23:00 07:00 Intake Total 975 ml 800 ml Output Total 1400 ml 2100 ml Balance -425 ml -1300 ml medications Current Medications Medications Dose Ordered Sig/Juan Route Start Time Stop Time Status Last Admin Dose Admin Acetaminophen 650 mg Q6HP PRN PO 02/01/25 16:15 02/09/25 01:11 650 MG Valsartan 80 mg DAILY PO 02/02/25 10:00 02/09/25 10:01 80 MG Ondansetron HCl 4 mg Q6HPRN PRN IV 02/03/25 15:15 02/04/25 06:11 4 MG Pantoprazole Sodium 40 mg DAILY IV 02/05/25 10:00 02/09/25 09:39 40 MG Amino Acids 0 ml @ 0 mls/hr PER PHARMACY IV 02/06/25 11:45 Cancel Diagnostic Test (Pha) 1 strip Q6HR 02/06/25 12:00 02/09/25 12:00 1 STRIP Insulin Human Regular FOLLOW SLIDING SCALE Q6HR SC 02/06/25 12:00 02/09/25 12:00 2 UNITS Dextrose 50 ml UD IV 02/06/25 11:45 Amino Acids/ Electrolytes/ Dextrose 1,000 ml @ 41 mls/hr DAILY@2200 IV 02/06/25 22:00 Cancel Piperacillin Sod/ Tazobactam Sod 100 ml @ 25 mls/hr Q8HR IV 02/07/25 14:00 02/09/25 14:29 25 MLS/HR Enoxaparin Sodium 30 mg DAILY SC 02/08/25 10:00 02/09/25 09:39 30 MG Ketorolac Tromethamine 15 mg Q6HPRN PRN IV 02/07/25 14:30 02/12/25 14:29 Fat Emulsion Intravenous 100 ml/Sodium Acetate 20 meq/Potassium Phosphate 22 meq/ Calcium Gluconate 4.65 meq/ Magnesium Sulfate 4 meq/ Multivitamins 10 ml/Chromium/ Copper/Manganese/ Zinc 1 ml/Amino Acids/Dextrose/ Purified Water 1,587 ml @ 66 mls/hr Q24H3M IV 02/08/25 22:00 12/2/25 21:59 Cancel Examination General: Patient alert and oriented in person, place and time. Patient following commands. HEENT: Normocephalic, atraumatic, moist mucous membranes Respiratory/pulmonary: Clear lungs bilaterally, vesicular murmurs present in almost all lung santamaria, no associated crackles or wheezes. Cardiovascular: Normal heart sounds S1 and S2 with no associated murmurs Abdomen: Abdomen distended, Hypoactive bowel sounds. Incision covered by dressing on abdomen. colostomy bag showing stool. Extremities: There is no peripheral edema present at the lower extremities. Peripheral Pulses: 3+ Radial (R). 3+ Radial (L). 3+ Dorsalis pedis (R). 3+ Dorsalis pedis(L) Skin: No rashes or pruritus, there is no sacral edema present at this time. Neurological: Intact cranial nerves with no focal neurologic deficits laboratory and microbiology Laboratory Tests 02/09/25 05:35 Test 02/09/25 05:35 Range/Units Serum Glucose 105 74-106 mg/dL Microbiology Date/Time Source Procedure Growth Status 02/01/25 17:27 Nose MRSA Screen - Final Complete Problem List/Assessment/Plan Problem List/Assessment/Plan Acute intractable abdominal pain Severe constipation Sigmoid diverticulitis Possible stricture/mass in the sigmoid colon Colon Mass Cholelithiasis H/o GERD - clear liquid diet - IV fluids - IV antibiotics ceftriaxone and metronidazole - magnesium citrate, daily MiraLax and senna - patient reports to have a colonoscopy about a year ago with a gastro group, last sigmoidoscopy in October 2024 at [facility] and as reported by daughter was normal - GI consulted. - gallbladder ultrasound showed Cholelithiasis. Sonographic Haq's sign is present. - KUB ordered, showed nonobstructive bowel gas pattern. Large stool burden. - patient might need enema - MiraLax - lactulose - suppository - Fleet enema - psyllium powder 02/04/2025: - surgery consulted for possible obstruction - surgeon kept patient NPO and NG tube with low intermittent suction - CT abdomen done showed Persistent focal luminal narrowing at the rectosigmoid junction that is concerning for a colon mass, suboptimally evaluated in the absence of enteric contrast. There is a 3.5 cm lobulated hypoenhancing region in the right liver that is concerning for metastatic disease. Moderate to severe distention of the entire colon with stool and gas. Diffuse thickening of the distal sigmoid and the rectum concerning for colitis. - ordered tumor markers - GI to possibly do colonoscopy - gallbladder ultrasound showed Acute cholecystitis. 02/05/2025: Patient is to get exploratory laparotomy. 02/08/2025: Discontinued NG tube, started on clear liquid diet, liver biopsy to be done outpatient. PUD prophylaxis: Protonix Goals of care addressed with the patient for more than 27 minutes: Full code status Case discussed with Dr. Acosta, patient and nurse Plan discussed with: Patient Dietary Evaluation Review Comments: TPN Adjustment Recommendation Goal: TPN should meet 75-100% of patients nutritional needs. Current Status: Protein: 112% of needs (exceeds requirement) Energy: 63% of needs (below requirement) Recommendation: Adjust TPN per pharmacy to deliver: Protein: 70-80 g Energy: 9002-5078 kcal Rationale: Current formula oversupplies protein and undersupplies energy. Adjustment will better align with patients estimated needs and prevent unnecessary nitrogen load. Expected Outcomes/Goals: Recovered GI function, Visit Coding STANDARD RES Billing Provider: SANDRA WATERS MD Date of Service if different f: Feb 09, 2025 Common Visit Codes: [id number] INP/OBS CARE(HIGH) DIDIER HENRIQUEZ RESIDENT Feb 09, 2025 16:11 SANDRA WATERS MD Feb 09, 2025 19:11
--- NOTE | 2025-02-09 18:02 | DVHPN2 ---
Progress Note Date Seen: Feb 09, 2025 Resident Creating Document: ANAND TIERNEY RESIDENT Medical Necessity Reason Pt with a Central, PICC or Fol: No Subjective Patient reports: No new complaints, Feels better Objective vital signs Vital Sign Date Time Temp Pulse Resp B/P (MAP) Pulse Ox O2 Delivery O2 Flow Rate FiO2 02/09/25 13:00 98.1 95 18 158/86 (110) 95 98.1 02/09/25 08:00 Room Air* 0 21 Total Intake and Output 02/08/25 02/08/25 02/09/25 15:00 23:00 07:00 Intake Total 975 ml 800 ml Output Total 1400 ml 2100 ml Balance -425 ml -1300 ml medications Current Medications Medications Dose Ordered Sig/Juan Route Start Time Stop Time Status Last Admin Dose Admin Acetaminophen 650 mg Q6HP PRN PO 02/01/25 16:15 02/09/25 01:11 650 MG Valsartan 80 mg DAILY PO 02/02/25 10:00 02/09/25 10:01 80 MG Ondansetron HCl 4 mg Q6HPRN PRN IV 02/03/25 15:15 02/04/25 06:11 4 MG Pantoprazole Sodium 40 mg DAILY IV 02/05/25 10:00 02/09/25 09:39 40 MG Amino Acids 0 ml @ 0 mls/hr PER PHARMACY IV 02/06/25 11:45 Cancel Diagnostic Test (Pha) 1 strip Q6HR 02/06/25 12:00 02/09/25 12:00 1 STRIP Insulin Human Regular FOLLOW SLIDING SCALE Q6HR SC 02/06/25 12:00 02/09/25 12:00 2 UNITS Dextrose 50 ml UD IV 02/06/25 11:45 Amino Acids/ Electrolytes/ Dextrose 1,000 ml @ 41 mls/hr DAILY@2200 IV 02/06/25 22:00 Cancel Piperacillin Sod/ Tazobactam Sod 100 ml @ 25 mls/hr Q8HR IV 02/07/25 14:00 02/09/25 14:29 25 MLS/HR Enoxaparin Sodium 30 mg DAILY SC 02/08/25 10:00 02/09/25 09:39 30 MG Ketorolac Tromethamine 15 mg Q6HPRN PRN IV 02/07/25 14:30 02/12/25 14:29 Fat Emulsion Intravenous 100 ml/Sodium Acetate 20 meq/Potassium Phosphate 22 meq/ Calcium Gluconate 4.65 meq/ Magnesium Sulfate 4 meq/ Multivitamins 10 ml/Chromium/ Copper/Manganese/ Zinc 1 ml/Amino Acids/Dextrose/ Purified Water 1,587 ml @ 66 mls/hr Q24H3M IV 02/08/25 22:00 02/09/25 21:59 Cancel Examination Patient lying in bed, in no acute distress General: Well-built, afebrile, palor, mucosae are moist Cardiovascular: Regular S1 and S2. No murmurs, gallops or rubs. No JVD elevation. No pedal edema Respiratory: Normal B/L air entry on room air. Clear lung sounds on auscultation Abdomen: Soft nontender and nondistended, normoactive bowel sounds, no rebound tenderness, no organomegaly, no masses. Colostomy seen draining dark brown stool Genitourinary: Deferred MSK/skin: Mobilizes 4 limbs. Skin is dry and warm Neurological: No motor, no sensitive deficits, normal speech. Pupils are isocoric and reactive. Psych/Mental Status: A/Ox3 laboratory and microbiology Laboratory Tests 02/09/25 05:35 Test 02/09/25 05:35 Range/Units Serum Glucose 105 74-106 mg/dL Microbiology Date/Time Source Procedure Growth Status 02/01/25 17:27 Nose MRSA Screen - Final Complete Labs and/or images reviewed: Labs reviewed by me, Image(s) reviewed by me Problem List/Assessment/Plan Problem List/Assessment/Plan Acute sigmoid colon diverticulitis-mild ? Sigmoid stricture. ? Sigmoid mass Large bowl obstruction secondary to above R/O acute cholecystitis Constipation Cholelithiasis L1/T12 compression fracture-stable KUB today shows nonobstructive bowel gas pattern. Large stool burden. Patient had multiple sigmoidoscopies in the recent past, which were unremarkable according to the patient. CT ABD Persistent focal luminal narrowing at the rectosigmoid junction that is concerning for a colon mass, suboptimally evaluated in the absence of enteric contrast. Sigmoidoscopy is recommended. There is a 3.5 cm lobulated hypoenhancing region in the right liver that is concerning for metastatic disease. Moderate to severe distention of the entire colon with stool and gas. Diffuse thickening of the distal sigmoid and the rectum concerning for colitis. Plan: Tolerating clear liquid diet. Status post ex lap, postoperative day 4, awaiting IR for liver biopsy. No biopsies were taken intraoperatively. Outpatient follow up with GI for diagnostic colonoscopy within the next 2-4 weeks. 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 Continue IV antibiotics Per daughter, patient does not take fibers or eats fruits vegetables. We will continue to follow up Plan discussed with patient, daughter in which all questions have been answered Case discussed with Dr. Sinclair Plan discussed with: Patient Dietary Evaluation Review Comments: TPN Adjustment Recommendation Goal: TPN should meet 75-100% of patients nutritional needs. Current Status: Protein: 112% of needs (exceeds requirement) Energy: 63% of needs (below requirement) Recommendation: Adjust TPN per pharmacy to deliver: Protein: 70-80 g Energy: 1398-8876 kcal Rationale: Current formula oversupplies protein and undersupplies energy. Adjustment will better align with patients estimated needs and prevent unnecessary nitrogen load. Expected Outcomes/Goals: Recovered GI function, ANAND TIERNEY RESIDENT Feb 09, 2025 18:02
[2025-02-09] MEDS: KETOROLAC TROMETH 30 MG/ML 1ML VIAL IV PRN (22:53)
[2025-02-10] VITALS (7 sets, daily range): BP systolic 135–159; BP diastolic 69–87; PULSE 80–108; RESP 16–98; TEMP 97.6–98.4; O2SAT 95–98
[2025-02-10 05:43] LABS: Hematocrit 33.7 % (36.0-46.0); Hemoglobin 11.3 g/dL (12.2-16.2); Mean Corpuscular Hemoglobin 31.0 pg (28.0-32.0); Mean Corpuscular Volume 92.6 fL (80.0-100.0); Nucleated Red Blood Cells % 0.0 %
[2025-02-10 06:20] LABS: Alanine Aminotransferase 13 U/L (7-40); Albumin 3.2 g/dL (3.2-4.8); Alkaline Phosphatase 76 U/L (46-116); Anion Gap 8 (5-15); BUN/Creatinine Ratio 12.0 (10.0-20.0); Carbon Dioxide 25 mmol/L (20-31); Chloride 107 mmol/L (98-107); Glucose 103 mg/dL (74-106); Potassium 3.9 mmol/L (3.5-5.1); Sodium 140 mmol/L (136-145); Total Protein 6.0 g/dL (5.7-8.2)
[2025-02-10 06:21] LABS: Bilirubin, Total 0.7 mg/dL (0.2-1.0)
[2025-02-10 06:30] LABS: Blood Urea Nitrogen 6 mg/dL (9-23); Calcium 8.6 mg/dL (8.7-10.4)
--- NOTE | 2025-02-10 13:17 | DVHPN2 ---
Progress Note - Surgical Date Seen: Feb 10, 2025 Post op day Post op day: 5 Subjective Patient reports: No new complaints Review of Systems: Deferred Objective Vital signs Vital Sign Date Time Temp Pulse Resp B/P (MAP) Pulse Ox O2 Delivery O2 Flow Rate FiO2 02/10/25 12:38 97.6 89 19 157/78 (104) 97 97.6 02/10/25 08:00 Room Air* 0 21 Total Intake and Output 02/09/25 02/09/25 02/10/25 15:00 23:00 07:00 Intake Total 950 ml 400 ml Output Total 1650 ml 1100 ml Balance -700 ml -700 ml Medications Current Medications Medications Dose Ordered Sig/Juan Route Start Time Stop Time Status Last Admin Dose Admin Acetaminophen 650 mg Q6HP PRN PO 02/01/25 16:15 02/09/25 01:11 650 MG Valsartan 80 mg DAILY PO 02/02/25 10:00 02/10/25 10:35 80 MG Ondansetron HCl 4 mg Q6HPRN PRN IV 02/03/25 15:15 02/04/25 06:11 4 MG Pantoprazole Sodium 40 mg DAILY IV 02/05/25 10:00 02/10/25 10:34 40 MG Amino Acids 0 ml @ 0 mls/hr PER PHARMACY IV 02/06/25 11:45 Cancel Diagnostic Test (Pha) 1 strip Q6HR 02/06/25 12:00 02/10/25 12:00 1 STRIP Insulin Human Regular FOLLOW SLIDING SCALE Q6HR SC 02/06/25 12:00 02/10/25 12:00 2 UNITS Dextrose 50 ml UD IV 02/06/25 11:45 Amino Acids/ Electrolytes/ Dextrose 1,000 ml @ 41 mls/hr DAILY@2200 IV 02/06/25 22:00 Cancel Piperacillin Sod/ Tazobactam Sod 100 ml @ 25 mls/hr Q8HR IV 02/07/25 14:00 02/10/25 05:37 25 MLS/HR Enoxaparin Sodium 30 mg DAILY SC 02/08/25 10:00 02/10/25 10:34 30 MG Ketorolac Tromethamine 15 mg Q6HPRN PRN IV 02/07/25 14:30 02/12/25 14:29 02/09/25 22:53 15 MG Fat Emulsion Intravenous 100 ml/Sodium Acetate 20 meq/Potassium Phosphate 22 meq/ Calcium Gluconate 4.65 meq/ Magnesium Sulfate 4 meq/ Multivitamins 10 ml/Chromium/ Copper/Manganese/ Zinc 1 ml/Amino Acids/Dextrose/ Purified Water 1,587 ml @ 66 mls/hr Q24H3M IV 02/08/25 22:00 02/09/25 21:59 Cancel Laboratory Laboratory Tests 02/10/25 05:16 Test 02/10/25 05:16 Range/Units Serum Glucose 103 74-106 mg/dL Microbiology Date/Time Source Procedure Growth Status 02/01/25 17:27 Nose MRSA Screen - Final Complete Examination: GENERAL:Normal (O x3), ABDOMEN:Normal (Nondistended, soft, depressible, midline incision with arvind in place and without surrounding signs of infection, left quadrant ostomy with pink mucosa and stool production) Labs and/or images reviewed: Labs reviewed by me (No leukocytosis and hemoglobin stable) Problem List/Assessment/Plan Assessment and Plan Mrs. Mckeon is a 84-year-old female who is currently postop day 5 from exploratory laparotomy with loop colostomy by Dr. Mclain. Patient continues to do well, tolerated full liquid diet, keep advance diet as tolerated to a goal of regular. 1. Advance diet as tolerated 2. IR for biopsy of liver mass 3. We will eventually need a diagnostic colonoscopy 4. Out of bed and ambulate 5. Incentive spirometry 6. Ostomy education 7. Pain and nausea control Plan discussed with Plan discussed with: Patient, Daughter, Son Visit Coding Surgery Date of Service if different f: Feb 10, 2025 Billing Provider: SCARLET GRULLON MD Surgery Visit Codes: [id number] INP/OBS CARE(HIGH) SCARLET GRULLON MD Feb 10, 2025 13:17
--- NOTE | 2025-02-10 17:28 | DVHPN2 ---
Progress Note Date Seen: Feb 10, 2025 Resident Creating Document: ANAND TIERNEY RESIDENT Medical Necessity Reason Pt with a Central, PICC or Fol: No Subjective Patient reports: No new complaints Objective vital signs Vital Sign Date Time Temp Pulse Resp B/P (MAP) Pulse Ox O2 Delivery O2 Flow Rate FiO2 02/10/25 16:37 97.8 108 16 141/87 (105) 98 97.8 02/10/25 08:00 Room Air* 0 21 Total Intake and Output 02/09/25 02/09/25 02/10/25 15:00 23:00 07:00 Intake Total 950 ml 400 ml Output Total 1650 ml 1100 ml Balance -700 ml -700 ml medications Current Medications Medications Dose Ordered Sig/Juan Route Start Time Stop Time Status Last Admin Dose Admin Acetaminophen 650 mg Q6HP PRN PO 02/01/25 16:15 02/09/25 01:11 650 MG Valsartan 80 mg DAILY PO 02/02/25 10:00 02/10/25 10:35 80 MG Ondansetron HCl 4 mg Q6HPRN PRN IV 02/03/25 15:15 02/04/25 06:11 4 MG Pantoprazole Sodium 40 mg DAILY IV 02/05/25 10:00 02/10/25 10:34 40 MG Amino Acids 0 ml @ 0 mls/hr PER PHARMACY IV 02/06/25 11:45 Cancel Diagnostic Test (Pha) 1 strip Q6HR 02/06/25 12:00 02/10/25 12:00 1 STRIP Insulin Human Regular FOLLOW SLIDING SCALE Q6HR SC 02/06/25 12:00 02/10/25 12:00 2 UNITS Dextrose 50 ml UD IV 02/06/25 11:45 Amino Acids/ Electrolytes/ Dextrose 1,000 ml @ 41 mls/hr DAILY@2200 IV 02/06/25 22:00 Cancel Piperacillin Sod/ Tazobactam Sod 100 ml @ 25 mls/hr Q8HR IV 02/07/25 14:00 02/10/25 14:15 25 MLS/HR Enoxaparin Sodium 30 mg DAILY SC 02/08/25 10:00 02/10/25 10:34 30 MG Ketorolac Tromethamine 15 mg Q6HPRN PRN IV 02/07/25 14:30 02/12/25 14:29 02/09/25 22:53 15 MG Fat Emulsion Intravenous 100 ml/Sodium Acetate 20 meq/Potassium Phosphate 22 meq/ Calcium Gluconate 4.65 meq/ Magnesium Sulfate 4 meq/ Multivitamins 10 ml/Chromium/ Copper/Manganese/ Zinc 1 ml/Amino Acids/Dextrose/ Purified Water 1,587 ml @ 66 mls/hr Q24H3M IV 02/08/25 22:00 02/09/25 21:59 Cancel Examination Patient lying in bed, in no acute distress General: Well-built, afebrile, palor, mucosae are moist Cardiovascular: Regular S1 and S2. No murmurs, gallops or rubs. No JVD elevation. No pedal edema Respiratory: Normal B/L air entry on room air. Clear lung sounds on auscultation Abdomen: Soft nontender and nondistended, normoactive bowel sounds, no rebound tenderness, no organomegaly, no masses. Colostomy seen draining dark brown stool Genitourinary: Deferred MSK/skin: Mobilizes 4 limbs. Skin is dry and warm Neurological: No motor, no sensitive deficits, normal speech. Pupils are isocoric and reactive. Psych/Mental Status: A/Ox3 laboratory and microbiology Laboratory Tests 02/10/25 05:16 Test 02/10/25 05:16 Range/Units Serum Glucose 103 74-106 mg/dL Microbiology Date/Time Source Procedure Growth Status 02/01/25 17:27 Nose MRSA Screen - Final Complete Labs and/or images reviewed: Labs reviewed by me, Image(s) reviewed by me Problem List/Assessment/Plan Problem List/Assessment/Plan Acute sigmoid colon diverticulitis-mild ? Sigmoid stricture. ? Sigmoid mass Large bowl obstruction secondary to above R/O acute cholecystitis Constipation Cholelithiasis L1/T12 compression fracture-stable KUB today shows nonobstructive bowel gas pattern. Large stool burden. Patient had multiple sigmoidoscopies in the recent past, which were unremarkable according to the patient. CT ABD Persistent focal luminal narrowing at the rectosigmoid junction that is concerning for a colon mass, suboptimally evaluated in the absence of enteric contrast. Sigmoidoscopy is recommended. There is a 3.5 cm lobulated hypoenhancing region in the right liver that is concerning for metastatic disease. Moderate to severe distention of the entire colon with stool and gas. Diffuse thickening of the distal sigmoid and the rectum concerning for colitis. Plan: Tolerating clear liquid diet. Status post ex lap, No biopsies were taken intraoperatively. IR to do liver biopsy as outpatient. Outpatient follow up with GI for diagnostic colonoscopy within the next 2-4 weeks. Follow up with pathology. 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 Continue IV antibiotics Per daughter, patient does not take fibers or eats fruits vegetables. We will continue to follow up Plan discussed with patient, daughter in which all questions have been answered Case discussed with Dr. Sinclair Plan discussed with: Patient Dietary Evaluation Review Comments: TPN Adjustment Recommendation Goal: TPN should meet 75-100% of patients nutritional needs. Current Status: Protein: 112% of needs (exceeds requirement) Energy: 63% of needs (below requirement) Recommendation: Adjust TPN per pharmacy to deliver: Protein: 70-80 g Energy: 0234-7359 kcal Rationale: Current formula oversupplies protein and undersupplies energy. Adjustment will better align with patients estimated needs and prevent unnecessary nitrogen load. Expected Outcomes/Goals: Recovered GI function, ANAND TIERNEY RESIDENT Feb 10, 2025 17:28
--- NOTE | 2025-02-10 17:42 | DVHPNRES ---
Progress Note Date Seen: Feb 10, 2025 Resident Creating Document: DIDIER HENRIQUEZ RESIDENT Medical Necessity Reason Pt with a Central, PICC or Fol: No Subjective Review of Systems Patient is an 84-year-old female with past medical history of hypertension, constipation, diverticulitis, who presented to the hospital chief complaint of intractable lower abdominal pain. Patient denies any nausea, vomiting, diarrhea. patient states that she has been constipated since 5 days and has not had a bowel movement. Complains of lower abdominal pain in the hypogastrium, left and right inguinal compartments which has been there for the last 2 weeks but has been progressively getting worse. Patient states that she has been having small hard pellets of stool since 2 weeks. Patient states that she has been taking magnesium citrate but has not been taking it regularly. as per daughter patient was recently admitted to [facility] a month ago and was diagnosed with diverticulitis. Patient also reports having sigmoidoscopy every 6 months at [facility] and the latest colonoscopy 1 year ago which was in October 2024 that was negative for malignancy or masses. Past medical history: hypertension, constipation, diverticulitis Surgical history: Appendectomy Social history: Lives with the daughter and denies smoking, alcohol, drug use Home medications: Valsartan 160 mg, carvedilol 6.25 b.i.d., pantoprazole 40 b.i.d., stool softeners and laxatives 02/02/2025: Patient seen at bedside. Patient today has not had a bowel movement. Last bowel movement was 5 days ago. Patient is given MiraLAX, lactulose, GI consulted. 02/03/2025: Patient seen at bedside. Patient today complained of One episode of vomiting overnight, nausea, abdominal pain on palpation. Abdomen is more distended. Patient still did not have a bowel movement. Fleet enema was given, patient still did not have a bowel movement. KUB ordered, shows nonobstructive bowel gas pattern. Large stool burden. Psyllium powder given. GI on board. 02/04/25: patient seen at bedside. Patient today complained of abdominal distention, abdominal pain nausea, vomiting. surgery consulted for possible obstruction. Patient kept NPO. NG tube placed with intermittent low suction. CT abdomen done showed Persistent focal luminal narrowing at the rectosigmoid junction that is concerning for a colon mass, suboptimally evaluated in the absence of enteric contrast. There is a 3.5 cm lobulated hypoenhancing region in the right liver that is concerning for metastatic disease. Moderate to severe distention of the entire colon with stool and gas. Diffuse thickening of the distal sigmoid and the rectum concerning for colitis. 02/05/25: Patient seen at bedside. patient today is connected to NG tube with low intermittent suction and patient feels better and is not distended, bloated. patient presents to undergo exploratory laparotomy. Patient and daughter explained about surgery and risks and benefits, patient and daughter also updated on possible cancer, rectal mass, Mets to the liver. Patient denies any bowel movement or passing of gas. 02/06/2025: Patient seen at bedside. Patient today has Colostomy with stool present in bag, patient started on PPN, we will be started on TPN tomorrow. Patient is on 1 L oxygen, radiology to do liver biopsy on Saturday. Obtain Records from [facility]. patient does complain of pain with inspiration. CA 19 -19 antigen elevated. Patient and family updated on status and answered all questions. 02/07/25- the patient was seen and evaluated at bedside. We will continue with the same management. PT request for service will be placed. She has no new complaints. All the patient's and daughter's questions were answered and all concerns were addressed. Patient is morning was 3.4, which was repleted. The patient was started on Lovenox 30 mg sc daily for DVT prophylaxis. IV ceftriaxone and Flagyl were discontinued, patient was started on IV Zosyn. Pending liver biopsy tomorrow morning. Chest x-ray showed enteric catheter in satisfactory position. 02/08/2025: Patient seen at bedside. discontinued NG tube. Started on clear liquid diet. We will advance as tolerated. Patient on IV Zosyn. WBC count decreased today. IR stated liver biopsy to be done outpatient. 02/09/2025: Patient seen at bedside. Patient is postop day 4. Moderate output of stool in the colostomy bag. Surgery on board. 02/10/2025: Patient seen at bedside. Reviewed [facility] records. IR consulted again for liver biopsy. Advance diet as tolerated. Patient denies any abdominal pain, nausea, vomiting, patient is to ambulate. Full liquid diet tolerating. Objective vital signs Vital Sign Date Time Temp Pulse Resp B/P (MAP) Pulse Ox O2 Delivery O2 Flow Rate FiO2 02/10/25 16:37 97.8 108 16 141/87 (105) 98 97.8 02/10/25 08:00 Room Air* 0 21 Total Intake and Output 02/09/25 02/09/25 02/10/25 15:00 23:00 07:00 Intake Total 950 ml 400 ml Output Total 1650 ml 1100 ml Balance -700 ml -700 ml medications Current Medications Medications Dose Ordered Sig/Juan Route Start Time Stop Time Status Last Admin Dose Admin Acetaminophen 650 mg Q6HP PRN PO 02/01/25 16:15 02/09/25 01:11 650 MG Valsartan 80 mg DAILY PO 02/02/25 10:00 02/10/25 10:35 80 MG Ondansetron HCl 4 mg Q6HPRN PRN IV 02/03/25 15:15 02/04/25 06:11 4 MG Pantoprazole Sodium 40 mg DAILY IV 02/05/25 10:00 02/10/25 10:34 40 MG Amino Acids 0 ml @ 0 mls/hr PER PHARMACY IV 02/06/25 11:45 Cancel Diagnostic Test (Pha) 1 strip Q6HR 02/06/25 12:00 02/10/25 12:00 1 STRIP Insulin Human Regular FOLLOW SLIDING SCALE Q6HR SC 02/06/25 12:00 02/10/25 12:00 2 UNITS Dextrose 50 ml UD IV 02/06/25 11:45 Amino Acids/ Electrolytes/ Dextrose 1,000 ml @ 41 mls/hr DAILY@2200 IV 02/06/25 22:00 Cancel Piperacillin Sod/ Tazobactam Sod 100 ml @ 25 mls/hr Q8HR IV 02/07/25 14:00 02/10/25 14:15 25 MLS/HR Enoxaparin Sodium 30 mg DAILY SC 02/08/25 10:00 02/10/25 10:34 30 MG Ketorolac Tromethamine 15 mg Q6HPRN PRN IV 02/07/25 14:30 02/12/25 14:29 02/09/25 22:53 15 MG Fat Emulsion Intravenous 100 ml/Sodium Acetate 20 meq/Potassium Phosphate 22 meq/ Calcium Gluconate 4.65 meq/ Magnesium Sulfate 4 meq/ Multivitamins 10 ml/Chromium/ Copper/Manganese/ Zinc 1 ml/Amino Acids/Dextrose/ Purified Water 1,587 ml @ 66 mls/hr Q24H3M IV 02/08/25 22:00 02/09/25 21:59 Cancel Examination General: Patient alert and oriented in person, place and time. Patient following commands. HEENT: Normocephalic, atraumatic, moist mucous membranes Respiratory/pulmonary: Clear lungs bilaterally, vesicular murmurs present in almost all lung santamaria, no associated crackles or wheezes. Cardiovascular: Normal heart sounds S1 and S2 with no associated murmurs Abdomen: Abdomen distended, Hypoactive bowel sounds. Incision covered by dressing on abdomen. colostomy bag showing stool. Extremities: There is no peripheral edema present at the lower extremities. Peripheral Pulses: 3+ Radial (R). 3+ Radial (L). 3+ Dorsalis pedis (R). 3+ Dorsalis pedis(L) Skin: No rashes or pruritus, there is no sacral edema present at this time. Neurological: Intact cranial nerves with no focal neurologic deficits laboratory and microbiology Laboratory Tests 02/10/25 05:16 Test 02/10/25 05:16 Range/Units Serum Glucose 103 74-106 mg/dL Microbiology Date/Time Source Procedure Growth Status 02/01/25 17:27 Nose MRSA Screen - Final Complete Problem List/Assessment/Plan Problem List/Assessment/Plan Acute intractable abdominal pain Severe constipation Sigmoid diverticulitis Possible stricture/mass in the sigmoid colon Colon Mass Cholelithiasis H/o GERD - clear liquid diet - IV fluids - IV antibiotics ceftriaxone and metronidazole - magnesium citrate, daily MiraLax and senna - patient reports to have a colonoscopy about a year ago with a gastro group, last sigmoidoscopy in October 2024 at [facility] and as reported by daughter was normal - GI consulted. - gallbladder ultrasound showed Cholelithiasis. Sonographic Haq's sign is present. - KUB ordered, showed nonobstructive bowel gas pattern. Large stool burden. - patient might need enema - MiraLax - lactulose - suppository - Fleet enema - psyllium powder 02/04/2025: - surgery consulted for possible obstruction - surgeon kept patient NPO and NG tube with low intermittent suction - CT abdomen done showed Persistent focal luminal narrowing at the rectosigmoid junction that is concerning for a colon mass, suboptimally evaluated in the absence of enteric contrast. There is a 3.5 cm lobulated hypoenhancing region in the right liver that is concerning for metastatic disease. Moderate to severe distention of the entire colon with stool and gas. Diffuse thickening of the distal sigmoid and the rectum concerning for colitis. - ordered tumor markers - GI to possibly do colonoscopy - gallbladder ultrasound showed Acute cholecystitis. 02/05/2025: Patient is to get exploratory laparotomy. 02/08/2025: Discontinued NG tube, started on clear liquid diet, liver biopsy to be done outpatient. PUD prophylaxis: Protonix Goals of care addressed with the patient for more than 27 minutes: Full code status Case discussed with Dr. Acosta, patient and nurse Plan discussed with: Patient Dietary Evaluation Review Comments: TPN Adjustment Recommendation Goal: TPN should meet 75-100% of patients nutritional needs. Current Status: Protein: 112% of needs (exceeds requirement) Energy: 63% of needs (below requirement) Recommendation: Adjust TPN per pharmacy to deliver: Protein: 70-80 g Energy: 9656-8613 kcal Rationale: Current formula oversupplies protein and undersupplies energy. Adjustment will better align with patients estimated needs and prevent unnecessary nitrogen load. Expected Outcomes/Goals: Recovered GI function, Visit Coding STANDARD RES Billing Provider: SANDRA WATERS MD Date of Service if different f: Feb 10, 2025 Common Visit Codes: [id number] INP/OBS CARE(HIGH) DIDIER HENRIQUEZ RESIDENT Feb 10, 2025 17:42
[2025-02-11] VITALS (8 sets, daily range): BP systolic 136–159; BP diastolic 56–76; PULSE 75–92; RESP 16–18; TEMP 97.5–98.5; O2SAT 93–98
[2025-02-11 07:03] LABS: Potassium 4.0 mmol/L (3.5-5.1); Sodium 142 mmol/L (136-145)
[2025-02-11 07:04] LABS: Anion Gap 9 (5-15); Carbon Dioxide 24 mmol/L (20-31)
[2025-02-11 07:08] LABS: Calcium 8.5 mg/dL (8.7-10.4); Chloride 109 mmol/L (98-107)
[2025-02-11 07:09] LABS: BUN/Creatinine Ratio 8.1 (10.0-20.0); Glucose 94 mg/dL (74-106)
[2025-02-11 07:11] LABS: Blood Urea Nitrogen 5 mg/dL (9-23)
--- NOTE | 2025-02-11 10:18 | DVHPN2 ---
Progress Note - Surgical Date Seen: Feb 11, 2025 Post op day Post op day: 6 Subjective Patient reports: No new complaints Review of Systems: Deferred Objective Vital signs Vital Sign Date Time Temp Pulse Resp B/P (MAP) Pulse Ox O2 Delivery O2 Flow Rate FiO2 02/11/25 09:00 98.3 78 18 145/56 (85) 98 98.3 02/10/25 20:00 Room Air* 0 21 Total Intake and Output 02/10/25 02/10/25 02/11/25 15:00 23:00 07:00 Intake Total 300 ml 300 ml Output Total 1300 ml Balance -1000 ml 300 ml Medications Current Medications Medications Dose Ordered Sig/Juan Route Start Time Stop Time Status Last Admin Dose Admin Acetaminophen 650 mg Q6HP PRN PO 02/01/25 16:15 02/09/25 01:11 650 MG Ondansetron HCl 4 mg Q6HPRN PRN IV 02/03/25 15:15 02/04/25 06:11 4 MG Pantoprazole Sodium 40 mg DAILY IV 02/05/25 10:00 02/10/25 10:34 40 MG Amino Acids 0 ml @ 0 mls/hr PER PHARMACY IV 02/06/25 11:45 Cancel Diagnostic Test (Pha) 1 strip Q6HR 02/06/25 12:00 02/11/25 05:35 1 STRIP Insulin Human Regular FOLLOW SLIDING SCALE Q6HR SC 02/06/25 12:00 02/10/25 12:00 2 UNITS Dextrose 50 ml UD IV 02/06/25 11:45 Amino Acids/ Electrolytes/ Dextrose 1,000 ml @ 41 mls/hr DAILY@2200 IV 02/06/25 22:00 Cancel Piperacillin Sod/ Tazobactam Sod 100 ml @ 25 mls/hr Q8HR IV 02/07/25 14:00 02/11/25 05:32 25 MLS/HR Enoxaparin Sodium 30 mg DAILY SC 02/08/25 10:00 02/10/25 10:34 30 MG Ketorolac Tromethamine 15 mg Q6HPRN PRN IV 02/07/25 14:30 02/12/25 14:29 02/10/25 18:57 15 MG Fat Emulsion Intravenous 100 ml/Sodium Acetate 20 meq/Potassium Phosphate 22 meq/ Calcium Gluconate 4.65 meq/ Magnesium Sulfate 4 meq/ Multivitamins 10 ml/Chromium/ Copper/Manganese/ Zinc 1 ml/Amino Acids/Dextrose/ Purified Water 1,587 ml @ 66 mls/hr Q24H3M IV 02/08/25 22:00 02/09/25 21:59 Cancel Valsartan 120 mg DAILY PO 02/11/25 10:00 Laboratory Laboratory Tests 02/11/25 04:00 02/10/25 05:16 Test 02/11/25 04:00 Range/Units Serum Glucose 94 74-106 mg/dL Microbiology Date/Time Source Procedure Growth Status 02/01/25 17:27 Nose MRSA Screen - Final Complete Examination: GENERAL:Normal (AAO x3), LUNGS:Normal (Nonlabored breathing with symmetric expansion), ABDOMEN:Normal (Nondistended, midline incision with arvind in place and without surrounding signs of infection, left abdominal ostomy with pink mucosa and stool production, soft and depressible) Labs and/or images reviewed: Labs reviewed by me (All within normal limits) Problem List/Assessment/Plan Assessment and Plan Mrs. Mckeon is a 84-year-old female who is currently postop day 6 from exploratory laparotomy with loop colostomy by Dr. Mclain. Patient continues to do well, tolerating diet, ambulating, having stool production per ostomy. Patient is cleared from surgical standpoint for discharge. 1. Cleared for discharge per surgical standpoint 2. Regular diet 3. Follow up with Dr. Mclain at surgery Clinic in 8 days for staple removal 4. No lifting over 10 lb for 8 weeks 5. For baseline pain control please use Tylenol and/or ibuprofen, follow heel stiffener's direction. For better results alternate medications. 6. Recommend [place] 5-325 mg 1 tab p.o. every 6 hours p.r.n. severe pain 7. Recommend MiraLax 1 packet daily p.o. PRN constipation 8. May shower, soap and water okay to run over incision sites. No bathing and swimming Plan discussed with Plan discussed with: Patient, Son Visit Coding Surgery Date of Service if different f: Feb 11, 2025 Billing Provider: SACRLET GRULLON MD Surgery Visit Codes: [id number] INP/OBS CARE(HIGH) SCARLET GRULLON MD Feb 11, 2025 10:18
--- NOTE | 2025-02-11 12:00 | DVHPN2 ---
Progress Note Date Seen: Feb 11, 2025 Resident Creating Document: ANAND TIERNEY RESIDENT Medical Necessity Reason Pt with a Central, PICC or Fol: No Subjective Patient reports: No new complaints Objective vital signs Vital Sign Date Time Temp Pulse Resp B/P (MAP) Pulse Ox O2 Delivery O2 Flow Rate FiO2 02/11/25 09:00 98.3 78 18 145/56 (85) 98 98.3 02/11/25 08:00 Room Air* 0 21 Total Intake and Output 02/10/25 02/10/25 02/11/25 15:00 23:00 07:00 Intake Total 300 ml 300 ml Output Total 1300 ml Balance -1000 ml 300 ml medications Current Medications Medications Dose Ordered Sig/Juan Route Start Time Stop Time Status Last Admin Dose Admin Acetaminophen 650 mg Q6HP PRN PO 02/01/25 16:15 02/09/25 01:11 650 MG Ondansetron HCl 4 mg Q6HPRN PRN IV 02/03/25 15:15 02/04/25 06:11 4 MG Pantoprazole Sodium 40 mg DAILY IV 02/05/25 10:00 02/10/25 10:34 40 MG Amino Acids 0 ml @ 0 mls/hr PER PHARMACY IV 02/06/25 11:45 Cancel Diagnostic Test (Pha) 1 strip Q6HR 02/06/25 12:00 02/11/25 11:51 1 STRIP Insulin Human Regular FOLLOW SLIDING SCALE Q6HR SC 02/06/25 12:00 02/10/25 12:00 2 UNITS Dextrose 50 ml UD IV 02/06/25 11:45 Amino Acids/ Electrolytes/ Dextrose 1,000 ml @ 41 mls/hr DAILY@2200 IV 02/06/25 22:00 Cancel Piperacillin Sod/ Tazobactam Sod 100 ml @ 25 mls/hr Q8HR IV 02/07/25 14:00 02/11/25 05:32 25 MLS/HR Enoxaparin Sodium 30 mg DAILY SC 02/08/25 10:00 02/10/25 10:34 30 MG Ketorolac Tromethamine 15 mg Q6HPRN PRN IV 02/07/25 14:30 02/12/25 14:29 02/10/25 18:57 15 MG Fat Emulsion Intravenous 100 ml/Sodium Acetate 20 meq/Potassium Phosphate 22 meq/ Calcium Gluconate 4.65 meq/ Magnesium Sulfate 4 meq/ Multivitamins 10 ml/Chromium/ Copper/Manganese/ Zinc 1 ml/Amino Acids/Dextrose/ Purified Water 1,587 ml @ 66 mls/hr Q24H3M IV 02/08/25 22:00 02/09/25 21:59 Cancel Valsartan 120 mg DAILY PO 02/11/25 10:00 Examination Patient lying in bed, in no acute distress General: Well-built, afebrile, palor, mucosae are moist Cardiovascular: Regular S1 and S2. No murmurs, gallops or rubs. No JVD elevation. No pedal edema Respiratory: Normal B/L air entry on room air. Clear lung sounds on auscultation Abdomen: Soft nontender and nondistended, normoactive bowel sounds, no rebound tenderness, no organomegaly, no masses. Colostomy seen draining dark brown stool Genitourinary: Deferred MSK/skin: Mobilizes 4 limbs. Skin is dry and warm Neurological: No motor, no sensitive deficits, normal speech. Pupils are isocoric and reactive. Psych/Mental Status: A/Ox3 laboratory and microbiology Laboratory Tests 02/11/25 04:00 02/10/25 05:16 Test 02/11/25 04:00 Range/Units Serum Glucose 94 74-106 mg/dL Microbiology Date/Time Source Procedure Growth Status 02/01/25 17:27 Nose MRSA Screen - Final Complete Labs and/or images reviewed: Labs reviewed by me, Image(s) reviewed by me Problem List/Assessment/Plan Problem List/Assessment/Plan Acute sigmoid colon diverticulitis-mild ? Sigmoid stricture. ? Sigmoid mass Large bowl obstruction secondary to above R/O acute cholecystitis Constipation Cholelithiasis L1/T12 compression fracture-stable KUB today shows nonobstructive bowel gas pattern. Large stool burden. Patient had multiple sigmoidoscopies in the recent past, which were unremarkable according to the patient. CT ABD Persistent focal luminal narrowing at the rectosigmoid junction that is concerning for a colon mass, suboptimally evaluated in the absence of enteric contrast. Sigmoidoscopy is recommended. There is a 3.5 cm lobulated hypoenhancing region in the right liver that is concerning for metastatic disease. Moderate to severe distention of the entire colon with stool and gas. Diffuse thickening of the distal sigmoid and the rectum concerning for colitis. Plan: Tolerating clear liquid diet. Status post ex lap, No biopsies were taken intraoperatively. IR to do liver biopsy as outpatient. Outpatient follow up with GI for diagnostic colonoscopy within the next 2-4 weeks CEA level elevated to 10.84 suggestive of sigmoid malignancy Advanced diet as tolerated Continue Protonix 40 mg IV daily No masses or stool felt on rectal exam. Continue IV antibiotics Per daughter, patient does not take fibers or eats fruits vegetables. We will continue to follow up Plan discussed with patient, daughter in which all questions have been answered Case discussed with Dr. Sinclair Plan discussed with: Patient, Spouse Dietary Evaluation Review Comments: TPN Adjustment Recommendation Goal: TPN should meet 75-100% of patients nutritional needs. Current Status: Protein: 112% of needs (exceeds requirement) Energy: 63% of needs (below requirement) Recommendation: Adjust TPN per pharmacy to deliver: Protein: 70-80 g Energy: 2313-5289 kcal Rationale: Current formula oversupplies protein and undersupplies energy. Adjustment will better align with patients estimated needs and prevent unnecessary nitrogen load. Expected Outcomes/Goals: Recovered GI function, ANAND TIERNEY RESIDENT Feb 11, 2025 12:00
--- NOTE | 2025-02-11 12:30 | DVHPNRES ---
Progress Note Date Seen: Feb 11, 2025 Resident Creating Document: DIDIER HENRIQUEZ RESIDENT Medical Necessity Reason Pt with a Central, PICC or Fol: No Subjective Review of Systems Patient is an 84-year-old female with past medical history of hypertension, constipation, diverticulitis, who presented to the hospital chief complaint of intractable lower abdominal pain. Patient denies any nausea, vomiting, diarrhea. patient states that she has been constipated since 5 days and has not had a bowel movement. Complains of lower abdominal pain in the hypogastrium, left and right inguinal compartments which has been there for the last 2 weeks but has been progressively getting worse. Patient states that she has been having small hard pellets of stool since 2 weeks. Patient states that she has been taking magnesium citrate but has not been taking it regularly. as per daughter patient was recently admitted to [facility] a month ago and was diagnosed with diverticulitis. Patient also reports having sigmoidoscopy every 6 months at [facility] and the latest colonoscopy 1 year ago which was in October 2024 that was negative for malignancy or masses. Past medical history: hypertension, constipation, diverticulitis Surgical history: Appendectomy Social history: Lives with the daughter and denies smoking, alcohol, drug use Home medications: Valsartan 160 mg, carvedilol 6.25 b.i.d., pantoprazole 40 b.i.d., stool softeners and laxatives 02/02/2025: Patient seen at bedside. Patient today has not had a bowel movement. Last bowel movement was 5 days ago. Patient is given MiraLAX, lactulose, GI consulted. 02/03/2025: Patient seen at bedside. Patient today complained of One episode of vomiting overnight, nausea, abdominal pain on palpation. Abdomen is more distended. Patient still did not have a bowel movement. Fleet enema was given, patient still did not have a bowel movement. KUB ordered, shows nonobstructive bowel gas pattern. Large stool burden. Psyllium powder given. GI on board. 02/04/25: patient seen at bedside. Patient today complained of abdominal distention, abdominal pain nausea, vomiting. surgery consulted for possible obstruction. Patient kept NPO. NG tube placed with intermittent low suction. CT abdomen done showed Persistent focal luminal narrowing at the rectosigmoid junction that is concerning for a colon mass, suboptimally evaluated in the absence of enteric contrast. There is a 3.5 cm lobulated hypoenhancing region in the right liver that is concerning for metastatic disease. Moderate to severe distention of the entire colon with stool and gas. Diffuse thickening of the distal sigmoid and the rectum concerning for colitis. 02/05/25: Patient seen at bedside. patient today is connected to NG tube with low intermittent suction and patient feels better and is not distended, bloated. patient presents to undergo exploratory laparotomy. Patient and daughter explained about surgery and risks and benefits, patient and daughter also updated on possible cancer, rectal mass, Mets to the liver. Patient denies any bowel movement or passing of gas. 02/06/2025: Patient seen at bedside. Patient today has Colostomy with stool present in bag, patient started on PPN, we will be started on TPN tomorrow. Patient is on 1 L oxygen, radiology to do liver biopsy on Saturday. Obtain Records from [facility]. patient does complain of pain with inspiration. CA 19 -19 antigen elevated. Patient and family updated on status and answered all questions. 02/07/25- the patient was seen and evaluated at bedside. We will continue with the same management. PT request for service will be placed. She has no new complaints. All the patient's and daughter's questions were answered and all concerns were addressed. Patient is morning was 3.4, which was repleted. The patient was started on Lovenox 30 mg sc daily for DVT prophylaxis. IV ceftriaxone and Flagyl were discontinued, patient was started on IV Zosyn. Pending liver biopsy tomorrow morning. Chest x-ray showed enteric catheter in satisfactory position. 02/08/2025: Patient seen at bedside. discontinued NG tube. Started on clear liquid diet. We will advance as tolerated. Patient on IV Zosyn. WBC count decreased today. IR stated liver biopsy to be done outpatient. 02/09/2025: Patient seen at bedside. Patient is postop day 4. Moderate output of stool in the colostomy bag. Surgery on board. 02/10/2025: Patient seen at bedside. Reviewed [facility] records. IR consulted again for liver biopsy. Advance diet as tolerated. Patient denies any abdominal pain, nausea, vomiting, patient is to ambulate. Full liquid diet tolerating. 02/11/2025: Patient seen at bedside. IR stated liver biopsy to be done outpatient. services manager consulted for PCP enrollment. Patient is to follow-up with discharge Clinic on Saturday with Dr. Santiago. Patient's diet is advanced to soft mechanical diet. Patient denies any abdominal pain, nausea, vomiting. Moderate amount of stool in colostomy bag. Objective vital signs Vital Sign Date Time Temp Pulse Resp B/P (MAP) Pulse Ox O2 Delivery O2 Flow Rate FiO2 02/11/25 09:00 98.3 78 18 145/56 (85) 98 98.3 02/11/25 08:00 Room Air* 0 21 Total Intake and Output 02/10/25 02/10/25 02/11/25 15:00 23:00 07:00 Intake Total 300 ml 300 ml Output Total 1300 ml Balance -1000 ml 300 ml medications Current Medications Medications Dose Ordered Sig/Juan Route Start Time Stop Time Status Last Admin Dose Admin Acetaminophen 650 mg Q6HP PRN PO 02/01/25 16:15 02/09/25 01:11 650 MG Ondansetron HCl 4 mg Q6HPRN PRN IV 02/03/25 15:15 02/04/25 06:11 4 MG Pantoprazole Sodium 40 mg DAILY IV 02/05/25 10:00 02/10/25 10:34 40 MG Amino Acids 0 ml @ 0 mls/hr PER PHARMACY IV 02/06/25 11:45 Cancel Diagnostic Test (Pha) 1 strip Q6HR 02/06/25 12:00 02/11/25 11:51 1 STRIP Insulin Human Regular FOLLOW SLIDING SCALE Q6HR SC 02/06/25 12:00 02/10/25 12:00 2 UNITS Dextrose 50 ml UD IV 02/06/25 11:45 Amino Acids/ Electrolytes/ Dextrose 1,000 ml @ 41 mls/hr DAILY@2200 IV 02/06/25 22:00 Cancel Piperacillin Sod/ Tazobactam Sod 100 ml @ 25 mls/hr Q8HR IV 02/07/25 14:00 02/11/25 05:32 25 MLS/HR Enoxaparin Sodium 30 mg DAILY SC 02/08/25 10:00 02/10/25 10:34 30 MG Ketorolac Tromethamine 15 mg Q6HPRN PRN IV 02/07/25 14:30 02/12/25 14:29 02/10/25 18:57 15 MG Fat Emulsion Intravenous 100 ml/Sodium Acetate 20 meq/Potassium Phosphate 22 meq/ Calcium Gluconate 4.65 meq/ Magnesium Sulfate 4 meq/ Multivitamins 10 ml/Chromium/ Copper/Manganese/ Zinc 1 ml/Amino Acids/Dextrose/ Purified Water 1,587 ml @ 66 mls/hr Q24H3M IV 02/08/25 22:00 02/09/25 21:59 Cancel Valsartan 120 mg DAILY PO 02/11/25 10:00 Examination General: Patient alert and oriented in person, place and time. Patient following commands. HEENT: Normocephalic, atraumatic, moist mucous membranes Respiratory/pulmonary: Clear lungs bilaterally, vesicular murmurs present in almost all lung santamaria, no associated crackles or wheezes. Cardiovascular: Normal heart sounds S1 and S2 with no associated murmurs Abdomen: Abdomen distended, Hypoactive bowel sounds. Incision covered by dressing on abdomen. colostomy bag showing stool. Extremities: There is no peripheral edema present at the lower extremities. Peripheral Pulses: 3+ Radial (R). 3+ Radial (L). 3+ Dorsalis pedis (R). 3+ Dorsalis pedis(L) Skin: No rashes or pruritus, there is no sacral edema present at this time. Neurological: Intact cranial nerves with no focal neurologic deficits laboratory and microbiology Laboratory Tests 02/11/25 04:00 02/10/25 05:16 Test 02/11/25 04:00 Range/Units Serum Glucose 94 74-106 mg/dL Microbiology Date/Time Source Procedure Growth Status 02/01/25 17:27 Nose MRSA Screen - Final Complete Problem List/Assessment/Plan Problem List/Assessment/Plan Acute intractable abdominal pain Severe constipation Sigmoid diverticulitis Possible stricture/mass in the sigmoid colon Colon Mass Cholelithiasis H/o GERD - clear liquid diet - IV fluids - IV antibiotics ceftriaxone and metronidazole - magnesium citrate, daily MiraLax and senna - patient reports to have a colonoscopy about a year ago with a gastro group, last sigmoidoscopy in October 2024 at [facility] and as reported by daughter was normal - GI consulted. - gallbladder ultrasound showed Cholelithiasis. Sonographic Haq's sign is present. - KUB ordered, showed nonobstructive bowel gas pattern. Large stool burden. - patient might need enema - MiraLax - lactulose - suppository - Fleet enema - psyllium powder 02/04/2025: - surgery consulted for possible obstruction - surgeon kept patient NPO and NG tube with low intermittent suction - CT abdomen done showed Persistent focal luminal narrowing at the rectosigmoid junction that is concerning for a colon mass, suboptimally evaluated in the absence of enteric contrast. There is a 3.5 cm lobulated hypoenhancing region in the right liver that is concerning for metastatic disease. Moderate to severe distention of the entire colon with stool and gas. Diffuse thickening of the distal sigmoid and the rectum concerning for colitis. - ordered tumor markers - GI to possibly do colonoscopy - gallbladder ultrasound showed Acute cholecystitis. 02/05/2025: Patient is to get exploratory laparotomy. 02/08/2025: Discontinued NG tube, started on clear liquid diet, liver biopsy to be done outpatient. Advance diet to soft mechanical diet PUD prophylaxis: Protonix Goals of care addressed with the patient for more than 27 minutes: Full code status Case discussed with Dr. Santiago, patient and nurse Plan discussed with: Patient My Orders My Orders Orders - DIDIER HENRIQUEZ Procedure Category Date Status Time Consult Care CONS 02/11/25 Transmitted Coordinator Mechanical Soft Diet DIET 02/11/25 Transmitted Lunch Schedule For Dc TIFFANIE 02/11/25 In Process Clinic F/U 11:21 Communication Order ORDERS 02/11/25 Transmitted 11:21 Dietary Evaluation Review Comments: TPN Adjustment Recommendation Goal: TPN should meet 75-100% of patients nutritional needs. Current Status: Protein: 112% of needs (exceeds requirement) Energy: 63% of needs (below requirement) Recommendation: Adjust TPN per pharmacy to deliver: Protein: 70-80 g Energy: 4674-3465 kcal Rationale: Current formula oversupplies protein and undersupplies energy. Adjustment will better align with patients estimated needs and prevent unnecessary nitrogen load. Expected Outcomes/Goals: Recovered GI function, Visit Coding STANDARD RES Billing Provider: DIDIER HENRIQUEZ Date of Service if different f: Feb 11, 2025 Common Visit Codes: [id number] INP/OBS CARE(HIGH) DIDIER HENRIQUEZ Feb 11, 2025 12:30
[2025-02-11] MEDS: VALSARTAN 80 MG TAB PO SCH (12:41)
[2025-02-11] MEDS ORDERED: SODIUM CHLORIDE 0.9% 1,000 ML IV ONE (17:30)
[2025-02-11] MEDS ORDERED: SODIUM CHLORIDE 0.9% 1,000 ML IV SCH (17:30)
[2025-02-12 01:00] VITALS: BP 146/65; PULSE 77; RESP 18; TEMP 98.9; O2SAT 95
[2025-02-12 05:00] VITALS: BP 145/68; PULSE 72; RESP 18; TEMP 98.3; O2SAT 96
[2025-02-12 08:54] VITALS: BP 151/68; PULSE 87; RESP 16; TEMP 97.5; O2SAT 97
--- NOTE | 2025-02-12 11:20 | DVHDSRES ---
Discharge Summary Date of Admission Resident Creating Document: DIDIER HENRIQUEZ RESIDENT Feb 01, 2025 at 15:29 Date of Discharge: Feb 12, 2025 Admitting Diagnosis Acute intractable abdominal pain likely due to colon mass Labs/Diagnostic Data: Laboratory Results Test 02/11/25 17:04 02/11/25 04:00 02/10/25 05:16 02/09/25 05:35 POC Glucose 101 mg/dl (70-106) Sodium Level 142 mmol/L (136-145) Potassium Level 4.0 mmol/L (3.5-5.1) Chloride Level 109 mmol/L (98-107) Carbon Dioxide Level 24 mmol/L (20-31) Anion Gap 9 (5-15) Blood Urea Nitrogen 5 mg/dL (9-23) Creatinine 0.62 mg/dL (0.550-1.02) Glomerular Filtration Rate Calc 87 mL/min (>90) BUN/Creatinine Ratio 8.1 (10.0-20.0) Serum Glucose 94 mg/dL (74-106) Calcium Level 8.5 mg/dL (8.7-10.4) White Blood Count 6.5 10^3/uL (4.4-10.8) Red Blood Count 3.64 10^6/uL (4.0-5.20) Hemoglobin 11.3 g/dL (12.2-16.2) Hematocrit 33.7 % (36.0-46.0) Mean Corpuscular Volume 92.6 fL (80.0-100.0) Mean Corpuscular Hemoglobin 31.0 pg (28.0-32.0) Mean Corpuscular Hemoglobin Concent 33.5 g/dL (32.0-36.0) Red Cell Distribution Width 13.0 % (11.8-14.3) Platelet Count 265 10^3/uL (140-450) Mean Platelet Volume 7.2 fL (6.9-10.8) Neutrophils (%) (Auto) 64.8 % (37.0-80.0) Lymphocytes (%) (Auto) 19.0 % (10.0-50.0) Monocytes (%) (Auto) 13.0 % (0.0-12.0) Eosinophils (%) (Auto) 2.7 % (0.0-7.0) Basophils (%) (Auto) 0.5 % (0.0-2.0) Neutrophils # (Auto) 4.2 10 ^3/uL (1.6-8.6) Lymphocytes # (Auto) 1.2 10 ^3/uL (0.4-5.4) Monocytes # (Auto) 0.9 10 ^3/uL (0-1.3) Eosinophils # (Auto) 0.2 10 ^3/uL (0-0.8) Basophils # (Auto) 0 10 ^3/uL (0-0.2) Nucleated Red Blood Cells 0.0 % Total Bilirubin 0.7 mg/dL (0.2-1.0) Aspartate Amino Transferase (AST) 24 U/L (13-40) Alanine Aminotransferase (ALT) 13 U/L (7-40) Alkaline Phosphatase 76 U/L (46-116) Total Protein 6.0 g/dL (5.7-8.2) Albumin 3.2 g/dL (3.2-4.8) Phosphorus Level 2.6 mg/dL (2.4-5.1) Magnesium Level 2.2 mg/dL (1.6-2.6) Test 02/07/25 04:52 02/04/25 16:19 02/04/25 14:20 02/03/25 15:48 Triglycerides Level 70 mg/dL (< 150) Tumor Marker Alpha Fetoprotein 4.3 ng/mL (0.0-8.7) CA 19-9 Antigen 6521 U/mL (0-35) CA 125 Antigen 7.4 U/mL (0.0-38.1) Carcinoembryonic Antigen 10.84 ng/mL (<=5.0) Prothrombin Time 11.1 sec (9.3-11.8) Prothrombin Time INR 1.05 (0.9-1.15) Activated Partial Thromboplast Time 25.9 SEC (24.5-34.5) Test 02/02/25 05:10 02/01/25 13:27 02/01/25 12:15 Erythrocyte Sedimentation Rate 62 mm/hr (0-20) C-Reactive Protein High Sensitivity 1.09 mg/dL (<1.0) Thyroid Stimulating Hormone (TSH) 4.46 uIU/mL (0.55-4.78) Direct Bilirubin 0.1 mg/dL (<0.3) Urine Color Light-yellow (Yellow) Urine Clarity Clear (Clear) Urine pH 6.0 (5.0-9.0) Urine Specific King 1.008 (1.001-1.035) Urine Protein Negative (Negative) Urine Ketones Negative (Negative) Urine Blood Negative /uL (Negative) Urine Nitrite Negative (Negative) Urine Bilirubin Negative (Negative) Urine Urobilinogen Normal mg/dL (Negative) Urine Leukocyte Esterase Negative /uL (Negative) Urine RBC <1 /hpf (0 - 4) Urine Microscopic WBC < 1 /HPF (0-5) Urine Squamous Epithelial Cells Few /hpf (<5) Urine Bacteria None seen /hpf (None Seen) Urine Glucose Normal mg/dL (Normal) Other Laboratory Tests 02/11/25 04:00 02/10/25 05:16 Brief Hx & Hospital Course: Patient is an 84-year-old female with past medical history of hypertension, constipation, diverticulitis, who presented to the hospital chief complaint of intractable lower abdominal pain. Patient denies any nausea, vomiting, diarrhea. patient states that she has been constipated since 5 days and has not had a bowel movement. Complains of lower abdominal pain in the hypogastrium, left and right inguinal compartments which has been there for the last 2 weeks but has been progressively getting worse. Patient states that she has been having small hard pellets of stool since 2 weeks. Patient states that she has been taking magnesium citrate but has not been taking it regularly. as per daughter patient was recently admitted to [facility] a month ago and was diagnosed with diverticulitis. Patient also reports having sigmoidoscopy every 6 months at [facility] and the latest colonoscopy 1 year ago which was in October 2024 that was negative for malignancy or masses. Past medical history: hypertension, constipation, diverticulitis Surgical history: Appendectomy Social history: Lives with the daughter and denies smoking, alcohol, drug use Home medications: Valsartan 160 mg, carvedilol 6.25 b.i.d., pantoprazole 40 b.i.d., stool softeners and laxatives Brief hospital course: Patient came with chief complaints of intractable lower abdominal pain. Patient had severe constipation, sigmoid diverticulitis, mass in rectosigmoid junction. Patient had cholelithiasis, history of GERD. patient was given IV meds, IV antibiotics ceftriaxone, metronidazole. Patient underwent exploratory laparotomy with colostomy bag in place. surgery consulted for possible obstruction. surgeon kept patient NPO and NG tube with low intermittent suction. CT abdomen done showed Persistent focal luminal narrowing at the rectosigmoid junction that is concerning for a colon mass, suboptimally evaluated in the absence of enteric contrast. There is a 3.5 cm lobulated hypoenhancing region in the right liver that is concerning for metastatic disease. Moderate to severe distention of the entire colon with stool and gas. Diffuse thickening of the distal sigmoid and the rectum concerning for colitis. ordered tumor markers. gallbladder ultrasound showed Acute cholecystitis. Discontinued NG tube, started on clear liquid diet, liver biopsy to be done outpatient. Patient's diet was advanced to soft mechanical diet. And patient tolerated well. Patient is to follow-up with discharge Clinic on Saturday. Patient understands her discharge plan and has agreed. Patient is stable for discharge With home health for colostomy bag. Patient educated on colostomy bag. General: Patient alert and oriented in person, place and time. Patient following commands. HEENT: Normocephalic, atraumatic, moist mucous membranes Respiratory/pulmonary: Clear lungs bilaterally, vesicular murmurs present in almost all lung santamaria, no associated crackles or wheezes. Cardiovascular: Normal heart sounds S1 and S2 with no associated murmurs Abdomen: Abdomen distended, Hypoactive bowel sounds. Incision covered by dressing on abdomen. colostomy bag showing stool. Extremities: There is no peripheral edema present at the lower extremities. Peripheral Pulses: 3+ Radial (R). 3+ Radial (L). 3+ Dorsalis pedis (R). 3+ Dorsalis pedis(L) Skin: No rashes or pruritus, there is no sacral edema present at this time. Neurological: Intact cranial nerves with no focal neurologic deficits patient is to take: Cefpodoxime 200 mg 1 tablet p.o. b.i.d. metronidazole 500 mg p.o. t.i.d. Operations or Procedures ORDERING PHYSICIAN: BRII SILVA MD PROCEDURE(s): ABPL - CT AB PEL WO CON-NO ORAL OR IV REASON: Diffuse abdominal pain constipation ORDER NUMBER(s): [id number], ACCESSION NUMBER(s): [id number] CLINICAL HISTORY: Diffuse abdominal pain constipation TECHNIQUE: CT of the abdomen and pelvis was performed without IV contrast. This exam was performed according to our departmental dose optimization program. Up-to-date CT equipment and radiation dose reduction techniques are utilized as appropriate. CTDI 5.6 DLP 234 COMPARISON: CT ABD PELVIS WO/W on DOS: 07/02/24 FINDINGS: Abdomen/Pelvis: The spleen, pancreas, adrenal glands, kidneys, and liver are grossly unremarkable. The uterus is absent. The bladder is not well distended therefore not well evaluated. There are numerous small gallstones. The abdominal aorta is normal in course and caliber. There are mild atherosclerotic calcifications. There is no free intraperitoneal air or fluid. There is no enlarged abdominal pelvic lymph node. There is no small small bowel wall thickening or dilatation. There is a moderate amount of stool within the colon. There is a possible stricture at the distal sigmoid colon, best seen on image 54 series 2. There is mild rectosigmoid colon wall thickening. There is colonic diverticulosis. There is a mildly inflamed diverticulum. There is an irregular linear band seen between the distal and mid sigmoid colon. Other: The imaged lower thorax demonstrates breathing changes. No acute osseous abnormality is evident. There are chronic moderate T12 and mild L2 vertebral body compression fractures. Impression: Mild appearing acute sigmoid colon diverticulitis. Moderate amount of stool within the colon with possible stricture within the distal sigmoid colon. Possibilities include stricture from diverticulitis or mass. Further workup recommended. Linear band between the mid and distal sigmoid colon may represent a fibrotic band with a fistula not excluded. Cholelithiasis. ATED BY: FLROENCE LOMELI MD DICTATED DATE/TIME: 02/01/251338 SIGNED BY: FLORENCE LOMELI MD SIGNED DATE/TIME: 02/01/25 133 CC: ORDERING PHYSICIAN: ALONZO HERNANDEZ RESIDENT PROCEDURE(s): GBUS - GALLBLADDER REASON: Cholelithiasis, r/o cholecystitis ORDER NUMBER(s): [id number], ACCESSION NUMBER(s): [id number] ULTRASOUND ABDOMEN, LIMITED RIGHT UPPER QUADRANT: REASON FOR EXAM: Cholelithiasis, r/o cholecystitis TECHNIQUE: Real-time sector scans in the transverse and longitudinal planes were obtained through the right upper quadrant of the abdomen. FINDINGS: The liver is of normal size and contour. There is hepatopetal flow in the portal vein. There is no intrahepatic biliary ductal dilatation. The common bile duct measures 4 mm. There is gallbladder sludge. There are several tiny echogenic gallstones. There is no gallbladder wall thickening. There is a sonographic Haq's sign. The pancreas is obscured by bowel gas. The right kidney measures 8.9 cm. No hydronephrosis or nephrolithiasis is identified. There is no evidence of right renal mass or cyst. The visualized portions of the abdominal aorta demonstrate no evidence of aneurysmal dilatation. The visualized inferior vena cava is unremarkable. There is no free fluid identified in the right upper quadrant. IMPRESSION: Cholelithiasis. Sonographic Haq's sign is present. Correlate clinically for acute cholecystitis. ATED BY: CIRO FLORENTINO MD DICTATED DATE/TIME: 02/01/251741 SIGNED BY: CIRO FLORENTINO MD SIGNED DATE/TIME: 02/01/251741 ORDERING PHYSICIAN: DIDIER HENRIQUEZ RESIDENT PROCEDURE(s): KUB - KUB ABDOMEN SINGLE VIEW REASON: r/o obsturction ORDER NUMBER(s): [id number], ACCESSION NUMBER(s): [id number] Date: 02/04/2025 01:57 PM Examination: XY KUB ABDOMEN SINGLE VIEW History: r/o obsturction Comparison: XY KUB ABDOMEN SINGLE VIEW on DOS: 02/03/25, XY KUB ABDOMEN SINGLE VIEW on DOS: 02/03/25 TECHNIQUE: Frontal views of the abdomen was obtained. FINDINGS: Bowel gas pattern is unremarkable. Large stool burden throughout the colon The lung bases are unremarkable. No acute osseous abnormality identified. Stable compression fracture of L1 is noted unchanged from CT 11 06/28/2024 or MRI of 05/21/2024. IMPRESSION: Nonobstructive bowel gas pattern. Large stool burden throughout the colon Stable compression fracture of L1 and T12. nasogastric tube tip curling in the stomach ATED BY: MAILE HARTLEY MD DICTATED DATE/TIME: 02/04/25 1432 SIGNED BY: MAILE HARTLEY MD SIGNED DATE/TIME: 02/04/25 1432 CC: ORDERING PHYSICIAN: NARESH FRANCE MD PROCEDURE(s): ABPLIV - CT AB PEL WITH IV CON ONLY REASON: colonic stricture vs mass ORDER NUMBER(s): [id number], ACCESSION NUMBER(s): [id number] COMPUTERIZED TOMOGRAPHY ABDOMEN AND PELVIS WITH CONTRAST REASON FOR EXAM: colonic stricture vs mass COMPARISON: CT abdomen/ pelvis without contrast 02/01/2025 ; 03/20/2021. TECHNIQUE: The exam was performed on a Multidetector scanner. Spiral scans were acquired from the diaphragm to the symphysis pubis after administration of IV contrast. 2-D coronal and sagittal reformatted images were provided. Radiation optimization: All CT scans at this facility use at least one of these dose optimization techniques: Automated exposure control mA and/or kV adjustment per patient size (includes targeted exams where dose is matched to clinical indication) or iterative reconstruction. CONTRAST ADMINISTRATION: 80 mL omnipaque 300 intravenously RADIATION DOSE: CTDI: 8.73 mGy DLP: 436.89 mGy-cm FINDINGS: There is minimal dependent atelectasis at the visualized lung bases. There is no pleural effusion. There is no pericardial effusion. There is a small hiatal hernia. There is frothy material in the distal esophagus. There is an enteric tube terminating in the stomach. The spleen is not enlarged. The liver is normal in size and contour. There is hyperdense material along the dependent wall of the gallbladder, likely sludge. There is trace pericholecystic fluid. There is trace fluid in the right pericolic gutter. There is a lobulated hypoenhancing region in the posterior right lobe of the liver measuring 2.8 x 3.5 cm that was not seen on the study dated 03/20/2021 and is concerning for possible metastatic disease. The pancreas is grossly unremarkable. The adrenal glands appear normal. The kidneys enhance symmetrically. No solid renal mass is identified. There is no hydronephrosis of either kidney. There is no abdominal aortic aneurysm. There is extensive atherosclerosis. The urinary bladder is decompressed and is not well evaluated on the current study. The uterus is absent. The ovaries are not seen. There is moderate to severe distention of the entire colon with stool and gas up to 6.1 cm. The appendix is not definitely seen. There is no Pathologic distention of the Small-bowel. There is diffuse mural thickening of the distal sigmoid and the rectum concerning for colitis. There is focal luminal narrowing at the rectosigmoid junction that is concerning for a colon mass, suboptimally evaluated in the absence of enteric contrast. No definite pathologic lymphadenopathy is identified by size criteria. There is no acute osseous abnormality identified. There is chronic appearing mild compression deformity of the superior endplate of T12 and L2, unchanged from prior exams. IMPRESSION: Persistent focal luminal narrowing at the rectosigmoid junction that is concerning for a colon mass, suboptimally evaluated in the absence of enteric contrast. Sigmoidoscopy is recommended. There is a 3.5 cm lobulated hypoenhancing region in the right liver that is concerning for metastatic disease. Moderate to severe distention of the entire colon with stool and gas. Diffuse thickening of the distal sigmoid and the rectum concerning for colitis. ATED BY: CIRO FLORENTINO MD DICTATED DATE/TIME: 02/04/25 153 SIGNED BY: CIRO FLORENTINO MD SIGNED DATE/TIME: 02/04/25 1533 CC: ORDERING PHYSICIAN: NARESH FRANCE MD PROCEDURE(s): KUB - KUB ABDOMEN SINGLE VIEW REASON: CONSTIPATION ORDER NUMBER(s): [id number], ACCESSION NUMBER(s): [id number] Date: 02/05/2025 01:51 PM Examination: XY KUB ABDOMEN SINGLE VIEW History: CONSTIPATION Comparison: XY KUB ABDOMEN SINGLE VIEW on DOS: 02/04/25, XY KUB ABDOMEN SINGLE VIEW on DOS: 02/03/25 TECHNIQUE: Frontal views of the abdomen was obtained. FINDINGS: Bowel gas pattern is unremarkable. Enteric tube in the stomach The lung bases are unremarkable. No acute osseous abnormality identified. IMPRESSION: 1. Dilated: With scattered stool correlate clinical history for constipation. ATED BY: DARIUS ANTUNEZ Jr., DO DICTATED DATE/TIME: 02/05/25 141 SIGNED BY: DARIUS ANTUNEZ Jr., DO SIGNED DATE/TIME: 02/05/25 141 CC: Condition at Discharge: Stable Final Diagnosis/Problems List Acute intractable abdominal pain likely due to colon mass Severe constipation likely due to obstruction Sigmoid diverticulitis Possible stricture/mass in the sigmoid colon Colon Mass liver METS Cholelithiasis H/o GERD Status post exploratory laparotomy With colostomy Discharge Disposition: Home Discharge Instruct/Medications Diet: Consistent carbohydrate Activity: No Restrictions, As Tolerated Follow Up/Referral: Follow up with discharge clinic on saturday follow up with surgery for removal of arvind Medications: as per EMR Scheduled Cefpodoxime Proxetil (Cefpodoxime Proxetil), 1 TAB PO BID Levofloxacin (Levaquin), 500 MG PO DAILY Metronidazole (Flagyl), 1 TAB PO TID Pantoprazole Sodium Sesquihydr (Pantoprazole Sodium), 40 MG PO BID Scheduled PRN Ondansetron (Zofran), 1 TAB PO Q6HR PRN Discharge Statement: "Patient was advised to return to the ER or call 911 if any headaches, dizziness, shortness of breath, chest pain, abdominal pain, bleeding, fevers, or worsening of medical condition. Patient was counseled about treatment plan, medications, possible side effects, patientverbalized understanding. All questions were answered to the best of my ability. This discharge took greater then 30 minutes in planning, reviewing documentation, counseling the patient, and discussing with other team members." ASSESSMENT ASSESSMENT Assessment Acute intractable abd. pain Visit Coding STANDARD RES Billing Provider: SANDRA WATERS MD Date of Service if different f: Feb 12, 2025 Common Visit Codes: [id number] INP/OBS CARE(HIGH) DIDIER HENRIQUEZ RESIDENT Feb 12, 2025 11:20
--- NOTE | 2025-02-12 12:04 | DVHPN2 ---
Progress Note Date Seen: Feb 12, 2025 Resident Creating Document: ANAND TIERNEY RESIDENT Medical Necessity Reason Pt with a Central, PICC or Fol: No Subjective Patient reports: No new complaints Objective vital signs Vital Sign Date Time Temp Pulse Resp B/P (MAP) Pulse Ox O2 Delivery O2 Flow Rate FiO2 02/12/25 08:54 97.5 87 16 151/68 (95) 97 97.5 02/12/25 07:51 Room Air* 0 21 Total Intake and Output 02/11/25 02/11/25 02/12/25 15:00 23:00 07:00 Intake Total 100 ml 760 ml 500 ml Output Total 800 ml Balance 100 ml -40 ml 500 ml medications Current Medications Medications Dose Ordered Sig/Juan Route Start Time Stop Time Status Last Admin Dose Admin Acetaminophen 650 mg Q6HP PRN PO 02/01/25 16:15 02/11/25 12:47 650 MG Ondansetron HCl 4 mg Q6HPRN PRN IV 02/03/25 15:15 02/04/25 06:11 4 MG Pantoprazole Sodium 40 mg DAILY IV 02/05/25 10:00 02/12/25 08:35 40 MG Amino Acids 0 ml @ 0 mls/hr PER PHARMACY IV 02/06/25 11:45 Cancel Diagnostic Test (Pha) 1 strip Q6HR 02/06/25 12:00 02/12/25 12:00 1 STRIP Insulin Human Regular FOLLOW SLIDING SCALE Q6HR SC 02/06/25 12:00 02/10/25 12:00 2 UNITS Dextrose 50 ml UD IV 02/06/25 11:45 Amino Acids/ Electrolytes/ Dextrose 1,000 ml @ 41 mls/hr DAILY@2200 IV 02/06/25 22:00 Cancel Piperacillin Sod/ Tazobactam Sod 100 ml @ 25 mls/hr Q8HR IV 02/07/25 14:00 02/12/25 05:42 25 MLS/HR Enoxaparin Sodium 30 mg DAILY SC 02/08/25 10:00 02/12/25 08:37 30 MG Ketorolac Tromethamine 15 mg Q6HPRN PRN IV 02/07/25 14:30 02/12/25 14:29 02/12/25 03:39 15 MG Fat Emulsion Intravenous 100 ml/Sodium Acetate 20 meq/Potassium Phosphate 22 meq/ Calcium Gluconate 4.65 meq/ Magnesium Sulfate 4 meq/ Multivitamins 10 ml/Chromium/ Copper/Manganese/ Zinc 1 ml/Amino Acids/Dextrose/ Purified Water 1,587 ml @ 66 mls/hr Q24H3M IV 02/08/25 22:00 02/09/25 21:59 Cancel Valsartan 120 mg DAILY PO 02/11/25 10:00 02/12/25 08:34 120 MG Examination Patient lying in bed, in no acute distress General: Well-built, afebrile, palor, mucosae are moist Cardiovascular: Regular S1 and S2. No murmurs, gallops or rubs. No JVD elevation. No pedal edema Respiratory: Normal B/L air entry on room air. Clear lung sounds on auscultation Abdomen: Soft nontender and nondistended, normoactive bowel sounds, no rebound tenderness, no organomegaly, no masses. Colostomy seen draining dark brown stool Genitourinary: Deferred MSK/skin: Mobilizes 4 limbs. Skin is dry and warm Neurological: No motor, no sensitive deficits, normal speech. Pupils are isocoric and reactive. Psych/Mental Status: A/Ox3 laboratory and microbiology Laboratory Tests 02/11/25 04:00 02/10/25 05:16 Test 02/11/25 04:00 Range/Units Serum Glucose 94 74-106 mg/dL Microbiology Date/Time Source Procedure Growth Status 02/01/25 17:27 Nose MRSA Screen - Final Complete Labs and/or images reviewed: Labs reviewed by me, Image(s) reviewed by me Problem List/Assessment/Plan Problem List/Assessment/Plan Acute sigmoid colon diverticulitis-mild ? Sigmoid stricture. ? Sigmoid mass Large bowl obstruction secondary to above R/O acute cholecystitis Constipation Cholelithiasis L1/T12 compression fracture-stable KUB today shows nonobstructive bowel gas pattern. Large stool burden. Patient had multiple sigmoidoscopies in the recent past, which were unremarkable according to the patient. CT ABD Persistent focal luminal narrowing at the rectosigmoid junction that is concerning for a colon mass, suboptimally evaluated in the absence of enteric contrast. Sigmoidoscopy is recommended. There is a 3.5 cm lobulated hypoenhancing region in the right liver that is concerning for metastatic disease. Moderate to severe distention of the entire colon with stool and gas. Diffuse thickening of the distal sigmoid and the rectum concerning for colitis. Plan: Tolerating mechanical soft diet. Stable to be discharged. Status post ex lap, No biopsies were taken intraoperatively. IR to do liver biopsy as outpatient. Outpatient follow up with GI for diagnostic colonoscopy within the next 2-4 weeks CEA level elevated to 10.84 suggestive of sigmoid malignancy Advanced diet as tolerated Continue Protonix 40 mg IV daily No masses or stool felt on rectal exam. Continue IV antibiotics Per daughter, patient does not take fibers or eats fruits vegetables. We will continue to follow up Plan discussed with patient, daughter in which all questions have been answered Case discussed with Dr. Sinclair Plan discussed with: Patient Dietary Evaluation Review Comments: TPN Adjustment Recommendation Goal: TPN should meet 75-100% of patients nutritional needs. Current Status: Protein: 112% of needs (exceeds requirement) Energy: 63% of needs (below requirement) Recommendation: Adjust TPN per pharmacy to deliver: Protein: 70-80 g Energy: 6399-7307 kcal Rationale: Current formula oversupplies protein and undersupplies energy. Adjustment will better align with patients estimated needs and prevent unnecessary nitrogen load. Expected Outcomes/Goals: Recovered GI function, ANAND TIERNEY RESIDENT Feb 12, 2025 12:04
[2025-02-12 12:20] VITALS: BP 151/60; TEMP 36.4
[2025-02-12 12:35] VITALS: BP 131/68; PULSE 81; RESP 16; TEMP 96.7; O2SAT 96
[2025-02-12 16:55] VITALS: BP 166/74; PULSE 85; RESP 16; TEMP 96.9; O2SAT 96
[2025-02-12] MEDS ORDERED: VALS1TAB57 PO (17:00)
[2025-02-13] MEDS ORDERED: ENOXAPARIN SOD 40 MG/0.4 ML SYRINGE SC SCH (10:00)
--- NOTE | 2025-02-18 14:02 | DVHPN2 ---
Date of Service: Feb 11, 2025 Billing Provider: SANDRA WATERS MD Common Visit Codes: [id number] INP/OBS CARE(HIGH) SANDRA WATERS MD Feb 18, 2025 14:02
== END 2025-02-12 17:26 | disposition home or self-care (01) | DRG 330 ==
LOC: ER 10:54 → OVERFLOW 15:29 → WEST WING 21:52
PROVIDERS: ADMIT Student in an Organized Health Care Education/Training Program; ATTEND Student in an Organized Health Care Education/Training Program
PROC: 0D9670Z Drainage of Stomach with Drainage Device, Via Natural or Artificial Opening (ICD-10-PCS; principal; 2025-02-04)
PROC: 0D1N0Z4 Bypass Sigmoid Colon to Cutaneous, Open Approach (ICD-10-PCS; 2025-02-05)
DX: K63.89 Other specified diseases of intestine (principal); K57.32 Diverticulitis of large intestine without perforation or abscess without bleeding; K80.00 Calculus of gallbladder with acute cholecystitis without obstruction; I10 Essential (primary) hypertension; M48.54XA Collapsed vertebra, not elsewhere classified, thoracic region, initial encounter for fracture; M48.56XA Collapsed vertebra, not elsewhere classified, lumbar region, initial encounter for fracture; R19.09 Other intra-abdominal and pelvic swelling, mass and lump; K56.699 Other intestinal obstruction unspecified as to partial versus complete obstruction; K59.00 Constipation, unspecified; K21.9 Gastro-esophageal reflux disease without esophagitis; Z90.49 Acquired absence of other specified parts of digestive tract; Z82.49 Family history of ischemic heart disease and other diseases of the circulatory system
CPT/HCPCS: 36415; 71045; 74018; 74176; 74177; 76705; 80048; 80053; 80076; 81001; 82040; 82105; 82378; 82962; 83735; 84100; 84443; 84478; 85025; 85610; 85652; 85730; 86141; 86301; 86304; 86850; 86900; 86901; 87081; 96365; 97163; G0378; J0131; J0330; J0690; J1815; J1885; J2003; J2405; J2470; J2543; J2704; J3480; J3490; J7060; J7131

== ENCOUNTER 2025-03-01 11:57 | Inpatient (IN) | payer MEDICARE, MEDICAID ==
[~2025-03-01] VITALS: Ht 149.9 cm; Wt 48.2 kg
[~2025-03-01 11:57] MED LIST changes: +CEFP200T15 PO; -LEVO500T31 PO; +METR-344 PO; -ONDA-144 PO; -PANT40T PO; +VALS1TAB57 PO
[2025-03-01] MEDS: ONDANSETRON HCL 4 MG/2 ML VIAL IV ONE (13:20)
[2025-03-01] MEDS: MORPHINE SULFATE 4 MG/ML SYR/VIAL IV ONE (13:21)
[2025-03-01] MEDS: SODIUM CHLORIDE 0.9% 500 ML IVB ONE (13:22)
--- NOTE | 2025-03-01 13:32 | ED.PDOC ---
History of Present Illness HPI Comments 84 y/o Botswanan speaking F is [id number] daughter for c/c of nonradiating, right sided abdominal pain. Per daughter, patient endorses on 3x day history of, progressively, worsening and constant pain following initial, unprovoked and atraumatic onset. Pain radiates to her back. Associated nausea, poor appetite and fluid intake, and excessive burping. No reported vomiting, diarrhea, fever, chills, or further acute symptoms. Recent history of Colostomy bag placement at [facility] for diverticulitis admission 2x weeks ago. Patient's lab work performed then also revealed elevated 'cancer markers,' with patient having an upcoming cancer biopsy at [facility] in 03/05/26. Additional history for previous stroke in 2004, HLD, HTN, and partial hysterectomy. Chief Complaint: Abdominal Pain Time Seen by MD: 12:45 Reviewed Notes: Nurses Notes, Medications, Allergies Allergies: Coded Allergies: No Known Drug Allergy (Verified Allergy, Unknown, 03/20/21) Home Meds Active Scripts Valsartan (Valsartan) 80 Mg Tab, 160 MG PO DAILY for 30 Days, #60 TAB 0 Refills Prov:ALONZO HERNANDEZ RESIDENT 02/12/25 Metronidazole (Flagyl) 500 Mg Tab, 1 TAB PO TID, #30 TAB Prov:ALEXANDER MOSER RESIDENT 02/03/25 Cefpodoxime Proxetil (Cefpodoxime Proxetil) 200 Mg Tab, 1 TAB PO BID, #20 TAB Prov:ALEXANDER MOSER RESIDENT 02/03/25 Information Source: Patient, Relative (Child) Mode of Arrival: Ambulatory Severity: Moderate Timing: Days Duration: Since onset Prehospital treatment: None Past Medical History PAST MEDICAL HISTORY: GERD, High Lipids, HTN, UTI'S Past Medical History (Other): diverticulitis Surgical History: Appendectomy, Hysterectomy (partial ) [employer] History: Denies all [employer] Hx Family History Family History: Reviewed,noncontributory to illness, Unknown Social History Smoker: Non-Smoker Alcohol: Denies ETOH Use Drugs: Denies Drug Use Lives In: Home Constitutional: denies: chills, diaphoresis, fatigue, fever, malaise, sweats, weakness, others EENTM: denies: blurred vision, double vision, ear bleeding, ear discharge, ear drainage, ear pain, ear ringing, eye pain, eye redness, hearing loss, mouth pain, mouth swelling, nasal discharge, nose bleeding, nose congestion, nose pain, photophobia, tearing, throat pain, throat swelling, voice changes, others Respiratory: denies: cough, hemoptysis, orthopnea, SOB at rest, shortness of breath, SOB with excertion, stridor, wheezing, others Cardiovascular: denies: chest pain, dizzy spells, diaphoresis, Dyspnea on exertion, edema, irregular heart beat, left arm pain, lightheadedness, palpitations, PND, syncope, others Gastrointestinal: reports: abdominal pain, diarrhea, nausea, poor appetite, poor fluid intake, others (excessive burping ); denies: abdomen distended, blood streaked bowels, constipated, dysphagia, difficulty swallowing, hematemesis, melena, rectal bleeding, rectal pain, vomiting Genitourinary: denies: abnormal vagina bleeding, burning, dyspareunia, dysuria, flank pain, frequency, hematuria, incontinence, pain, , vagina discharge, urgency, others Neurological: denies: dizziness, fainting, headache, left sided numbness, left sided weakness, numbness, paresthesia, pre-existing deficit, right sided numbness, right sided weakness, seizure, speech problems, tingling, tremors, weakness, others Musculoskeletal: denies: back pain, gout, joint pain, joint swelling, muscle pain, muscle stiffness, neck pain, others Integumetry: denies: bruises, change in color, change in hair/nails, dryness, laceration, lesions, lumps, rash, wounds, others Allergic/Immunocompromised: denies: Difficulty Healing, Frequent Infections, Hives, Itching, others Hematologic/Lymphatic: denies: anemia, blood clots, easy bleeding, easy bruising, swollen glands, others Endocrine: denies: excessive hunger, excessive sweating, excessive thirst, excessive urination, flushing, intolerance to cold, intolerance to heat, unexpl ained weight gain, unexplained weight loss, others Psychiatric: denies: anxiety, bipolar disorder, depression, hopeless, panic disorder, schizophrenia, sleepless, suicidal, others All Other Systems: Reviewed and Negative Physical Exam General Appearance: Moderate Distress HEENT: Normal ENT Inspection, Pharynx Normal, TMs Normal Neck: Full Range of Motion, Non-Tender, Normal, Normal Inspection Respiratory: Chest Non-Tender, Lungs Clear, No Accessory Muscle Use, No Respiratory Distress, Normal Breath Sounds Cardiovascular: No Edema, No JVD, No Murmur, No Gallop, Normal Peripheral Pulses, Regular Rate/Rhythm Breast Exam: Deferred Gastrointestinal: Epigastric, No Organomegaly, No Pulsatile Mass, Normal Bowel Sounds, Soft, Tenderness Genitalia: Deferred Pelvic: Deferred Rectal: Deferred Extremities: No calf tenderness, Normal capillary refill, Normal inspection, Normal range of motion, Non-tender, No pedal edema Musculoskeletal : Apperance: Normal Neurologic: Alert, art museum aide II-XII nml as Tested, No Motor Deficits, Normal Affect, Normal Mood, No Sensory Deficits Cerebellar Function: Normal Reflexes: Normal Skin: Dry, Normal Color, Warm Lymphatic: No Adenopathy Was a procedure done? Was a procedure done?: No Differential Dx Considerations may include: Gastritis, gastroenteritis, GERD, PUD, cholelithiasis, cholecystitis, nephrolithiasis, pyelonephritis, cystitis, among others X-Ray, Labs, Meds, VS Vital Signs Date Time Temp Pulse Resp B/P (MAP) Pulse Ox O2 Delivery O2 Flow Rate FiO2 03/01/25 14:48 99.3 109 20 148/52 (84) 95 99.3 03/01/25 13:51 89 12 154/72 03/01/25 13:21 86 12 154/72 03/01/25 12:04 98.4 120 17 132/72 96 98.4 Lab Test 03/01/25 14:02 Range/Units White Blood Count 13.6 H 4.4-10.8 10^3/uL Red Blood Count 3.71 L 4.0-5.20 10^6/uL Hemoglobin 11.7 L 12.2-16.2 g/dL Hematocrit 34.1 L 36.0-46.0 % Mean Corpuscular Volume 91.8 80.0-100.0 fL Mean Corpuscular Hemoglobin 31.5 28.0-32.0 pg Mean Corpuscular Hemoglobin Concent 34.3 32.0-36.0 g/dL Red Cell Distribution Width 14.4 H 11.8-14.3 % Platelet Count 344 140-450 10^3/uL Mean Platelet Volume 7.4 6.9-10.8 fL Neutrophils (%) (Auto) 80.3 H 37.0-80.0 % Lymphocytes (%) (Auto) 5.5 L 10.0-50.0 % Monocytes (%) (Auto) 13.2 H 0.0-12.0 % Eosinophils (%) (Auto) 0.2 0.0-7.0 % Basophils (%) (Auto) 0.8 0.0-2.0 % Neutrophils # (Auto) 11.0 H 1.6-8.6 10 ^3/uL Lymphocytes # (Auto) 0.7 0.4-5.4 10 ^3/uL Monocytes # (Auto) 1.8 H 0-1.3 10 ^3/uL Eosinophils # (Auto) 0 0-0.8 10 ^3/uL Basophils # (Auto) 0.1 0-0.2 10 ^3/uL Nucleated Red Blood Cells 0.0 % Sodium Level 135 L 136-145 mmol/L Potassium Level 4.7 3.5-5.1 mmol/L Chloride Level 102 98-107 mmol/L Carbon Dioxide Level 28 20-31 mmol/L Anion Gap 5 5-15 Blood Urea Nitrogen 7 L 9-23 mg/dL Creatinine 0.60 0.550-1.02 mg/dL Glomerular Filtration Rate Calc 87 >90 mL/min BUN/Creatinine Ratio 11.7 10.0-20.0 Serum Glucose 130 H 74-106 mg/dL Calcium Level 9.0 8.7-10.4 mg/dL Total Bilirubin 1.2 H 0.2-1.0 mg/dL Aspartate Amino Transferase (AST) 59 H 13-40 U/L Alanine Aminotransferase (ALT) 59 H 7-40 U/L Alkaline Phosphatase 472 H 46-116 U/L Total Protein 6.8 5.7-8.2 g/dL Albumin 3.6 3.2-4.8 g/dL Lipase 31 12-53 U/L Current Medications Medications (Trade) Dose Ordered Sig/Juan Route Start Time Stop Time Status Last Admin Ondansetron HCl (Zofran) 4 mg ONCE ONCE IV 03/01/25 13:00 03/01/25 13:01 DC 03/01/25 13:20 Morphine Sulfate 2 mg ONCE ONCE IV 03/01/25 13:00 03/01/25 13:01 DC 03/01/25 13:21 Sodium Chloride 500 ml @ 500 mls/hr Q1H ONCE IVB 03/01/25 13:00 03/01/25 13:59 DC 03/01/25 13:22 PROCEDURE(s): GBUS - GALLBLADDER IMPRESSION: Cholelithiasis and mild gallbladder wall thickening. IV Hep-Lock was established The patient was given morphine 2 mg IV push for the pain The patient is being given Zofran 4 mg IV push for the nausea The patient was bolused with normal saline. The liver enzymes are somewhat elevated. The total bilirubin is 1.2 The CBC shows an elevated white blood cell count of 13.6 but other results show mild anemia The patient is being admitted at this time The patient understands and agrees with the management Images Reviewed?: Images reviewed and evaluated by me Time of 1ST Reevaluation: 13:20 Reevaluation 1ST: Unchanged Patient Education/Counseling: Diagnosis, Treatment, Prognosis, Other (need for hospital admission ) Family Education/Counseling: Diagnosis, Treatment, Prognosis, Other (need for hospital admission ) SEPSIS Sepsis Screen Date sepsis recognized/suspect: Mar 01, 2025 Time Sepsis recognized/suspect: 1207 Recent Procedure: Yes (02/05/25) On Antibiotic Therapy: No Respiratory Rate >20: No Heart Rate >90: Yes Temp<36 C (96.8 F) or >38.3 C: No SBP <90 or MAP <65 mmHG: No New Acute Mental Status Change: No Is the patient on CPAP, BIPAP,: No Physician Orders Urinalysis (03/01/25 12:49) Heplock Iv (03/01/25 12:49) Gallbladder (03/01/25 12:49) Vital Signs Date Time Temp Pulse Resp B/P (MAP) Pulse Ox O2 Delivery O2 Flow Rate FiO2 03/01/25 14:48 99.3 109 20 148/52 (84) 95 99.3 03/01/25 13:51 89 12 154/72 03/01/25 13:21 86 12 154/72 03/01/25 12:04 98.4 120 17 132/72 96 98.4 Laboratory Tests Test 03/01/25 14:02 White Blood Count 13.6 10^3/uL (4.4-10.8) H Medications Medications Dose Ordered Sig/Juan Route Start Time Stop Time Status Last Admin Dose Admin Morphine Sulfate 2 mg ONCE ONCE IV 03/01/25 13:00 03/01/25 13:01 DC 03/01/25 13:21 Ondansetron HCl 4 mg ONCE ONCE IV 03/01/25 13:00 03/01/25 13:01 DC 03/01/25 13:20 Sodium Chloride 500 ml @ 500 mls/hr Q1H ONCE IVB 03/01/25 13:00 03/01/25 13:59 DC 03/01/25 13:22 Departure 1 Departure Time of Disposition: 16:14 Impression: Primary Impression: Intractable abdominal pain Additional Impression: Cholelithiasis Qualified Codes: K80.20 - Calculus of gallbladder without cholecystitis without obstruction Disposition: ADMITTED INPATIENT Admit to: Med Surg Condition: Fair Critical Care Note Critical Care Time?: No Stability Stability form required: Yes Unstable for transfer: ED Physician Assesment (Clinical assesment) Heart Score Heart Score: Heart Score Response (Comments) Value History N/A 0 EKG N/A 0 Age N/A 0 Risk Factors N/A 0 Troponin N/A 0 Total 0 I personally scribed for NACHO HUYNH MD ([email or web address]) on 03/01/25 at 13:32. Electronically submitted by Hao Jeffrey ([email or web address]). I personally scribed for NACHO HUYNH MD ([email or web address]) on 03/01/25 at 16:11. Electronically submitted by Hao Jeffrey ([email or web address]). I personally scribed for NACHO HUYNH MD ([email or web address]) on 03/01/25 at 16:12. Electronically submitted by Hao Jeffrey ([email or web address]). NACHO HUYNH MD Mar 01, 2025 13:32
--- NOTE | 2025-03-01 14:13 | DVH ---
INDICATION: pain TECHNIQUE: Multiple real-time sonographic images were obtained of the right upper quadrant. COMPARISON: US GALLBLADDER on DOS: 02/04/25, US GALLBLADDER on DOS: 02/01/25 FINDINGS: The liver demonstrates homogeneous echotexture without focal mass lesions. The liver measures 15.7 cm. There is no intrahepatic or extrahepatic ductal dilatation. The common duct measures 0.4 cm. Cholelithiasis. The gallbladder wall measures 0.5 cm and is mildly thickened. The right kidney measures 9.6 cm. The right kidney is normal in contour, size, and shape. The echogenicity is normal. There is no hydronephrosis. The pancreas is not well visualized due to overlying bowel gas. IMPRESSION: Cholelithiasis and mild gallbladder wall thickening.
[2025-03-01 14:15] LABS: Hematocrit 34.1 % (36.0-46.0); Hemoglobin 11.7 g/dL (12.2-16.2); Mean Corpuscular Hemoglobin 31.5 pg (28.0-32.0); Mean Corpuscular Volume 91.8 fL (80.0-100.0); Nucleated Red Blood Cells % 0.0 %
[2025-03-01 14:31] LABS: Albumin 3.6 g/dL (3.2-4.8); Anion Gap 5 (5-15); BUN/Creatinine Ratio 11.7 (10.0-20.0); Calcium 9.0 mg/dL (8.7-10.4); Carbon Dioxide 28 mmol/L (20-31); Chloride 102 mmol/L (98-107); Lipase 31 U/L (12-53); Potassium 4.7 mmol/L (3.5-5.1); Total Protein 6.8 g/dL (5.7-8.2)
[2025-03-01 14:33] LABS: Alanine Aminotransferase 59 U/L (7-40); Alkaline Phosphatase 472 U/L (46-116); Bilirubin, Total 1.2 mg/dL (0.2-1.0); Blood Urea Nitrogen 7 mg/dL (9-23); Glucose 130 mg/dL (74-106); Sodium 135 mmol/L (136-145)
[2025-03-01] MEDS ORDERED: MORPHINE SULFATE INJ 2 MG/ml SYRG IV PRN (18:00)
[2025-03-01] MEDS ORDERED: NITROGLYCERIN 0.4 MG SL TAB SL PRN (18:00)
[2025-03-01] MEDS ORDERED: ONDANSETRON HCL 4 MG/2 ML VIAL IV PRN (18:00)
[2025-03-01] MEDS ORDERED: ACETAMINOPHEN 325 MG TAB PO PRN (18:00)
--- NOTE | 2025-03-01 18:20 | DVHHPRES ---
History of Present Illness Resident Creating Document: DEBRA NORTH RESIDENT History of Present Illness Jairo is a 84 y o f with a PMH of ? colonic mass with a colostomy bag presents with RUQ and upper right back pain that may be related to gallbladder issues. The patient describes experiencing significant pain in the upper right back area that radiates all the way to the back, accompanied by substantial gas and chest pain. The pain is described as hurting and gas-like in nature. Recent dietary intake includes avocados, bread, and tamales. The patient has a history of surgery and mentions having a colostomy, though reports no current issues with the colostomy itself. Patient denies nausea, vomiting, diarrhea, sick contacts, recent travel and other associated symptoms. Medical History - History of gallbladder issues with sluggish bile - ? colonic mass Surgical History - Colostomy, no complications noted - Previous surgery Social History - lives with the family. Denies smoking, alcohol and other drug abuse - Diet: Reports eating avocados, bread, and tamales Allergies - no known allergies Review of Systems Gastrointestinal: Positive for RUQ and upper right back pain, Rest of ROS is negative Review of Systems Allergies: Coded Allergies: No Known Drug Allergy (Verified Allergy, Unknown, 03/20/21) Medications Current Medications Medications Dose Ordered Sig/Juan Route Start Time Stop Time Status Last Admin Dose Admin Sodium Chloride 10 ml Q8HR IV 03/01/25 22:00 Sodium Chloride 1,000 ml @ 60 mls/hr [id number] IV 03/01/25 18:00 Acetaminophen/ Hydrocodone Bitart 1 tab Q4HP PRN PO 03/01/25 18:00 Ondansetron HCl 4 mg Q4HP PRN IV 03/01/25 18:00 Enoxaparin Sodium 40 mg DAILY SC 03/02/25 10:00 UNV Acetaminophen 650 mg Q6HP PRN PO 03/01/25 18:00 Nitroglycerin 0.4 mg Q5MINP PRN SL 03/01/25 18:00 Morphine Sulfate 2 mg Q30M PRN IV 03/01/25 18:00 Ceftriaxone Sodium 50 ml @ 100 mls/hr DAILY@09 IV 03/02/25 09:00 Metronidazole 100 ml @ 100 mls/hr Q8HR IV 03/01/25 22:00 Pantoprazole Sodium 40 mg DAILY IV 03/01/25 18:30 UNV Exam Vital Signs Vital Signs Date Time Temp Pulse Resp B/P (MAP) Pulse Ox O2 Delivery O2 Flow Rate FiO2 03/01/25 14:48 99.3 109 20 148/52 (84) 95 99.3 Exam Pt is lying on bed General Appearance: Alert, Oriented X3, Cooperative, Not in acute distress HEENT: Atraumatic, Mucous membranes moist/pink Respiratory: Clear to auscultation, Normal air movement, No added sounds Cardiovascular: Regular rate, Normal S1, Normal S2, No murmurs Abdominal: colostomy bag intact, right upper quadrant tenderness Extremities: No edema, Normal pulses, No tenderness/swelling Skin: No Significant rash, except past surgical scars Neuro: Normal speech, sensorimotor deficits none Psych/Mental Status: Mental status NL, Mood NL Nurse was there as power sweeper operator during examination Labs/Xrays Labs Test 03/01/25 14:02 Range/Units White Blood Count 13.6 H 4.4-10.8 10^3/uL Red Blood Count 3.71 L 4.0-5.20 10^6/uL Hemoglobin 11.7 L 12.2-16.2 g/dL Hematocrit 34.1 L 36.0-46.0 % Mean Corpuscular Volume 91.8 80.0-100.0 fL Mean Corpuscular Hemoglobin 31.5 28.0-32.0 pg Mean Corpuscular Hemoglobin Concent 34.3 32.0-36.0 g/dL Red Cell Distribution Width 14.4 H 11.8-14.3 % Platelet Count 344 140-450 10^3/uL Mean Platelet Volume 7.4 6.9-10.8 fL Neutrophils (%) (Auto) 80.3 H 37.0-80.0 % Lymphocytes (%) (Auto) 5.5 L 10.0-50.0 % Monocytes (%) (Auto) 13.2 H 0.0-12.0 % Eosinophils (%) (Auto) 0.2 0.0-7.0 % Basophils (%) (Auto) 0.8 0.0-2.0 % Neutrophils # (Auto) 11.0 H 1.6-8.6 10 ^3/uL Lymphocytes # (Auto) 0.7 0.4-5.4 10 ^3/uL Monocytes # (Auto) 1.8 H 0-1.3 10 ^3/uL Eosinophils # (Auto) 0 0-0.8 10 ^3/uL Basophils # (Auto) 0.1 0-0.2 10 ^3/uL Nucleated Red Blood Cells 0.0 % Sodium Level 135 L 136-145 mmol/L Potassium Level 4.7 3.5-5.1 mmol/L Chloride Level 102 98-107 mmol/L Carbon Dioxide Level 28 20-31 mmol/L Anion Gap 5 5-15 Blood Urea Nitrogen 7 L 9-23 mg/dL Creatinine 0.60 0.550-1.02 mg/dL Glomerular Filtration Rate Calc 87 >90 mL/min BUN/Creatinine Ratio 11.7 10.0-20.0 Serum Glucose 130 H 74-106 mg/dL Calcium Level 9.0 8.7-10.4 mg/dL Total Bilirubin 1.2 H 0.2-1.0 mg/dL Aspartate Amino Transferase (AST) 59 H 13-40 U/L Alanine Aminotransferase (ALT) 59 H 7-40 U/L Alkaline Phosphatase 472 H 46-116 U/L Total Protein 6.8 5.7-8.2 g/dL Albumin 3.6 3.2-4.8 g/dL Lipase 31 12-53 U/L SEPSIS Sepsis Screen Date sepsis recognized/suspect: Mar 01, 2025 Time Sepsis recognized/suspect: 1207 Recent Procedure: Yes (02/05/25) On Antibiotic Therapy: No Respiratory Rate >20: No Heart Rate >90: Yes Temp<36 C (96.8 F) or >38.3 C: No SBP <90 or MAP <65 mmHG: No New Acute Mental Status Change: No Is the patient on CPAP, BIPAP,: No Physician Orders Urinalysis (03/01/25 12:49) Heplock Iv (03/01/25 12:49) Gallbladder (03/01/25 12:49) Admit (03/01/25 17:48) Allergies (03/01/25 17:48) Code Status (03/01/25 17:48) Sodium Chloride Lock (Saline Lock Ns) (03/01/25 22:00) Sodium Chloride 0.9% (03/01/25 18:00) Hydrocodone-Acet 5/325mg Tab ([place] 5/32 (03/01/25 18:00) Ondansetron Hcl (Zofran) (03/01/25 18:00) Enoxaparin Sodium (Lovenox) (03/02/25 10:00) Complete Blood Count (03/02/25 04:00) Comprehensive Metabolic Panel (03/02/25 04:00) Npo (Nothing By Mouth) Diet (03/01/25 Dinner) Condition: Fair (03/01/25 17:48) Acetaminophen Tablet (Tylenol Tablet) (03/01/25 18:00) Nitroglycerin Sublingual (Ntrostat Subli (03/01/25 18:00) Morphine Sulfate Injection (03/01/25 18:00) Oxygen By Nasal Cannula (03/01/25 17:48) Stat Ekg For Chest Pain (03/01/25 17:48) Notify Of Changes From Base (03/01/25 17:48) Math Specialist For 24 Hours (03/01/25 17:48) Emergency Dysrhythmia Protocol (03/01/25 17:48) Rhythm Strips Once Every Shift (03/01/25 17:48) Chest Xray 1 View (03/01/25 17:48) * Surgical Consult (03/01/25 ) PTPTT (03/01/25 17:48) Magnesium (03/01/25 17:48) B-Type Natriuretic Peptide (03/01/25 17:48) Lactic Acid W/ Reflex Order (03/01/25 17:48) Ceftriaxone 1gm/50ml (Rocephin) (03/02/25 09:00) Ceftriaxone 1gm/50ml (Rocephin) (03/01/25 18:00) Metronidazole 500mg/100ml (Flagyl 500mg/ (03/01/25 22:00) Pantoprazole (Protonix) (03/01/25 18:30) Blood Culture (03/01/25 18:17) Vital Signs Date Time Temp Pulse Resp B/P (MAP) Pulse Ox O2 Delivery O2 Flow Rate FiO2 03/01/25 14:48 99.3 109 20 148/52 (84) 95 99.3 03/01/25 13:51 89 12 154/72 03/01/25 13:21 86 12 154/72 03/01/25 12:04 98.4 120 17 132/72 96 98.4 Laboratory Tests Test 03/01/25 14:02 White Blood Count 13.6 10^3/uL (4.4-10.8) H Medications Medications Dose Ordered Sig/Juan Route Start Time Stop Time Status Last Admin Dose Admin Morphine Sulfate 2 mg ONCE ONCE IV 03/01/25 13:00 03/01/25 13:01 DC 03/01/25 13:21 2 MG Ondansetron HCl 4 mg ONCE ONCE IV 03/01/25 13:00 03/01/25 13:01 DC 03/01/25 13:20 4 MG Sodium Chloride 500 ml @ 500 mls/hr Q1H ONCE IVB 03/01/25 13:00 03/01/25 13:59 DC 03/01/25 13:22 500 MLS/HR Assessment/Plan Assessment/Plan Jairo presents with RUQ and upper right back pain possibly related to gallbladder issues, associated with gas and chest pain. ? Sepsis likely due to below Symptomatic cholelithiasis Possible acute cholecystitis ? colonic mass status post colostomy bag- outpatient follow up at [facility] Transaminitis likely due to above Plan: - admit to [facility] - GB ultrasound showed cholelithiasis and mild gallbladder wall thickening - symptomatic management - Rocephin and Flagyl - surgical consult - IV fluids GERD - Protonix PUD PPX Protonix DVT PPX Lovenox NPO Goals of care discussed with the patient for more than 27 minutes: Full code status Case discussed with Dr. Acosta, patient and nurse Plan discussed with: Patient My Orders Orders - DEBRA NORTH RESIDENT Procedure Category Date Status Time Admit ADMIT 03/01/25 Transmitted 17:48 Allergies TIFFANIE 03/01/25 In Process 17:48 Code Status CODE 03/01/25 Transmitted 17:48 Sodium Chloride Lock PHA 03/01/25 In Process (Saline Lock Ns) 22:00 Sodium Chloride 0.9% PHA 03/01/25 In Process 18:00 Hydrocodone-Acet PHA 03/01/25 In Process 5/325mg Tab ([place] 18:00 Ondansetron Hcl PHA 03/01/25 In Process (Zofran) 18:00 Enoxaparin Sodium PHA 03/02/25 Logged (Lovenox) 10:00 Complete Blood Count LAB 03/02/25 Verified 04:00 Comprehensive LAB 03/02/25 Verified Metabolic Panel 04:00 Npo (Nothing By DIET 03/01/25 Transmitted Mouth) Diet Dinner Condition: Fair TIFFANIE 03/01/25 In Process 17:48 Acetaminophen Tablet PHA 03/01/25 In Process (Tylenol Tablet) 18:00 Nitroglycerin PHA 03/01/25 In Process Sublingual (Ntrostat 18:00 Morphine Sulfate PHA 03/01/25 In Process Injection 18:00 Oxygen By Nasal RT 03/01/25 Transmitted Cannula 17:48 Stat Ekg For Chest TIFFANIE 03/01/25 In Process Pain 17:48 Notify Md Of Changes TIFFANIE 03/01/25 In Process From Base 17:48 Math Specialist For TIFFANIE 03/01/25 In Process 24 Hours 17:48 Emergency Dysrhythmia TIFFANIE 03/01/25 In Process Protocol 17:48 Rhythm Strips Once TIFFANIE 03/01/25 In Process Every Shift 17:48 Chest Xray 1 View XY 03/01/25 Taken 17:48 * Surgical Consult CONS 03/01/25 Transmitted PTPTT LAB 03/01/25 Logged 17:48 Magnesium LAB 03/01/25 In Process 17:48 B-Type Natriuretic LAB 03/01/25 In Process Peptide 17:48 Lactic Acid W/ Reflex LAB 03/01/25 Logged Order 17:48 Ceftriaxone 1gm/50ml PHA 03/02/25 In Process (Rocephin) 09:00 Ceftriaxone 1gm/50ml PHA 03/01/25 In Process (Rocephin) 18:00 Metronidazole PHA 03/01/25 In Process 500mg/100ml (Flagyl 22:00 Pantoprazole PHA 03/01/25 Logged (Protonix) 18:30 Blood Culture KEKE 03/01/25 Transmitted 18:17 Visit Coding STANDARD RES Billing Provider: MADIE ACOSTA MD Date of Service if different f: Mar 01, 2025 Common Visit Codes: 25046-JVSBDQD INP/OBS CARE (HIGH) Secondary Visit Codes: 40994-PSADDXYT CARE PLAN 30 MINUTES DEBRA NORTH RESIDENT Mar 01, 2025 18:20
--- NOTE | 2025-03-01 18:27 | DVH ---
CLINICAL HISTORY: pre op TECHNIQUE: Single view of the chest was obtained. COMPARISON: XY CHEST XRAY 1 VIEW on DOS: 02/07/25, XY CHEST PORTABLE on DOS: 02/04/25 Findings: The heart size is normal with pulmonary vascular congestion. There is a trace right pleural effusion. There is no dense consolidation IMPRESSION: Pulmonary vascular congestion with trace right pleural effusion
[2025-03-01 19:14] LABS: INR 1.05 (0.9-1.15); Partial Thromboplastin Time 28.5 SEC (24.5-34.5); Prothrombin Time 11.1 sec (9.3-11.8)
[2025-03-01] MEDS: PANTOPRAZOLE 40 MG/10 ML VIAL INJ IV SCH (20:18)
[2025-03-01] MEDS: SODIUM CHLOR 0.9% PF (SALINE LOCK) 10ML VIAL/SYR IV SCH (22:03)
[2025-03-01 22:42] VITALS: PULSE 128; RESP 18; O2SAT 93
[2025-03-01] MEDS: HYDROcodone-ACET 5/325MG TAB PO PRN (23:03)
[2025-03-01] MEDS: SODIUM CHLORIDE 0.9% 1,000 ML IV SCH (23:04)
[2025-03-01] MEDS ORDERED: PANT40TA2 PO (23:10)
[2025-03-01 23:11] VITALS: BP 133/59; PULSE 128; RESP 20; TEMP 98.7; O2SAT 92
[2025-03-02] VITALS (8 sets, daily range): BP systolic 107–147; BP diastolic 51–65; PULSE 11–113; RESP 12–19; TEMP 97.7–98.8; O2SAT 92–98
[2025-03-02] MEDS: MORPHINE SULFATE 4 MG/ML SYR/VIAL IV ONE (05:11)
[2025-03-02 07:10] LABS: Hematocrit 28.5 % (36.0-46.0); Hemoglobin 10.1 g/dL (12.2-16.2); Nucleated Red Blood Cells % 0.0 %
[2025-03-02 07:12] LABS: Mean Corpuscular Hemoglobin 36.1 pg (28.0-32.0); Mean Corpuscular Volume 101.6 fL (80.0-100.0)
[2025-03-02 07:36] LABS: Alanine Aminotransferase 38 U/L (7-40); Albumin 3.3 g/dL (3.2-4.8); Anion Gap 7 (5-15); BUN/Creatinine Ratio 15.8 (10.0-20.0); Bilirubin, Total 1.0 mg/dL (0.2-1.0); Calcium 9.0 mg/dL (8.7-10.4); Carbon Dioxide 27 mmol/L (20-31); Chloride 103 mmol/L (98-107); Glucose 104 mg/dL (74-106); Potassium 4.5 mmol/L (3.5-5.1); Sodium 137 mmol/L (136-145); Total Protein 6.4 g/dL (5.7-8.2)
[2025-03-02 07:38] LABS: Alkaline Phosphatase 366 U/L (46-116); Blood Urea Nitrogen 9 mg/dL (9-23)
[2025-03-02] MEDS: ENOXAPARIN SOD 40 MG/0.4 ML SYRINGE SC SCH (10:01)
[2025-03-02 10:38] LABS: Urine Protein, UAD Negative (Negative)
--- NOTE | 2025-03-02 15:06 | DVHINCON2 ---
Consultation - Surgical Date Seen: Mar 02, 2025 Referring Physician Reason for Consultation Cholecystitis History of Present Illness History of Present Illness Mrs. Amezquita the venous is a 84-year-old female who presents to the hospital with right upper quadrant abdominal pain since Saturday. States that this pain happens occasionally, after eating fatty or spicy foods. It is associated with nausea but no vomiting. Denies fevers, chills, acholic stools, changes in urinary or stooling habits. Patient had a recent surgery, ex lap with a end colostomy for large bowel obstruction on February 05, 2025. Past Medical/Surgical History Past Medical/Surgical History PMH cholelithiasis, large bowel obstruction due to mass, hypertension, GERD PSH ex lap with loop colostomy for LBO due to mass Family and Social History Family and Social History The history noncontributory ETOH/T Ob/drugs denies Allergies and medications Allergies: Coded Allergies: No Known Drug Allergy (Verified Allergy, Unknown, 03/20/21) Home Meds Active Scripts Valsartan (Valsartan) 80 Mg Tab, 160 MG PO DAILY for 30 Days, #60 TAB 0 Refills Prov:ALONZO HERNANDEZ RESIDENT 02/12/25 Reported Medications Pantoprazole Sodium Sesquihydr (Protonix) 40 Mg Tab, 40 MG PO DAILY, #30 TAB 03/01/25 Review of systems Review of Systems: Deferred Examination Vital signs Vital Signs Date Time Temp Pulse Resp B/P (MAP) Pulse Ox O2 Delivery O2 Flow Rate FiO2 03/02/25 13:00 98.8 70 18 136/61 (86) 98 98.8 03/02/25 08:00 Room Air* 0 21 Medications Current Medications Medications (Trade) Dose Ordered Sig/Juan Route PRN Reason Start Time Stop Time Status Last Admin Sodium Chloride (Saline [place] N[place]) 10 ml Q8HR IV 03/01/25 22:00 03/02/25 14:00 Sodium Chloride 1,000 ml @ 60 mls/hr [id number] IV 03/01/25 18:00 03/02/25 10:44 Acetaminophen/ Hydrocodone Bitart ([place] 5/325MG Tab) 1 tab Q4HP PRN PO MODERATE PAIN (4-6 PAIN SCALE) 03/01/25 18:00 03/02/25 08:25 Ondansetron HCl (Zofran) 4 mg Q4HP PRN IV NAUSEA / VOMITING 03/01/25 18:00 Enoxaparin Sodium (Lovenox) 40 mg DAILY SC 03/02/25 10:00 03/02/25 10:01 Acetaminophen (Tylenol Tablet) 650 mg Q6HP PRN PO PAIN SCALE 1-3 OR TEMP>100.4 03/01/25 18:00 Nitroglycerin (Ntrostat Sublingual) 0.4 mg Q5MINP PRN SL FOR CHEST PAIN 03/01/25 18:00 Morphine Sulfate 2 mg Q30M PRN IV FOR CHEST PAIN 03/01/25 18:00 Ceftriaxone Sodium 50 ml @ 100 mls/hr DAILY@09 IV 03/02/25 09:00 03/02/25 08:25 Metronidazole 100 ml @ 100 mls/hr Q8HR IV 03/01/25 22:00 03/02/25 05:10 Pantoprazole Sodium (Protonix) 40 mg DAILY IV 03/01/25 18:30 03/02/25 10:01 Laboratory Labs Test 03/02/25 08:30 03/02/25 06:18 03/01/25 18:10 03/01/25 14:02 Range/Units Urine Color Yellow Yellow Urine Clarity Clear Clear Urine pH 5.5 5.0-9.0 Urine Specific [place] 1.015 1.001-1.035 Urine Protein Negative Negative Urine Ketones Trace Negative Urine Blood Negative Negative /uL Urine Nitrite Negative Negative Urine Bilirubin Negative Negative Urine Urobilinogen Normal Negative mg/dL Urine Leukocyte Esterase Negative Negative /uL Urine RBC 1 0 - 4 /hpf Urine Microscopic WBC 1 0-5 /HPF Urine Squamous Epithelial Cells Few <5 /hpf Urine Bacteria None seen None Seen /hpf Urine Hyaline Casts Few 0 - 2 /lpf Urine Mucus Few None Seen Urine Glucose Normal Normal mg/dL White Blood Count 12.5 H 4.4-10.8 10^3/uL Red Blood Count 2.80 L 4.0-5.20 10^6/uL Hemoglobin 10.1 L 12.2-16.2 g/dL Hematocrit 28.5 #L 36.0-46.0 % Mean Corpuscular Volume 101.6 #H 80.0-100.0 fL Mean Corpuscular Hemoglobin 36.1 H 28.0-32.0 pg Mean Corpuscular Hemoglobin Concent 35.6 32.0-36.0 g/dL Red Cell Distribution Width 13.7 11.8-14.3 % Platelet Count 302 140-450 10^3/uL Mean Platelet Volume 7.5 6.9-10.8 fL Neutrophils (%) (Auto) 74.9 37.0-80.0 % Lymphocytes (%) (Auto) 8.6 L 10.0-50.0 % Monocytes (%) (Auto) 15.8 H 0.0-12.0 % Eosinophils (%) (Auto) 0.5 0.0-7.0 % Basophils (%) (Auto) 0.2 0.0-2.0 % Neutrophils # (Auto) 9.4 H 1.6-8.6 10 ^3/uL Lymphocytes # (Auto) 1.1 0.4-5.4 10 ^3/uL Monocytes # (Auto) 2.0 H 0-1.3 10 ^3/uL Eosinophils # (Auto) 0.1 0-0.8 10 ^3/uL Basophils # (Auto) 0 0-0.2 10 ^3/uL Nucleated Red Blood Cells 0.0 % Sodium Level 137 136-145 mmol/L Potassium Level 4.5 3.5-5.1 mmol/L Chloride Level 103 98-107 mmol/L Carbon Dioxide Level 27 20-31 mmol/L Anion Gap 7 5-15 Blood Urea Nitrogen 9 9-23 mg/dL Creatinine 0.57 0.550-1.02 mg/dL Glomerular Filtration Rate Calc 88 >90 mL/min BUN/Creatinine Ratio 15.8 10.0-20.0 Serum Glucose 104 74-106 mg/dL Calcium Level 9.0 8.7-10.4 mg/dL Total Bilirubin 1.0 0.2-1.0 mg/dL Aspartate Amino Transferase (AST) 37 13-40 U/L Alanine Aminotransferase (ALT) 38 7-40 U/L Alkaline Phosphatase 366 H 46-116 U/L Total Protein 6.4 5.7-8.2 g/dL Albumin 3.3 3.2-4.8 g/dL Prothrombin Time 11.1 9.3-11.8 sec Prothrombin Time INR 1.05 0.9-1.15 Activated Partial Thromboplast Time 28.5 24.5-34.5 SEC Lactic Acid Level 1.2 0.4-2.0 mmol/L Magnesium Level 2.0 1.6-2.6 mg/dL B-Type Natriuretic Peptide 33.74 0-100 pg/mL Lipase 31 12-53 U/L Examination: GENERAL:Normal (AA 0 x3), HEENT:Normal (No icterus), LUNGS:Normal (Nonlabored breathing with symmetric expansion), ABDOMEN:Normal (Nondistended, soft, depressible, ex lap scar healing well, left abdominal ostomy with stool in bag and pink mucosa, right upper quadrant tenderness, no rebound, no guarding), SKIN:Normal (No jaundice) Problem List/Assessment/Plan Problems: (1) Acute cholecystitis Assessment and Plan Mrs. Mckeon is a 84-year-old female who presented with the acute cholecystitis. Ultrasound shows a stone at the neck of the gallbladder but no surrounding pericholecystic fluid. On physical exam she is tender to the right upper quadrant. 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 We will manage her acute inflammation with antibiotics, but if symptoms do not subside and she continues to worsen she might need a cholecystostomy tube. 1. Plan for nonoperative management due to reason ex lap on February 05, 2025 2. We will start her on Zosyn 3. NPO except medications for today, we will re-evaluate tomorrow 4. Pain and nausea control 5. If nonoperative management fails she might require a cholecystostomy tube Plan discussed with Plan discussed with: Patient, Daughter, Son Visit Coding Surgery Date of Service if different f: Mar 02, 2025 Billing Provider: SCARLET GRULLON MD Surgery Visit Codes: [id number] - INP CONSULT <110 MIN SCARLET GRULLON MD Mar 02, 2025 15:06
[2025-03-02] MEDS ORDERED: HYDROcodone-ACET 10/325MG TAB PO PRN (15:15)
--- NOTE | 2025-03-02 15:21 | DVHPN2 ---
Changes from previous H/P or p: No Changes Objective Vitals Vital Signs Date Time Temp Pulse Resp B/P (MAP) Pulse Ox O2 Delivery O2 Flow Rate FiO2 03/02/25 13:00 98.8 70 18 136/61 (86) 98 98.8 03/02/25 08:00 Room Air* 0 21 Intake/Output Intake and Output 03/02/25 06:59 Intake Total 250 ml Balance 250 ml Intake Oral 0 ml IV Total 250 ml # Voids 1 Medications Current Medications Medications Dose Ordered Sig/Juan Route Start Time Stop Time Status Last Admin Dose Admin Sodium Chloride 10 ml Q8HR IV 03/01/25 22:00 03/02/25 14:00 10 ML Sodium Chloride 1,000 ml @ 60 mls/hr [id number] IV 03/01/25 18:00 03/02/25 10:44 60 MLS/HR Acetaminophen/ Hydrocodone Bitart 1 tab Q4HP PRN PO 03/01/25 18:00 03/02/25 08:25 1 TAB Ondansetron HCl 4 mg Q4HP PRN IV 03/01/25 18:00 Enoxaparin Sodium 40 mg DAILY SC 03/02/25 10:00 03/02/25 10:01 40 MG Acetaminophen 650 mg Q6HP PRN PO 03/01/25 18:00 Nitroglycerin 0.4 mg Q5MINP PRN SL 03/01/25 18:00 Morphine Sulfate 2 mg Q30M PRN IV 03/01/25 18:00 Pantoprazole Sodium 40 mg DAILY IV 03/01/25 18:30 03/02/25 10:01 40 MG Piperacillin Sod/ Tazobactam Sod 100 ml @ 25 mls/hr Q6HR IV 03/02/25 18:00 UNV Acetaminophen/ Hydrocodone Bitart 1 tab Q4HP PRN PO 03/02/25 15:15 UNV Acetaminophen 650 mg Q6HR PO 03/02/25 18:00 UNV Laboratory Results Laboratory Tests 03/02/25 06:18 Chemistry Test 03/02/25 06:18 Albumin 3.3 g/dL (3.2-4.8) Calcium Level 9.0 mg/dL (8.7-10.4) Total Protein 6.4 g/dL (5.7-8.2) Coagulation Test 03/01/25 18:10 Prothrombin Time 11.1 sec (9.3-11.8) Prothrombin Time INR 1.05 (0.9-1.15) Activated Partial Thromboplast Time 28.5 SEC (24.5-34.5) LFT Test 03/02/25 06:18 Alanine Aminotransferase (ALT) 38 U/L (7-40) Alkaline Phosphatase 366 U/L (46-116) H Aspartate Amino Transferase (AST) 37 U/L (13-40) Total Bilirubin 1.0 mg/dL (0.2-1.0) Urinalysis Test 03/02/25 08:30 Urine Color Yellow (Yellow) Urine Clarity Clear (Clear) Urine pH 5.5 (5.0-9.0) Urine Specific [place] 1.015 (1.001-1.035) Urine Protein Negative (Negative) Urine Ketones Trace (Negative) Urine Blood Negative /uL (Negative) Urine Nitrite Negative (Negative) Urine Bilirubin Negative (Negative) Urine Urobilinogen Normal mg/dL (Negative) Urine Leukocyte Esterase Negative /uL (Negative) Urine RBC 1 /hpf (0 - 4) Urine Microscopic WBC 1 /HPF (0-5) Urine Squamous Epithelial Cells Few /hpf (<5) Urine Bacteria None seen /hpf (None Seen) Urine Hyaline Casts Few /lpf (0 - 2) Urine Mucus Few (None Seen) Urine Glucose Normal mg/dL (Normal) Labs and/or images reviewed: Labs reviewed by me, Image(s) reviewed by me Assessment/Plan Assessment/Plan Sepsis possibly secondary to cholecystitis Symptomatic cholelithiasis: Consult by Dr. Rose appreciated placed on Zosyn conservative management for the present Colonic mass status post colostomy Transaminitis Acute dehydration Moderate malnutrition Time spent 55 minutes Advanced care planning time 20 minutes Patient is full code Plan discussed with: Patient Date of Service: Mar 02, 2025 Billing Provider: JANE GARRISON MD Common Visit Codes: [id number] INP/OBS CARE(HIGH) Secondary Visit Codes: [id number] CARE PLAN 30 MINUTES JANE GARRISON MD Mar 02, 2025 15:21
[2025-03-02] MEDS: PIPERACILLIN-TAZOB 3.375GM 100 ML IV SCH (17:46)
[2025-03-02] MEDS: ACETAMINOPHEN 325 MG TAB PO SCH (17:47)
[2025-03-03] VITALS (8 sets, daily range): BP systolic 132–168; BP diastolic 52–77; PULSE 86–109; RESP 14–20; TEMP 97.6–98.6; O2SAT 90–98
[2025-03-03 06:23] LABS: Hematocrit 29.7 % (36.0-46.0); Hemoglobin 10.3 g/dL (12.2-16.2); Mean Corpuscular Hemoglobin 34.0 pg (28.0-32.0); Mean Corpuscular Volume 97.6 fL (80.0-100.0); Nucleated Red Blood Cells % 0.0 %
[2025-03-03 06:42] LABS: Alanine Aminotransferase 30 U/L (7-40); Albumin 3.4 g/dL (3.2-4.8); Anion Gap 9 (5-15); BUN/Creatinine Ratio 18.5 (10.0-20.0); Blood Urea Nitrogen 10 mg/dL (9-23); Calcium 9.4 mg/dL (8.7-10.4); Carbon Dioxide 26 mmol/L (20-31); Chloride 103 mmol/L (98-107); Potassium 4.3 mmol/L (3.5-5.1); Sodium 138 mmol/L (136-145); Total Protein 6.5 g/dL (5.7-8.2)
[2025-03-03 06:43] LABS: Bilirubin, Total 0.8 mg/dL (0.2-1.0)
[2025-03-03 06:45] LABS: Alkaline Phosphatase 335 U/L (46-116); Bilirubin, Direct 0.4 mg/dL (<0.3); Glucose 66 mg/dL (74-106)
--- NOTE | 2025-03-03 10:47 | DVHPN2 ---
Reviewed: Care Plan Changes from previous H/P or p: No Changes Objective Vitals Vital Signs Date Time Temp Pulse Resp B/P (MAP) Pulse Ox O2 Delivery O2 Flow Rate FiO2 03/03/25 08:55 98.5 87 20 132/52 (78) 90 98.5 03/03/25 08:00 Room Air* 0 21 Intake/Output Intake and Output 03/03/25 07:00 Intake Total 2 ml Balance 2 ml Intake Oral 0 ml Tube Feeding 2 ml # Voids 2 Medications Current Medications Medications Dose Ordered Sig/Juan Route Start Time Stop Time Status Last Admin Dose Admin Sodium Chloride 10 ml Q8HR IV 03/01/25 22:00 03/03/25 05:25 10 ML Sodium Chloride 1,000 ml @ 60 mls/hr [id number] IV 03/01/25 18:00 03/03/25 02:49 60 MLS/HR Acetaminophen/ Hydrocodone Bitart 1 tab Q4HP PRN PO 03/01/25 18:00 03/02/25 08:25 1 TAB Ondansetron HCl 4 mg Q4HP PRN IV 03/01/25 18:00 Enoxaparin Sodium 40 mg DAILY SC 03/02/25 10:00 03/03/25 09:48 40 MG Acetaminophen 650 mg Q6HP PRN PO 03/01/25 18:00 Nitroglycerin 0.4 mg Q5MINP PRN SL 03/01/25 18:00 Morphine Sulfate 2 mg Q30M PRN IV 03/01/25 18:00 Pantoprazole Sodium 40 mg DAILY IV 03/01/25 18:30 03/03/25 09:48 40 MG Piperacillin Sod/ Tazobactam Sod 100 ml @ 25 mls/hr Q8HR IV 03/02/25 17:35 03/03/25 05:25 25 MLS/HR Acetaminophen/ Hydrocodone Bitart 1 tab Q4HP PRN PO 03/02/25 15:15 Acetaminophen 650 mg Q6HR PO 03/02/25 18:00 03/03/25 05:26 650 MG Laboratory Results Laboratory Tests 03/03/25 04:59 Chemistry Test 03/03/25 04:59 Albumin 3.4 g/dL (3.2-4.8) Calcium Level 9.4 mg/dL (8.7-10.4) Total Protein 6.5 g/dL (5.7-8.2) LFT Test 03/03/25 04:59 Alanine Aminotransferase (ALT) 30 U/L (7-40) Alkaline Phosphatase 335 U/L (46-116) H Aspartate Amino Transferase (AST) 30 U/L (13-40) Direct Bilirubin 0.4 mg/dL (<0.3) H Total Bilirubin 0.8 mg/dL (0.2-1.0) Urinalysis Test 03/02/25 08:30 Urine Color Yellow (Yellow) Urine Clarity Clear (Clear) Urine pH 5.5 (5.0-9.0) Urine Specific [place] 1.015 (1.001-1.035) Urine Protein Negative (Negative) Urine Ketones Trace (Negative) Urine Blood Negative /uL (Negative) Urine Nitrite Negative (Negative) Urine Bilirubin Negative (Negative) Urine Urobilinogen Normal mg/dL (Negative) Urine Leukocyte Esterase Negative /uL (Negative) Urine RBC 1 /hpf (0 - 4) Urine Microscopic WBC 1 /HPF (0-5) Urine Squamous Epithelial Cells Few /hpf (<5) Urine Bacteria None seen /hpf (None Seen) Urine Hyaline Casts Few /lpf (0 - 2) Urine Mucus Few (None Seen) Urine Glucose Normal mg/dL (Normal) Microbiology Microbiology Date/Time Source Procedure Growth Status 03/01/25 18:25 Blood Blood Culture - Preliminary NO GROWTH AFTER 24 HOURS OF INCUBATION. Resulted Labs and/or images reviewed: Labs reviewed by me, Image(s) reviewed by me Assessment/Plan Assessment/Plan Sepsis possibly secondary to cholecystitis Symptomatic cholelithiasis: Consult by Dr. 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 Transaminitis Sigmoid diverticulitis Colon mass with liver mets History of colon polyps diagnosed one year ago by gastro group and was seen at [facility] Acute dehydration Moderate malnutrition Time spent 55 minutes Advanced care planning time 20 minutes Patient is full code Discussed with the patient's daughter Kari [phone] at bedside about the diagnosis management and prognosis RN Kristin at bedside Plan discussed with: Patient Date of Service: Mar 03, 2025 Billing Provider: JANE GARRISON MD Common Visit Codes: [id number] INP/OBS CARE(HIGH) JANE GARRISON MD Mar 03, 2025 10:47
[2025-03-03] MEDS ORDERED: HYDROcodone-ACET 5/325MG TAB PO PRN (12:45)
--- NOTE | 2025-03-03 12:46 | DVHPN2 ---
Progress Note - Surgical Date Seen: Mar 03, 2025 Post op day Post op day: 0 Subjective Patient reports: Feels better (Patient feels better, states that the pain has improved although she still has some residual pain, somewhat hungry) Review of Systems: Deferred Objective Vital signs Vital Sign Date Time Temp Pulse Resp B/P (MAP) Pulse Ox O2 Delivery O2 Flow Rate FiO2 03/03/25 08:55 98.5 87 20 132/52 (78) 90 98.5 03/03/25 08:00 Room Air* 0 21 Total Intake and Output 03/02/25 03/02/25 03/03/25 15:00 23:00 07:00 Intake Total 0 ml 2 ml Balance 0 ml 2 ml Medications Current Medications Medications Dose Ordered Sig/Juan Route Start Time Stop Time Status Last Admin Dose Admin Sodium Chloride 10 ml Q8HR IV 03/01/25 22:00 03/03/25 05:25 10 ML Sodium Chloride 1,000 ml @ 60 mls/hr [id number] IV 03/01/25 18:00 03/03/25 02:49 60 MLS/HR Acetaminophen/ Hydrocodone Bitart 1 tab Q4HP PRN PO 03/01/25 18:00 03/02/25 08:25 1 TAB Ondansetron HCl 4 mg Q4HP PRN IV 03/01/25 18:00 Enoxaparin Sodium 40 mg DAILY SC 03/02/25 10:00 03/03/25 09:48 40 MG Acetaminophen 650 mg Q6HP PRN PO 03/01/25 18:00 Nitroglycerin 0.4 mg Q5MINP PRN SL 03/01/25 18:00 Morphine Sulfate 2 mg Q30M PRN IV 03/01/25 18:00 Pantoprazole Sodium 40 mg DAILY IV 03/01/25 18:30 03/03/25 09:48 40 MG Piperacillin Sod/ Tazobactam Sod 100 ml @ 25 mls/hr Q8HR IV 03/02/25 17:35 03/03/25 05:25 25 MLS/HR Acetaminophen/ Hydrocodone Bitart 1 tab Q4HP PRN PO 03/02/25 15:15 Acetaminophen 650 mg Q6HR PO 03/02/25 18:00 03/03/25 05:26 650 MG Laboratory Laboratory Tests 03/03/25 04:59 Test 03/03/25 04:59 Range/Units Serum Glucose 66 L 74-106 mg/dL Microbiology Date/Time Source Procedure Growth Status 03/01/25 18:25 Blood Blood Culture - Preliminary NO GROWTH AFTER 24 HOURS OF INCUBATION. Resulted Examination: GENERAL:Normal (AAO x3), HEENT:Normal (No icterus, neck supple), LUNGS:Normal (Nonlabored breathing with symmetric expansion), ABDOMEN:Normal (Nondistended, soft, depressible, minimal right upper quadrant tenderness, ostomy with stool production and pink mucosa, midline incision healing well) Labs and/or images reviewed: Labs reviewed by me (Leukocytosis resolved) Problem List/Assessment/Plan Assessment and Plan Mrs. Mckeon is a 84-year-old female who presented with the acute cholecystitis. Ultrasound shows a stone at the neck of the gallbladder but no surrounding pericholecystic fluid. On physical exam she is tender to the right upper quadrant. 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 We will manage her acute inflammation with antibiotics, but if symptoms do not subside and she continues to worsen she might need a cholecystostomy tube. Interval: Patient doing well today, states that her pain has decreased in severity although still has some right flank pain that radiates to the back. She has been afebrile for the last 24 hours, was occasionally tachycardic but in the last couple hours she has not been. We will continue with nonoperative management. 1. Plan for nonoperative management due to reason ex lap on February 05, 2025 2. We will start her on Zosyn 3. Clear liquid diet 4. Pain and nausea control: Adjusted her pain medications 5. If nonoperative management fails she might require a cholecystostomy tube 6. We will reassess tomorrow My Orders My Orders Orders - SCARLET GRULLON MD Procedure Category Date Status Time Piperacillin-Tazob PHA 03/02/25 In Process 3.375gm (Zosyn 3.375g 17:35 Hydrocodone-Acet PHA 03/02/25 In Process 10/325mg Tab ([place] 15:15 Acetaminophen Tablet PHA 03/02/25 In Process (Tylenol Tablet) 18:00 Npo Except For TIFFANIE 03/02/25 In Process Medications 15:06 Clear Liq Diet DIET 03/03/25 Transmitted Lunch Hydrocodone-Acet PHA 03/03/25 Transmitted 5/325mg Tab ([place] 12:45 Hydrocodone-Acet PHA 03/03/25 Transmitted 10/325mg Tab ([place] 12:45 Complete Blood Count LAB 03/04/25 Verified 04:00 Comprehensive LAB 03/04/25 Verified Metabolic Panel 04:00 Plan discussed with Plan discussed with: Patient Visit Coding Surgery Date of Service if different f: Mar 03, 2025 Billing Provider: CSARLET GRULLON MD Surgery Visit Codes: [id number] INP/OBS CARE(HIGH) SCARLET GRULLON MD Mar 03, 2025 12:46
[2025-03-03] MEDS: HYDROcodone-ACET 10/325MG TAB PO PRN (20:23)
[2025-03-04 01:00] VITALS: BP 144/76; PULSE 79; RESP 16; O2SAT 94
[2025-03-04 05:00] VITALS: BP 158/61; PULSE 107; RESP 16; O2SAT 92
[2025-03-04 06:57] LABS: Alanine Aminotransferase 29 U/L (7-40); Albumin 3.6 g/dL (3.2-4.8); Alkaline Phosphatase 365 U/L (46-116); Anion Gap 10 (5-15); BUN/Creatinine Ratio 11.5 (10.0-20.0); Bilirubin, Total 0.8 mg/dL (0.2-1.0); Blood Urea Nitrogen 7 mg/dL (9-23); Calcium 9.3 mg/dL (8.7-10.4); Carbon Dioxide 25 mmol/L (20-31); Chloride 102 mmol/L (98-107); Glucose 82 mg/dL (74-106); Potassium 3.5 mmol/L (3.5-5.1); Sodium 137 mmol/L (136-145); Total Protein 7.1 g/dL (5.7-8.2)
[2025-03-04 07:58] LABS: Hematocrit 33.3 % (36.0-46.0); Hemoglobin 11.1 g/dL (12.2-16.2); Mean Corpuscular Hemoglobin 31.0 pg (28.0-32.0); Mean Corpuscular Volume 92.6 fL (80.0-100.0); Nucleated Red Blood Cells % 0.0 %
[2025-03-04 09:00] VITALS: BP 134/57; PULSE 95; RESP 16; TEMP 98.3; O2SAT 96
--- NOTE | 2025-03-04 09:42 | DVHPN2 ---
Reviewed: Care Plan Changes from previous H/P or p: No Changes Objective Vitals Vital Signs Date Time Temp Pulse Resp B/P (MAP) Pulse Ox O2 Delivery O2 Flow Rate FiO2 03/04/25 08:12 Room Air* 0 21 03/04/25 05:00 107 16 158/61 (93) 92 03/03/25 17:15 98.6 98.6 Intake/Output Intake and Output 03/04/25 07:00 Intake Total 1650 ml Balance 1650 ml Intake Oral 1550 ml IV Total 100 ml # Voids 6 Medications Current Medications Medications Dose Ordered Sig/Juan Route Start Time Stop Time Status Last Admin Dose Admin Sodium Chloride 10 ml Q8HR IV 03/01/25 22:00 03/04/25 05:20 10 ML Sodium Chloride 1,000 ml @ 60 mls/hr [id number] IV 03/01/25 18:00 03/03/25 21:24 60 MLS/HR Ondansetron HCl 4 mg Q4HP PRN IV 03/01/25 18:00 Enoxaparin Sodium 40 mg DAILY SC 03/02/25 10:00 03/03/25 09:48 40 MG Nitroglycerin 0.4 mg Q5MINP PRN SL 03/01/25 18:00 Morphine Sulfate 2 mg Q30M PRN IV 03/01/25 18:00 Pantoprazole Sodium 40 mg DAILY IV 03/01/25 18:30 03/03/25 09:48 40 MG Piperacillin Sod/ Tazobactam Sod 100 ml @ 25 mls/hr Q8HR IV 03/02/25 17:35 03/04/25 05:21 25 MLS/HR Acetaminophen 650 mg Q6HR PO 03/02/25 18:00 03/04/25 05:19 650 MG Acetaminophen/ Hydrocodone Bitart 1 tab Q6HPRN PRN PO 03/03/25 12:45 Acetaminophen/ Hydrocodone Bitart 1 tab Q6HP PRN PO 03/03/25 12:45 03/03/25 20:23 1 TAB Laboratory Results Laboratory Tests 03/04/25 05:44 Chemistry Test 03/04/25 05:44 Albumin 3.6 g/dL (3.2-4.8) Calcium Level 9.3 mg/dL (8.7-10.4) Total Protein 7.1 g/dL (5.7-8.2) LFT Test 03/04/25 05:44 Alanine Aminotransferase (ALT) 29 U/L (7-40) Alkaline Phosphatase 365 U/L (46-116) H Aspartate Amino Transferase (AST) 37 U/L (13-40) Total Bilirubin 0.8 mg/dL (0.2-1.0) Urinalysis Test 03/02/25 08:30 Urine Color Yellow (Yellow) Urine Clarity Clear (Clear) Urine pH 5.5 (5.0-9.0) Urine Specific [place] 1.015 (1.001-1.035) Urine Protein Negative (Negative) Urine Ketones Trace (Negative) Urine Blood Negative /uL (Negative) Urine Nitrite Negative (Negative) Urine Bilirubin Negative (Negative) Urine Urobilinogen Normal mg/dL (Negative) Urine Leukocyte Esterase Negative /uL (Negative) Urine RBC 1 /hpf (0 - 4) Urine Microscopic WBC 1 /HPF (0-5) Urine Squamous Epithelial Cells Few /hpf (<5) Urine Bacteria None seen /hpf (None Seen) Urine Hyaline Casts Few /lpf (0 - 2) Urine Mucus Few (None Seen) Urine Glucose Normal mg/dL (Normal) Microbiology Microbiology Date/Time Source Procedure Growth Status 03/01/25 18:25 Blood Blood Culture - Preliminary NO GROWTH AFTER 48 HOURS OF INCUBATION. Resulted Labs and/or images reviewed: Labs reviewed by me, Image(s) reviewed by me Assessment/Plan Assessment/Plan Sepsis possibly secondary to cholecystitis Symptomatic cholelithiasis: Consult by Dr. 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 Transaminitis Sigmoid diverticulitis Colon mass with liver mets History of colon polyps diagnosed one year ago by gastro group and was seen at [facility] Acute dehydration Moderate malnutrition Time spent 55 minutes Advanced care planning time 20 minutes Patient is full code Discussed with the patient's daughter Kari [phone] at bedside about the diagnosis management and prognosis Patient is thinking of leaving AMA to follow up with the biopsy report from [facility] ([place] I advised her that we are awaiting for the surgeon to re-evaluate her. MADAN Andre at bedside Plan discussed with: Patient Date of Service: Mar 04, 2025 Billing Provider: JANE GARRISON MD Common Visit Codes: [id number] INP/OBS CARE(HIGH) JANE GARRISON MD Mar 04, 2025 09:42
[2025-03-04] MEDS ORDERED: METR-344 PO (10:57)
[2025-03-04] MEDS ORDERED: LEVO500T91 PO (10:57)
[2025-03-04] MEDS ORDERED: HYDR-4902 PO (10:57)
--- NOTE | 2025-03-04 11:02 | DVHDS2 ---
Discharge Summary Date of Admission Mar 01, 2025 at 17:48 Date of Discharge: Mar 04, 2025 Admitting Diagnosis Right upper quadrant abdominal pain Wounds: None Labs/Diagnostic Data: Laboratory Results Test 03/04/25 05:44 03/03/25 04:59 03/02/25 08:30 03/01/25 18:10 White Blood Count 9.3 10^3/uL (4.4-10.8) Red Blood Count 3.60 10^6/uL (4.0-5.20) Hemoglobin 11.1 g/dL (12.2-16.2) Hematocrit 33.3 % (36.0-46.0) Mean Corpuscular Volume 92.6 fL (80.0-100.0) Mean Corpuscular Hemoglobin 31.0 pg (28.0-32.0) Mean Corpuscular Hemoglobin Concent 33.4 g/dL (32.0-36.0) Red Cell Distribution Width 14.1 % (11.8-14.3) Platelet Count 419 10^3/uL (140-450) Mean Platelet Volume 7.4 fL (6.9-10.8) Neutrophils (%) (Auto) 66.4 % (37.0-80.0) Lymphocytes (%) (Auto) 18.4 % (10.0-50.0) Monocytes (%) (Auto) 12.1 % (0.0-12.0) Eosinophils (%) (Auto) 2.4 % (0.0-7.0) Basophils (%) (Auto) 0.7 % (0.0-2.0) Neutrophils # (Auto) 6.2 10 ^3/uL (1.6-8.6) Lymphocytes # (Auto) 1.7 10 ^3/uL (0.4-5.4) Monocytes # (Auto) 1.1 10 ^3/uL (0-1.3) Eosinophils # (Auto) 0.2 10 ^3/uL (0-0.8) Basophils # (Auto) 0.1 10 ^3/uL (0-0.2) Nucleated Red Blood Cells 0.0 % Sodium Level 137 mmol/L (136-145) Potassium Level 3.5 mmol/L (3.5-5.1) Chloride Level 102 mmol/L (98-107) Carbon Dioxide Level 25 mmol/L (20-31) Anion Gap 10 (5-15) Blood Urea Nitrogen 7 mg/dL (9-23) Creatinine 0.61 mg/dL (0.550-1.02) Glomerular Filtration Rate Calc 87 mL/min (>90) BUN/Creatinine Ratio 11.5 (10.0-20.0) Serum Glucose 82 mg/dL (74-106) Calcium Level 9.3 mg/dL (8.7-10.4) Total Bilirubin 0.8 mg/dL (0.2-1.0) Aspartate Amino Transferase (AST) 37 U/L (13-40) Alanine Aminotransferase (ALT) 29 U/L (7-40) Alkaline Phosphatase 365 U/L (46-116) Total Protein 7.1 g/dL (5.7-8.2) Albumin 3.6 g/dL (3.2-4.8) Direct Bilirubin 0.4 mg/dL (<0.3) Urine Color Yellow (Yellow) Urine Clarity Clear (Clear) Urine pH 5.5 (5.0-9.0) Urine Specific Terry 1.015 (1.001-1.035) Urine Protein Negative (Negative) Urine Ketones Trace (Negative) Urine Blood Negative /uL (Negative) Urine Nitrite Negative (Negative) Urine Bilirubin Negative (Negative) Urine Urobilinogen Normal mg/dL (Negative) Urine Leukocyte Esterase Negative /uL (Negative) Urine RBC 1 /hpf (0 - 4) Urine Microscopic WBC 1 /HPF (0-5) Urine Squamous Epithelial Cells Few /hpf (<5) Urine Bacteria None seen /hpf (None Seen) Urine Hyaline Casts Few /lpf (0 - 2) Urine Mucus Few (None Seen) Urine Glucose Normal mg/dL (Normal) Prothrombin Time 11.1 sec (9.3-11.8) Prothrombin Time INR 1.05 (0.9-1.15) Activated Partial Thromboplast Time 28.5 SEC (24.5-34.5) Lactic Acid Level 1.2 mmol/L (0.4-2.0) Test 03/01/25 14:02 Magnesium Level 2.0 mg/dL (1.6-2.6) B-Type Natriuretic Peptide 33.74 pg/mL (0-100) Lipase 31 U/L (12-53) Other Laboratory Tests 03/04/25 05:44 Brief Hx & Hospital Course: 64-year-old female who had colonic polyps diagnosed one year ago by gastric group and seen by [facility] where she had the biopsy and waiting for the biopsy result. She had colonic mass and underwent laparotomy with a colostomy January 2025 this time she came into hospital for right upper quadrant found to have cholelithiasis with possible cholecystitis treated with the Zosyn . Surgeon Dr. Rose advised conservative management secondary to recent laparotomy. The patient has significantly improved and feels better. Treated with the antibiotics and pain medications Dr. Rose cleared for discharge. Patient is discharged home on Levaquin Flagyl and Universal she will keep her appointment with [facility] tomorrow for her biopsy result Daughter and RN Jes at bed side at the time of discussion of discharge plan. Consults/Reason for consult Surgeon Dr. Rose Operations or Procedures CT abdomen pelvis without contrast Gallbladder ultrasound Condition at Discharge: Fair Final Diagnosis/Problems List Sepsis possibly secondary to cholecystitis Symptomatic cholelithiasis: Consult by Dr. 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 Transaminitis Sigmoid diverticulitis Colon mass with liver mets History of colon polyps diagnosed one year ago by gastro group and was seen at [facility] Acute dehydration Moderate malnutrition Discharge Disposition: Home Discharge Instruct/Medications Diet: Cardiac 2g Na,low cholest Activity: Light activity Follow Up/Referral: Follow up with your primary Dr and the Dr at the [facility] Medications: Levaquin Flagyl Universal Transmitted to [facility] Scheduled Levofloxacin Hemihydrate (Levaquin 500 Mg), 1 TAB PO DAILY Metronidazole (Flagyl), 1 TAB PO TID Pantoprazole Sodium Sesquihydr (Protonix), 40 MG PO DAILY, (Reported) Valsartan (Valsartan), 160 MG PO DAILY Scheduled PRN Hydrocodone-Acetaminophen (Hydrocodone Bitartrate/AC 5-325 mg), 1 TAB PO QID PRN 39 (Time taken for discharge summary 39 minutes) Discharge Statement: "Patient was advised to return to the ER or call 911 if any headaches, dizziness, shortness of breath, chest pain, abdominal pain, bleeding, fevers, or worsening of medical condition. Patient was counseled about treatment plan, medications, possible side effects, patientverbalized understanding. All questions were answered to the best of my ability. This discharge took greater then 30 minutes in planning, reviewing documentation, counseling the patient, and discussing with other team members." ASSESSMENT ASSESSMENT Hospital Course Improved Assessment Sepsis possibly secondary to cholecystitis Symptomatic cholelithiasis: Consult by Dr. 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
[2025-03-04 11:50] VITALS: BP 134/57; PULSE 95; TEMP 36.8
--- NOTE | 2025-03-04 12:33 | DVHPN2 ---
Progress Note - Surgical Date Seen: Mar 04, 2025 Post op day Post op day: 0 Subjective Patient reports: Feels better (Patient feeling better, states that pain is mostly gone at this point, tolerated clear liquid diet, ambulating) Review of Systems: Deferred Objective Vital signs Vital Sign Date Time Temp Pulse Resp B/P (MAP) Pulse Ox O2 Delivery O2 Flow Rate FiO2 03/04/25 11:50 36.8 95 03/04/25 09:00 16 134/57 (82) 96 03/04/25 08:12 Room Air* 0 21 Total Intake and Output 03/03/25 03/03/25 03/04/25 15:00 23:00 07:00 Intake Total 150 ml 1500 ml Balance 150 ml 1500 ml Laboratory Laboratory Tests 03/04/25 05:44 Test 03/04/25 05:44 Range/Units Serum Glucose 82 74-106 mg/dL Microbiology Date/Time Source Procedure Growth Status 03/01/25 18:25 Blood Blood Culture - Preliminary NO GROWTH AFTER 48 HOURS OF INCUBATION. Resulted Examination: GENERAL:Normal (AAO x3), LUNGS:Normal (Nonlabored breathing with symmetric expansion), ABDOMEN:Normal (Nondistended, soft, depressible, ostomy with pink mucosa and stool in bag, midline incision healing well, no right upper quadrant tenderness or epigastric tenderness) Labs and/or images reviewed: Labs reviewed by me (No leukocytosis) Problem List/Assessment/Plan Assessment and Plan Mrs. Mckeon is a 84-year-old female who presented with the acute cholecystitis. Ultrasound shows a stone at the neck of the gallbladder but no surrounding pericholecystic fluid. On physical exam she is tender to the right upper quadrant. 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 We will manage her acute inflammation with antibiotics, but if symptoms do not subside and she continues to worsen she might need a cholecystostomy tube. Interval: Patient continues to improve, tolerated diet, no abdominal pain complaints at this point. Patient is cleared for discharge per surgical standpoint with continued p.o. antibiotics. 1. Cleared for discharge per surgical standpoint 2. Continue treatment with p.o. antibiotics at home 3. Low-fat diet 4. Pain control at home with Tylenol and [place] for breakthrough pain if needed 5. Follow up at clinic with Dr. Rose in 2 weeks Plan discussed with Plan discussed with: Patient, Daughter, Son Visit Coding Surgery Date of Service if different f: Mar 04, 2025 Billing Provider: SCARLET GRULLON MD Surgery Visit Codes: [id number] INP/OBS CARE(HIGH) SCARLET GRULLON MD Mar 04, 2025 12:33
== END 2025-03-04 12:20 | disposition home or self-care (01) | DRG 872 ==
LOC: ER 11:57 → OVERFLOW 17:48 → EAST 22:42
PROVIDERS: ADMIT Family Medicine; ATTEND Family Medicine
DX: A41.9 Sepsis, unspecified organism (principal); C78.7 Secondary malignant neoplasm of liver and intrahepatic bile duct; E44.0 Moderate protein-calorie malnutrition; K80.00 Calculus of gallbladder with acute cholecystitis without obstruction; K57.32 Diverticulitis of large intestine without perforation or abscess without bleeding; I10 Essential (primary) hypertension; K21.9 Gastro-esophageal reflux disease without esophagitis; E86.0 Dehydration; K63.9 Disease of intestine, unspecified; E78.5 Hyperlipidemia, unspecified; R74.01 Elevation of levels of liver transaminase levels; Z86.73 Personal history of transient ischemic attack (TIA), and cerebral infarction without residual deficits; Z93.3 Colostomy status; Z90.711 Acquired absence of uterus with remaining cervical stump; Z90.49 Acquired absence of other specified parts of digestive tract; Z86.0100 Personal history of colon polyps, unspecified; Z68.21 Body mass index [BMI] 21.0-21.9, adult
CPT/HCPCS: 36415; 71045; 76705; 80053; 81001; 82248; 83605; 83690; 83735; 83880; 85025; 85610; 85730; 87040; G0378; J2405; J2470; J2543; J3490